=== PATIENT | male | born 1940 | race Caucasian/White ===

== ENCOUNTER 2016-05-30 23:40 | Emergency (ER) | payer MEDICARE, MEDICAID ==
[~2016-05-30 23:40] MED LIST: /ATOR40TA; /ATOR40TA PO; /ESOM40CA; /ESOM40CA PO; ACET-654 PO; ALBU17IN INH; ALBU83IN INH; ALBUTEROL SULFATE; ALBUTEROL/ATROVENT; ALPR0.25 PO; AMLO10TA; AMLO10TA2 PO; ASPI81TA4 PO; ASPI81TA83; ASPI81TA85 PO; ATOR40TA PO; AUGM875T27 PO; AZIT250T3 PO; BISO10TA6 PO; BUDE20IN; CIPR500T89 PO; CLOP75TA2 PO; CODE60TA2 PO; COLA100C PO; COLA100C2; COMBAER6 INH; DOCU100C PO; DOCU10CA PO; DOKTAB2 PO; DULC10SU2 PR; FERR140T PO; FERR325T PO; FERR325T3 PO; FLAG500T PO; FLON0.054; FLUTISP; FURO40TA2 PO; HYDR25TAB PO; IPRA2IN INH; IPRASOL4 INH; K-TA10TA2 PO; LASI40TA PO; LEVA500T PO; LEVA750T PO; LISI20TA3 PO; LORA10TA2 PO; LOVE1INJ2 SC; MAALSUS18 PO; MICR10CA PO; MILKSUS PO; MULTLIQ7 PO; MYLASUS2 PO; NEUR300C PO; NICO14DI20 TD; NICO14DI3; NICO21PAT TD; NICO7DIS23 TD; NITR4TASL SL; NORCOTAB PO; NORV5TAB; OCEA0.654; OMEP20CA3 PO; OMEP40CA2 PO; PANT40TA2 PO; PARO20TA2 PO; PERC5TAB8; PLAV75TA2; PRED10TA PO; PRED20TA PO; PRED20TAB PO; PRED50TA PO; PRIL40CA PO; PROA1AER IN; PROA1AER INH; PROAAER INH; PROTPAK PO; REGL10TA6 PO; SALI0.653; SUCR1TA PO; SYMB16INH INH; THEO1CAP2 PO; TIZA4CAP3 PO; TRAM50TA2 PO; TYLE167L PO; TYLE325T5 PO; ULTR50TA PO; VITA500C24 PO; VITMTA PO; XANA0.25 PO; ZANT1TAB PO; ZEBE5TAB; ZITHTAB PO; [UNRECOGNIZED DRUG - CODE] PO; [UNRECOGNIZED DRUG - CODE] PO; combivent INH; z-pack PO
[2016-05-31] MEDS ORDERED: ONDANSETRON 4MG/2ML VIAL (J2405) As Ordered ONE (00:42)
[2016-05-31] MEDS ORDERED: MORPHINE 2 MG/ML 1ML SYRINGE As Ordered ONE (00:42)
[2016-05-31 01:06] LABS: VENOUS BASE EXCESS 4.3 (-2.0-2.0); VENOUS O2 SATURATION 54.5 % (60.0-80.0); VENOUS PARTIAL PRESSURE CO2 60.5 mmHg (38.0-50.0); VENOUS PARTIAL PRESSURE O2 28.8 mmHg (30.0-50.0); VENOUS STANDARD HCO3 27.3 MEQ/L; VENOUS TOTAL CO2 33.6 MEQ/L (24.0-28.0)
[2016-05-31 01:15] LABS: BASO % 0.4 % (0.0-1.0); EOS # 0.2 K/mm3 (0.0-0.50); EOS % 1.8 % (0.0-3.0); LARGE UNSTAINED CELL # 0.1 K/mm3 (0.0-0.4); LARGE UNSTAINED CELL % 1.5 % (0.0-4.0); LYMPH # 0.9 K/mm3 (1.5-4.5); MEAN CORPUSCULAR HEMOGLOBIN 26.9 pg (27.0-33.0); MEAN CORPUSCULAR HGB CONC 32.1 g/dl (32.0-36.5); MEAN CORPUSCULAR VOLUME 83.8 fl (80.0-96.0); MONO # 0.5 K/mm3 (0.0-0.8); MONO % 5.2 % (0.0-5.0); NEUTROPHILS # 7.4 K/mm3 (1.8-7.7); PLATELET COUNT, AUTOMATED 382 k/mm3 (150-450); RED CELL DISTRIBUTION WIDTH 15.1 % (11.5-14.5); WHITE BLOOD COUNT 9.1 K/mm3 (4.0-10.0)
[2016-05-31 01:35] LABS: CALCIUM LEVEL 8.8 MG/DL (8.8-10.2); CREATININE FOR GFR 1.24 MG/DL (0.70-1.30); POTASSIUM SERUM 4.2 MEQ/L (3.5-5.1)
[2016-05-31] MEDS ORDERED: FUROSEMIDE 40 MG/4 ML VIAL (J1940) As Ordered ONE (01:55)
[2016-05-31] MEDS ORDERED: GASTROGRAFIN SOLUTION 30ML (Q9963) As Ordered ONE (01:59)
[2016-05-31] MEDS ORDERED: IPRATROPIUM 0.5MG/ALBUTEROL 2.5MG INH SOL UD 3ML (DUONEB)(J7620) As Ordered ONE (02:50)
[2016-05-31] MEDS ORDERED: ISOVUE-370 76% 100ML VIAL (Q9967) As Ordered ONE (03:29)
--- NOTE | 2016-05-31 04:50 | REPUSA ---
CLINICAL HISTORY: Abdominal pain. TECHNIQUE: Multiple axial, sagittal and coronal CT images were obtained through the abdomen and pelvi s after administration of oral and intravenous contrast material. COMMENTS: Comparison is made to the prior exam performed on 06/07/2015. The liver is of uniform attenuation without mass or defect. There is no intra or extrahepatic biliary ductal dilatation. The spleen is normal. The gallbladder contains layering sludge/stones. The pancre as is of normal contour and attenuation characteristics. There is no evidence of adrenal mass. Right nephrectomy. There is no evidence of renal or ureteral mass. No renal or ureteral calculi are i dentified. There is no hydroureter or hydronephrosis. No evidence for appendicitis. There is no bowel wall thickening. No evidence for small or large tito l obstruction. There is no evidence of abdominal ascites or lymphadenopathy. There is no evidence of intrinsic or extrinsic bladder mass. There is no pelvic ascites or lymphadeno jose eduardo. Right inguinal hernia containing nonincarcerated small bowel is. Moderate large bowel fecal st asis. Mild prostatomegaly. Prostatic calcifications. Images of the lung bases show no evidence of pleural or parenchymal mass. There are no pleural effusi ons. Bilateral basilar atelectatic pulmonary changes more prominent on the right side. The bony structures are free of lytic or blastic lesions. Multilevel degenerative changes are seen in volving the thoracolumbar spine. Scattered calcifications are seen involving the aorta and major bran ches compatible with atherosclerosis. IMPRESSION: Right nephrectomy. Constipation. Nonincarcerated right inguinal hernia. Clinical evaluation is suggested. Thank you for your kind referral of this patient.
--- NOTE | 2016-05-31 06:59 | EDDOCDS ---
Physician Documentation [facility] Name: Eliel Silvestre Age: 76 yrs Sex: Male : 1940 Arrival Date: 05/30/2016 Time: 23:40 Bed 5 Private MD: Unknown Pcp Disposition: 05/31 06:05 Critical Care: Critical care not applicable. pc Disposition: 05/31/16 06:07 Discharged to Home/Self Care. Impression: Constipation, Unspecified combined systolic (congestive) and diastolic (congestive) heart failure, Chronic obstructive pulmonary disease, unspecified, Unilateral inguinal hernia, without obstruction or gangrene, recurrent - right. - Condition is Stable. - Discharge Instructions: Constipation, Adult. - Prescriptions for Miralax 17 gram/dose - take 17 gram by ORAL route once daily As needed dilute in 8 ounces of water or juice; 1 bottle. - Medication Reconciliation, Local Pharmacy Hours form. - Follow up: Michael Chavarria MD; When: Call to arrange an appointment; Reason: Continuance of care. - Problem is new. - Symptoms have improved. HPI: 00:32 This 76 yrs old Male presents to ER via Ambulance with complaints of pc Constipation. 00:32 The history is obtained from the patient. He says he has not been able to have a bowel pc movement in 2 days, which is causing his right inguinal hernia to hurt more than usual. He denies any nausea or vomiting or appetite changes. He denies fevers or chills. He had a prior repair that failed and he is left with a large hernia. He has end stage COPD, and CHF and says his coughing and breathing status are unchanged. The patient has experienced similar episodes in the past, multiple times. The patient has been recently seen by their primary care provider, for a routine, regularly scheduled appointment. 00:32 At their worst, the symptoms were a 10 out of 10. In the emergency department, the pc symptoms are a 10 out of 10. Historical: - Allergies: GABAPENTIN; BENZODIAZEPINESreported reaction to unknown benzodiazepine; - Home Meds: 1. atorvastatin 40 mg oral tab once daily (Last dose: 05/30/2016) 2. Combivent Inhl Unknown every 6 hours (Last dose: 05/31/2016) 3. DOK 100 mg oral tab 1 tab 2 times per day (Last dose: 05/30/2016) 4. ferrous sulfate 325 mg (65 mg iron) Oral tab daily (Last dose: 05/30/2016) 5. omeprazole 20 mg Oral cpDR 2 caps 2 times per day (Last dose: 05/30/2016) 6. Oxygen 2.0-2.5 L continuous (Last dose: 05/31/2016) 7. Paxil 20 mg Oral tab 1 tab once daily (Last dose: 05/30/2016) 8. prednisone 10 mg Oral tab once daily (Last dose: 05/30/2016) 9. symbicort 160-4.5 twice a day (Last dose: 05/30/2016) 10. tramadol 50 mg Oral tab 1 tab every 6 hours (Last dose: Unknown) 11. Xanax 0.25 mg Oral tab 1 tab 3 times per day for Anxiety (Last dose: 05/30/2016) 12. multivitamin Oral tab 1 tab daily - PMHx: COPD; Cataracts; cancer, kidney; colon polyps; - PSHx: stent, vascular (BLE's); Hernia repair- Right inguinal; Nephrectomy- Right; - The history from nurses notes was reviewed: and I agree with what is documented. - Social history: Smoking status: Patient uses tobacco products, light tobacco smoker. Patient uses Patient is visually impaired. - Family history: Not pertinent. - : The pt / caregiver states he / she is not on anticoagulants. Home medication list is obtained from the patient, pill bottles. - Hospitalizations: : No recent hospitalization is reported. - Exposure Risk Screening:: None identified. - Immunization history:: All immunizations up-to-date. - Social history:: the patient smokes cigarettes 2ppd the patient drinks alcohol, socially. - Code Status:: Full code. ROS: 00:32 All systems are negative except as listed. pc Exam: 00:32 General Appearance: alert, the patient is in mild distress. pc 00:32 EENT: normal eye inspection, ears, nose and throat normal, pharynx normal, mucous membranes moist 00:32 Neck: The exam reveals no acute abnormalities. ROM is normal and painless. No nuchal rigidity is noted.. 00:32 Respiratory: no respiratory distress, Breath sounds: wheezing, scattered, Decreased breath sounds, in the left posterior lower lobe and right posterior lower lobe. 00:32 CVS: regular pulse rate, regular rhythm, normal S1 and S2, no murmurs, strong peripheral pulses, normal capillary refill. 00:32 Abdomen: non-tender, no organomegaly, distended, tympanic to percussion a hernia is noted in the right inguinal area, and is not incarcerated. 00:32 Back: normal inspection. 00:32 Skin: skin color is normal, warm, dry. 00:32 Extremities: The extremities have a grossly normal appearance. 00:32 Neuro: oriented x 3, cranial nerves normal as tested, no motor deficits, no sensory deficits. 00:32 Psych: normal mood. Vital Signs: 05/30 23:48 BP 149 / 72; Pulse 103; Resp 20; Temp 96.5(O); Pulse Ox 94% on 2 lpm NC; Weight 58.97 baljeet kg / 130.01 lbs (R); Height 5 ft. 5 in. (165.10 cm) (R); Pain 01/30; 05/31 00:54 BP 135 / 68 (auto/); mv5 00:55 Pulse 98 MON; Pulse Ox 96% ; mv5 01:24 BP 128 / 61 (auto/); mv5 01:25 Pulse 98 MON; Pulse Ox 94% ; mv5 01:54 BP 150 / 63 (auto/); mv5 01:55 Pulse 98 MON; Pulse Ox 100% ; mv5 02:24 BP 134 / 67 (auto/); mv5 02:25 Pulse 98 MON; Pulse Ox 88% ; mv5 02:45 Pulse 96 MON; Pulse Ox 97% ; mv5 03:24 BP 132 / 69 (auto/); mv5 03:24 Pulse 74 MON; Pulse Ox 82% ; mv5 03:54 BP 124 / 61 (auto/); mv5 03:55 Pulse 94 MON; Pulse Ox 89% ; mv5 04:04 BP 131 / 62 (auto/); mv5 04:05 Pulse 96 MON; Pulse Ox 86% ; mv5 04:24 BP 114 / 56 (auto/); mv5 04:27 Pulse 98 MON; Pulse Ox 83% ; mv5 04:54 BP 120 / 58 (auto/); mv5 04:55 Pulse 92 MON; Pulse Ox 97% ; mv5 05:54 BP 139 / 79 (auto/); mv5 05:55 Pulse 106 MON; Pulse Ox 86% 2 lpm ; mv5 06:17 BP 117 / 57; Pulse 91; Resp 18; Temp 99.1(TE); Pulse Ox 95% 2 lpm ; mv5 02 23:48 Body Mass Index 21.63 (58.97 kg, 165.10 cm) baljeet MDM: 00:19 Abdomen, Flat\E\Upright,PA Chest Ordered. EDMS 00:21 IV Saline Lock ordered. pc 00:22 CBC with Diff Ordered. EDMS 00:22 MED Profile Ordered. EDMS 00:22 Lactic Acid (Fields tube on ice) Ordered. EDMS 00:22 Venous Blood Gas (large pea green tube on ice) Ordered. EDMS 00:23 BNP Ordered. EDMS 00:32 Differential Diagnosis: constipation r/o SBO; right inguinal hernia unchanged; end pc stage COPD; CHF. Plan: labs, imaging, meds. 00:38 morphine 2 mg IVP once ordered. pc 00:38 Ondansetron 4 mg IVP once ordered. pc 00:56 Financial registration complete. hs2 01:34 CBC with Diff Reviewed. pc 01:34 Venous Blood Gas (large pea green tube on ice) Reviewed. pc 01:51 MED Profile Reviewed. pc 01:51 BNP Reviewed. pc 01:51 Lactic Acid (Fields tube on ice) Reviewed. pc 01:53 Furosemide 40 mg IVP once ordered. pc 01:53 CT ABD & PELVIS: IV and Oral Contrast Ordered. EDMS 02:05 Diatrizoate Meglumine & Sodium Liquid 10 ml PO once; mix in 290cc of water ordered. sls1 02:37 Diatrizoate Meglumine & Sodium Liquid 10 ml PO once; mix in 290cc of water ordered. mv5 02:44 Albuterol-Ipratropium 3 ml Inhalation once ordered. sls1 03:25 [facility] Payment Agreement was scanned into [employer] and attached to record. hs2 04:50 Enema - Oil Retention ordered. pc 04:50 Data reviewed: old medical records, vital signs, nurses notes, lab test results, all radiology studies and available results. Test interpretation: LAB - all labs as ordered have been reviewed, interpreted and considered in the overall management of the clinical presentation; X-RAY - interpreted by me, 3-view abdomen series; no acute disease, interpreted by Radiologist and personally reviewed, Abdomen/Pelvis CT; right inguinal hernia without incarceration; constipation; right nephrectomy else nad. 06:05 The patient has been re-examined and re-evaluated. The patient's symptoms have mildly pc improved after treatment. Disposition: The historical points, examination findings, and any diagnostic results supporting the provided diagnosis, were discussed with the patient or legal guardian. The need for outpatient follow up with the provider listed on their discharge instructions was discussed. They were encouraged to return to [facility], or the nearest ED, if symptoms worsen/persist, or for any other questions/concerns. Administered Medications: 00:58 Drug: morphine 2 mg [morphine 2 mg/mL intravenous cartridge (1 mL)] Route: IVP; Site: mv5 left forearm; 02:08 Follow up: Response: No Adverse Reaction; Pain is decreased mv5 00:58 Drug: Ondansetron 4 mg [ondansetron HCl 2 mg/mL intravenous solution (2 mL)] Route: mv5 IVP; Site: left forearm; 02:09 Follow up: Response: No Adverse Reaction mv5 01:58 Drug: Furosemide 40 mg [furosemide 10 mg/mL injection solution (4 mL)] Route: IVP; mv5 Site: left forearm; 02:37 Follow up: Response: No Adverse Reaction mv5 02:07 Drug: Diatrizoate Meglumine & Sodium 10 ml [diatrizoate meglumine and diat.sodium 66 mv5 %-10 % oral solution (10 mL)] Route: PO; 02:37 Follow up: Response: No Adverse Reaction mv5 02:37 Drug: Diatrizoate Meglumine & Sodium 10 ml [diatrizoate meglumine and diat.sodium 66 mv5 %-10 % oral solution (10 mL)] Route: PO; 03:27 Follow up: Response: No Adverse Reaction mv5 02:55 Drug: Albuterol-Ipratropium 3 ml [ipratropium-albuterol 0.5 mg-3 mg(2.5 mg base)/3 mL lf2 nebulization soln (3 mL)] Route: Inhalation; Signatures: Dispatcher [employer] EDMS Camron Flores MD MD pc Strong, Shannon, RN RN sls1 Clarita Monroe, Kimo Reg hs2 Ciarra Houston RN RN mv5 Katelin Yen RT lf2 The chart was reviewed and I authenticate all verbal orders and agree with the evaluation and treatment provided.Corrections: (The following items were deleted from the chart) 00:41 00:04 Allergies: BENZODIAZEPINES; mv5 mv5 Attachments: 03:25 [facility] [place] Agreement hs2 MTDD
--- NOTE | 2016-05-31 06:59 | EDDOCDS ---
Nurse's Notes [facility] Name: Eliel Silvestre Age: 76 yrs Sex: Male : 1940 Arrival Date: 05/30/2016 Time: 23:40 Bed 5 Private MD: Unknown Pcp Diagnosis: Constipation;Unspecified combined systolic (congestive) and diastolic (congestive) heart failure;Chronic obstructive pulmonary disease, unspecified;Unilateral inguinal hernia, without obstruction or gangrene, recurrent-right Presentation: 05/30 23:52 Presenting complaint: EMS states: EMS reports pt has been unable to have BM x 2 days, mv5 pt has inguinal pain. Hx right inguinal hernia repair several years ago. Adult Sepsis Screening: The patient does not have new or worsening altered mentation. Patient's respiratory rate is less than 22. Systolic blood pressure is greater than 100. Patient has a qSOFA score of 0- Negative Sepsis Screen. Suicide/Homicide risk assessment-. Status: Patient is not a field service representative or dependent. Transition of care: patient was not received from another setting of care. 23:52 Acuity: FLIP Level 3 mv5 23:52 Method Of Arrival: Ambulance mv5 Triage Assessment: 05/31 00:04 General: Appears in no apparent distress. Pain: Location: right femoral area Pain mv5 currently is 10 out of 10 on a pain scale. Pain does not radiate. Quality of pain is described as sharp. The patient is triaged at the bedside. See Assessment in Nurses Notes section of ED record. Neurological: Level of Consciousness is awake, alert, Oriented to person, place, time. Cardiovascular: Capillary refill < 3 seconds. Respiratory: Airway is patent Respiratory effort is even, unlabored, Respiratory pattern is regular, symmetrical, usine 02 per baseline \T\ 2lpm by nasal cannula. GI: Abdomen is flat, Bowel sounds diminished in right upper quadrant, left upper quadrant, right lower quadrant and left lower quadrant Abd is tender to palpation in right upper quadrant. : No deficits noted. Derm: Skin is pink, warm & dry. Historical: - Allergies: GABAPENTIN; BENZODIAZEPINESreported reaction to unknown benzodiazepine; - Home Meds: 1. atorvastatin 40 mg oral tab once daily (Last dose: 05/30/2016) 2. Combivent Inhl Unknown every 6 hours (Last dose: 05/31/2016) 3. DOK 100 mg oral tab 1 tab 2 times per day (Last dose: 05/30/2016) 4. ferrous sulfate 325 mg (65 mg iron) Oral tab daily (Last dose: 05/30/2016) 5. omeprazole 20 mg Oral cpDR 2 caps 2 times per day (Last dose: 05/30/2016) 6. Oxygen 2.0-2.5 L continuous (Last dose: 05/31/2016) 7. Paxil 20 mg Oral tab 1 tab once daily (Last dose: 05/30/2016) 8. prednisone 10 mg Oral tab once daily (Last dose: 05/30/2016) 9. symbicort 160-4.5 twice a day (Last dose: 05/30/2016) 10. tramadol 50 mg Oral tab 1 tab every 6 hours (Last dose: Unknown) 11. Xanax 0.25 mg Oral tab 1 tab 3 times per day for Anxiety (Last dose: 05/30/2016) 12. multivitamin Oral tab 1 tab daily - PMHx: COPD; Cataracts; cancer, kidney; colon polyps; - PSHx: stent, vascular (BLE's); Hernia repair- Right inguinal; Nephrectomy- Right; - The history from nurses notes was reviewed: and I agree with what is documented. - Social history: Smoking status: Patient uses tobacco products, light tobacco smoker. Patient uses Patient is visually impaired. - Family history: Not pertinent. - : The pt / caregiver states he / she is not on anticoagulants. Home medication list is obtained from the patient, pill bottles. - Hospitalizations: : No recent hospitalization is reported. - Exposure Risk Screening:: None identified. - Immunization history:: All immunizations up-to-date. - Social history:: the patient smokes cigarettes 2ppd the patient drinks alcohol, socially. - Code Status:: Full code. Screenin:10 Screening information is obtained from the patient. Fall risk: At risk due to prior mv5 history of falls, Pt reports he is frequently unsteady, uses walker and wheelchair at home.. Assistance ADL's: Requires assistance with housework, assistance is provided by medication administration, assistance is provided by. Abuse/DV Screen: The patient / caregiver reports he/she is: not in a situation that causes fear, pain or injury. Nutritional screening: No deficits noted. Advance Directives: There is no active DNR order. home support is adequate. Assessment: 00:10 General: See triage assessment. mv5 00:55 General: Appears uncomfortable, Behavior is cooperative. Neurological: Level of mv5 Consciousness is awake, alert, Oriented to person, place, time. Respiratory: Airway is patent Respiratory effort is even, unlabored, Respiratory pattern is regular, symmetrical. Derm: Skin is pink, warm & dry. 01:41 General: Appears comfortable, Behavior is cooperative. Neurological: Level of mv5 Consciousness is awake, alert. Respiratory: Airway is patent Respiratory effort is even, unlabored, Respiratory pattern is regular, symmetrical. Derm: Skin is pink, warm & dry. 02:00 Reassessment: Patient states symptoms have improved. mv5 02:09 General:. mv5 02:30 General: Appears in no apparent distress, Pt assisted to bedside commode.. mv5 Neurological: Level of Consciousness is awake, alert, Oriented to person, place, time. Respiratory: Airway is patent Respiratory effort is even, unlabored, Respiratory pattern is regular, symmetrical. Derm: Skin is pink, warm & dry. 02:46 General: Pt states he is due for routine nebulizer, RT aware, orders received.. mv5 03:07 General: Appears in no apparent distress, RT in to administer neb.. mv5 03:10 General: Appears in no apparent distress, Pt resting with eyes closed, wakes easily to mv5 voice. Pt denies respiratory symptoms following neb but reports increase in right groin pain. MD aware.. 03:40 General: Pt to CT via stretcher.. mv5 04:14 General: Pt awaiting CT report. Given blanket for comfort.. mv5 05:03 General: Appears in no apparent distress. Neurological: Level of Consciousness is mv5 awake, alert. Respiratory: Airway is patent Respiratory effort is even, unlabored, Respiratory pattern is regular, symmetrical. Derm: Skin is pink, warm & dry. 06:13 General: Appears in no apparent distress. General: pt given coffee as requested.. mv5 Neurological: Level of Consciousness is awake, alert, Oriented to person, place, time. Respiratory: Airway is patent Respiratory effort is even, unlabored, Respiratory pattern is regular, symmetrical. Derm: Skin is pink, warm & dry. Vital Signs: 05/30 23:48 BP 149 / 72; Pulse 103; Resp 20; Temp 96.5(O); Pulse Ox 94% on 2 lpm NC; Weight 58.97 baljeet kg (R); Height 5 ft. 5 in. (165.10 cm) (R); Pain 10/; 05/31 00:54 BP 135 / 68 (auto/); mv5 00:55 Pulse 98 MON; Pulse Ox 96% ; mv5 01:24 BP 128 / 61 (auto/); mv5 01:25 Pulse 98 MON; Pulse Ox 94% ; mv5 01:54 BP 150 / 63 (auto/); mv5 01:55 Pulse 98 MON; Pulse Ox 100% ; mv5 02:24 BP 134 / 67 (auto/); mv5 02:25 Pulse 98 MON; Pulse Ox 88% ; mv5 02:45 Pulse 96 MON; Pulse Ox 97% ; mv5 03:24 BP 132 / 69 (auto/); mv5 03:24 Pulse 74 MON; Pulse Ox 82% ; mv5 03:54 BP 124 / 61 (auto/); mv5 03:55 Pulse 94 MON; Pulse Ox 89% ; mv5 04:04 BP 131 / 62 (auto/); mv5 04:05 Pulse 96 MON; Pulse Ox 86% ; mv5 04:24 BP 114 / 56 (auto/); mv5 04:27 Pulse 98 MON; Pulse Ox 83% ; mv5 04:54 BP 120 / 58 (auto/); mv5 04:55 Pulse 92 MON; Pulse Ox 97% ; mv5 05:54 BP 139 / 79 (auto/); mv5 05:55 Pulse 106 MON; Pulse Ox 86% 2 lpm ; mv5 06:17 BP 117 / 57; Pulse 91; Resp 18; Temp 99.1(TE); Pulse Ox 95% 2 lpm ; mv5 05/30 23:48 Body Mass Index 21.63 (58.97 kg, 165.10 cm) baljeet Vitals: 00:04 Log In Time N/A - ambulance arrival. 5 ED Course: 05/30 23:42 Patient visited by Khanh Villalobos PCA. mdr 23:42 Unknown Pcp is Private Physician. mdr 23:42 Ciarra Houston,RN is Primary Nurse. mdr 23:42 Patient moved to Waiting mdr 23:42 Patient moved to 5 mdr 23:48 Patient visited by Melia Patel PCA. baljeet 23:55 Triage Initiated mv5 05/31 00:09 Camron Flores MD is Attending Physician. pc 00:10 The patient / caregiver is instructed regarding the plan of care and ED course. mv5 00:18 Patient visited by Camron Flores MD. pc 00:20 Patient moved to Radiology ardiel 00:35 Patient moved to 5 adriel 00:58 BNP Sent. mv5 00:58 Venous Blood Gas (large pea green tube on ice) Sent. mv5 00:58 Lactic Acid (Fields tube on ice) Sent. mv5 00:58 MED Profile Sent. mv5 00:58 CBC with Diff Sent. mv5 00:59 Inserted saline lock: 18 gauge in left forearm and blood collected. The patient mv5 tolerated the procedure well. 01:22 Patient visited by Ciarra Houston RN. mv5 01:54 Patient visited by Ciarra Houston RN. mv5 02:31 Patient visited by Ciarra Houston RN. mv5 03:07 Patient visited by Ciarra Houston RN. mv5 03:25 [facility] Payment Agreement was scanned into [employer] and attached to record. hs2 03:40 Patient visited by Ciarra Houston RN. mv5 04:15 Patient visited by Ciarra Houston RN. mv5 05:18 Patient visited by Ciarra Houston RN. mv5 05:27 CT ABD & PELVIS: IV and Oral Contrast Returned. EDMS 06:07 Michael Chavarria MD is Referral Physician. pc Administered Medications: 00:58 Drug: morphine 2 mg [morphine 2 mg/mL intravenous cartridge (1 mL)] Route: IVP; Site: mv5 left forearm; 02:08 Follow up: Response: No Adverse Reaction; Pain is decreased mv5 00:58 Drug: Ondansetron 4 mg [ondansetron HCl 2 mg/mL intravenous solution (2 mL)] Route: mv5 IVP; Site: left forearm; 02:09 Follow up: Response: No Adverse Reaction mv5 01:58 Drug: Furosemide 40 mg [furosemide 10 mg/mL injection solution (4 mL)] Route: IVP; mv5 Site: left forearm; 02:37 Follow up: Response: No Adverse Reaction mv5 02:07 Drug: Diatrizoate Meglumine & Sodium 10 ml [diatrizoate meglumine and diat.sodium 66 mv5 %-10 % oral solution (10 mL)] Route: PO; 02:37 Follow up: Response: No Adverse Reaction mv5 02:37 Drug: Diatrizoate Meglumine & Sodium 10 ml [diatrizoate meglumine and diat.sodium 66 mv5 %-10 % oral solution (10 mL)] Route: PO; 03:27 Follow up: Response: No Adverse Reaction mv5 02:55 Drug: Albuterol-Ipratropium 3 ml [ipratropium-albuterol 0.5 mg-3 mg(2.5 mg base)/3 mL lf2 nebulization soln (3 mL)] Route: Inhalation; RT: 02:55 Initial Med Neb Given as ordered Patient was instructed and evaluated on procedure lf2 Patient tolerated procedure well without adverse effect. O2 via nasal cannula \T\ 2L/min. Respiratory: Airway is patent Respiratory effort is even, unlabored, Respiratory pattern is regular symmetrical, Breath sounds are diminished bilaterally. Reports shortness of breath on exertion cough that is productive Denies pain with respiration. Order Results: Lab Order: CBC with Diff; SPEC'M 05/31/16 00:39 Test: WHITE BLOOD COUNT; Value: 9.1; Range: 4.0-10.0; Units: K/mm3; Status: F Test: RED BLOOD COUNT; Value: 4.64; Range: 4.30-6.10; Units: M/mm3; Status: F Test: HEMOGLOBIN; Value: 12.5; Range: 14.0-18.0; Abnormal: Below low normal; Units: g/dl; Status: F Test: HEMATOCRIT; Value: 38.9; Range: 42.0-52.0; Abnormal: Below low normal; Units: %; Status: F Test: MEAN CORPUSCULAR VOLUME; Value: 83.8; Range: 80.0-96.0; Units: fl; Status: F Test: MEAN CORPUSCULAR HEMOGLOBIN; Value: 26.9; Range: 27.0-33.0; Abnormal: Below low normal; Units: pg; Status: F Test: MEAN CORPUSCULAR HGB CONC; Value: 32.1; Range: 32.0-36.5; Units: g/dl; Status: F Test: RED CELL DISTRIBUTION WIDTH; Value: 15.1; Range: 11.5-14.5; Abnormal: Above high normal; Units: %; Status: F Test: PLATELET COUNT, AUTOMATED; Value: 382; Range: 150-450; Units: k/mm3; Status: F Test: NEUTROPHILS %; Value: 81.0; Range: 36.0-66.0; Abnormal: Above high normal; Units: %; Status: F Test: LYMPH %; Value: 10.0; Range: 24.0-44.0; Abnormal: Below low normal; Units: %; Status: F Test: MONO %; Value: 5.2; Range: 0.0-5.0; Abnormal: Above high normal; Units: %; Status: F Test: EOS %; Value: 1.8; Range: 0.0-3.0; Units: %; Status: F Test: BASO %; Value: 0.4; Range: 0.0-1.0; Units: %; Status: F Test: LARGE UNSTAINED CELL %; Value: 1.5; Range: 0.0-4.0; Units: %; Status: F Test: NEUTROPHILS #; Value: 7.4; Range: 1.8-7.7; Units: K/mm3; Status: F Test: LYMPH #; Value: 0.9; Range: 1.5-4.5; Abnormal: Below low normal; Units: K/mm3; Status: F Test: MONO #; Value: 0.5; Range: 0.0-0.8; Units: K/mm3; Status: F Test: EOS #; Value: 0.2; Range: 0.0-0.50; Units: K/mm3; Status: F Test: BASO #; Value: 0.0; Range: 0.0-0.2; Units: K/mm3; Status: F Test: LARGE UNSTAINED CELL #; Value: 0.1; Range: 0.0-0.4; Units: K/mm3; Status: F Lab Order: MED Profile; SPEC'05/31/16 00:39 Test: GLUCOSE, FASTING; Value: 74; Range: 83-110; Abnormal: Below low normal; Units: MG/DL; Status: F Test: BLOOD UREA NITROGEN; Value: 17; Range: 7-18; Units: MG/DL; Status: F Test: CREATININE FOR GFR; Value: 1.24; Range: 0.70-1.30; Units: MG/DL; Status: F Test: GLOMERULAR FILTRATION RATE; Value: 60.0; Range: >42; Status: F Test: SODIUM LEVEL; Value: 138; Range: 136-145; Units: MEQ/L; Status: F Test: POTASSIUM SERUM; Value: 4.2; Range: 3.5-5.1; Units: MEQ/L; Status: F Test: CHLORIDE LEVEL; Value: 99; Range: 98-107; Units: MEQ/L; Status: F Test: CARBON DIOXIDE LEVEL; Value: 32; Range: 21-32; Units: MEQ/L; Status: F Test: ANION GAP; Value: 7; Range: 8-16; Abnormal: Below low normal; Units: MEQ/L; Status: F Test: CALCIUM LEVEL; Value: 8.8; Range: 8.8-10.2; Units: MG/DL; Status: F Test Note: ; Units are mL/min/1.73 m2 Chronic Kidney Disease Staging per NKF: Stage I & II GFR >=60 Normal to Mildly Decreased Stage III GFR 30-59 Moderately Decreased Stage IV GFR 15-29 Severely Decreased Stage V GFR <15 Very Little GFR Left ESRD GFR <15 on RELIGIOUS EDUCATOR Lab Order: Lactic Acid (Fields tube on ice); SPEC05/31/16 00:39 Test: LACTIC ACID SEPSIS PROTOCOL; Value: 1.6; Range: 0.4-2.0; Units: MMOL/L; Status: F Lab Order: Venous Blood Gas (large pea green tube on ice); SPEC05/31/16 00:39 Test: VENOUS PH; Value: 7.338; Range: 7.330-7.430; Units: UNITS; Status: F Test: VENOUS PARTIAL PRESSURE CO2; Value: 60.5; Range: 38.0-50.0; Abnormal: Above high normal; Units: mmHg; Status: F Test: VENOUS PARTIAL PRESSURE O2; Value: 28.8; Range: 30.0-50.0; Abnormal: Below low normal; Units: mmHg; Status: F Test: VENOUS TOTAL CO2; Value: 33.6; Range: 24.0-28.0; Abnormal: Above high normal; Units: MEQ/L; Status: F Test: VENOUS HCO3; Value: 31.8; Range: 23.0-27.0; Abnormal: Above high normal; Units: MEQ/L; Status: F Test: VENOUS BASE EXCESS; Value: 4.3; Range: -2.0-2.0; Abnormal: Above high normal; Status: F Test: VENOUS STANDARD HCO3; Value: 27.3; Units: MEQ/L; Status: F Test: VENOUS O2 SATURATION; Value: 54.5; Range: 60.0-80.0; Abnormal: Below low normal; Units: %; Status: F Lab Order: BNP; SPEC'M 05/31/16 00:39 Test: BRAIN NATRIURETIC PEPTIDE; Value: 1250; Range: <100; Abnormal: Above high normal; Units: PG/ML; Status: F Radiology Order: CT ABD & PELVIS: IV and Oral Contrast Test: CT ABD & PELVIS: IV and Oral Contrast REASON FOR EXAMINATION: right inguional hernia r/o strangulation; ; CLINICAL HISTORY: Abdominal pain.; TECHNIQUE: Multiple axial, sagittal and coronal CT images were obtained through the abdomen and pelvi; s after administration of oral and intravenous contrast material.; COMMENTS:; Comparison is made to the prior exam performed on 06/07/2015.; The liver is of uniform attenuation without mass or defect. There is no intra or extrahepatic biliary; ductal dilatation. The spleen is normal. The gallbladder contains layering sludge/stones. The pancre; as is of normal contour and attenuation characteristics. There is no evidence of adrenal mass.; Right nephrectomy. There is no evidence of renal or ureteral mass. No renal or ureteral calculi are i; dentified. There is no hydroureter or hydronephrosis.; No evidence for appendicitis. There is no bowel wall thickening. No evidence for small or large tito; l obstruction. There is no evidence of abdominal ascites or lymphadenopathy.; There is no evidence of intrinsic or extrinsic bladder mass. There is no pelvic ascites or lymphadeno; jose eduardo. Right inguinal hernia containing nonincarcerated small bowel is. Moderate large bowel fecal st; asis. Mild prostatomegaly. Prostatic calcifications.; Images of the lung bases show no evidence of pleural or parenchymal mass. There are no pleural effusi; ons. Bilateral basilar atelectatic pulmonary changes more prominent on the right side.; The bony structures are free of lytic or blastic lesions. Multilevel degenerative changes are seen in; volving the thoracolumbar spine. Scattered calcifications are seen involving the aorta and major bran; ches compatible with atherosclerosis.; IMPRESSION:; Right nephrectomy.; Constipation.; Nonincarcerated right inguinal hernia. Clinical evaluation is suggested.; Thank you for your kind referral of this patient.; ; Outcome: 06:07 Discharge ordered by Provider. 06:58 Patient left the ED. sls1 Signatures: Dispatcher [employer] EDMS Camron Flores MD MD pc Isaías Mcghee Destiny, FLEXO PRESS OPERATOR FLEXO PRESS OPERATOR Matilde Black RN RN sls1 Khanh Villalobos, FLEXO PRESS OPERATOR FLEXO PRESS OPERATOR mdr Katelin Yen,RT RT lf2 Clarita Monroe, Reg Reg hs2 Ciarra Houston,RN RN mv5 Corrections: (The following items were deleted from the chart) 00:41 00:04 Allergies: BENZODIAZEPINES; mv5 mv5 MTDD
--- NOTE | 2016-05-31 08:41 | REP ---
Abdomen series: Three views. History: Question small bowel obstruction. Abdomen pain. Findings: Supine chest radiograph shows clear well inflated lungs and sharp pleural angles. Heart is mildly enlarged unchanged from a comparison study March 03, 2016. There is no evidence of pleural effusion, pulmonary edema or free air on the supine radiograph. Supine and cross-table lateral supine views of the abdomen are presented. There is no evidence of free intraperitoneal air. There is air and stool in a nondistended colon. There are clips in right upper quadrant and central pelvis. Vascular calcification is noted. There is an arterial stent in place in the distribution of the left iliac artery. Another arterial stent is seen at the bottom edge of the field of view in the right superficial femoral artery. Moderate stool in the right colon. Impression: No evidence of free air or obstruction. Postoperative changes in the abdomen. Cardiomegaly. Arterial stent left iliac and right superficial femoral arteries. Signed by Jose Lozoya MD 05/31/2016 02:59 P
--- NOTE | 2016-06-02 07:59 | EDDOCDS ---
Physician Documentation [facility] Name: Eliel Silvestre Age: 76 yrs Sex: Male : 1940 Arrival Date: 05/30/2016 Time: 23:40 Bed 5 Private MD: Unknown Pcp Disposition: 05/31 06:05 Critical Care: Critical care not applicable. pc Disposition: 05/31/16 06:07 Discharged to Home/Self Care. Impression: Constipation, Unspecified combined systolic (congestive) and diastolic (congestive) heart failure, Chronic obstructive pulmonary disease, unspecified, Unilateral inguinal hernia, without obstruction or gangrene, recurrent - right. - Condition is Stable. - Discharge Instructions: Constipation, Adult. - Prescriptions for Miralax 17 gram/dose - take 17 gram by ORAL route once daily As needed dilute in 8 ounces of water or juice; 1 bottle. - Medication Reconciliation, Local Pharmacy Hours form. - Follow up: Michael Chavarria MD; When: Call to arrange an appointment; Reason: Continuance of care. - Problem is new. - Symptoms have improved. HPI: 00:32 This 76 yrs old Male presents to ER via Ambulance with complaints of pc Constipation. 00:32 The history is obtained from the patient. He says he has not been able to have a bowel pc movement in 2 days, which is causing his right inguinal hernia to hurt more than usual. He denies any nausea or vomiting or appetite changes. He denies fevers or chills. He had a prior repair that failed and he is left with a large hernia. He has end stage COPD, and CHF and says his coughing and breathing status are unchanged. The patient has experienced similar episodes in the past, multiple times. The patient has been recently seen by their primary care provider, for a routine, regularly scheduled appointment. 00:32 At their worst, the symptoms were a 10 out of 10. In the emergency department, the pc symptoms are a 10 out of 10. Historical: - Allergies: GABAPENTIN; BENZODIAZEPINESreported reaction to unknown benzodiazepine; - Home Meds: 1. atorvastatin 40 mg oral tab once daily (Last dose: 05/30/2016) 2. Combivent Inhl Unknown every 6 hours (Last dose: 05/31/2016) 3. DOK 100 mg oral tab 1 tab 2 times per day (Last dose: 05/30/2016) 4. ferrous sulfate 325 mg (65 mg iron) Oral tab daily (Last dose: 05/30/2016) 5. omeprazole 20 mg Oral cpDR 2 caps 2 times per day (Last dose: 05/30/2016) 6. Oxygen 2.0-2.5 L continuous (Last dose: 05/31/2016) 7. Paxil 20 mg Oral tab 1 tab once daily (Last dose: 05/30/2016) 8. prednisone 10 mg Oral tab once daily (Last dose: 05/30/2016) 9. symbicort 160-4.5 twice a day (Last dose: 05/30/2016) 10. tramadol 50 mg Oral tab 1 tab every 6 hours (Last dose: Unknown) 11. Xanax 0.25 mg Oral tab 1 tab 3 times per day for Anxiety (Last dose: 05/30/2016) 12. multivitamin Oral tab 1 tab daily - PMHx: COPD; Cataracts; cancer, kidney; colon polyps; - PSHx: stent, vascular (BLE's); Hernia repair- Right inguinal; Nephrectomy- Right; - The history from nurses notes was reviewed: and I agree with what is documented. - Social history: Smoking status: Patient uses tobacco products, light tobacco smoker. Patient uses Patient is visually impaired. - Family history: Not pertinent. - : The pt / caregiver states he / she is not on anticoagulants. Home medication list is obtained from the patient, pill bottles. - Hospitalizations: : No recent hospitalization is reported. - Exposure Risk Screening:: None identified. - Immunization history:: All immunizations up-to-date. - Social history:: the patient smokes cigarettes 2ppd the patient drinks alcohol, socially. - Code Status:: Full code. ROS: 00:32 All systems are negative except as listed. pc Exam: 00:32 General Appearance: alert, the patient is in mild distress. pc 00:32 EENT: normal eye inspection, ears, nose and throat normal, pharynx normal, mucous membranes moist 00:32 Neck: The exam reveals no acute abnormalities. ROM is normal and painless. No nuchal rigidity is noted.. 00:32 Respiratory: no respiratory distress, Breath sounds: wheezing, scattered, Decreased breath sounds, in the left posterior lower lobe and right posterior lower lobe. 00:32 CVS: regular pulse rate, regular rhythm, normal S1 and S2, no murmurs, strong peripheral pulses, normal capillary refill. 00:32 Abdomen: non-tender, no organomegaly, distended, tympanic to percussion a hernia is noted in the right inguinal area, and is not incarcerated. 00:32 Back: normal inspection. 00:32 Skin: skin color is normal, warm, dry. 00:32 Extremities: The extremities have a grossly normal appearance. 00:32 Neuro: oriented x 3, cranial nerves normal as tested, no motor deficits, no sensory deficits. 00:32 Psych: normal mood. Vital Signs: 05/30 23:48 BP 149 / 72; Pulse 103; Resp 20; Temp 96.5(O); Pulse Ox 94% on 2 lpm NC; Weight 58.97 baljeet kg / 130.01 lbs (R); Height 5 ft. 5 in. (165.10 cm) (R); Pain 01/30; 05/31 00:54 BP 135 / 68 (auto/); mv5 00:55 Pulse 98 MON; Pulse Ox 96% ; mv5 01:24 BP 128 / 61 (auto/); mv5 01:25 Pulse 98 MON; Pulse Ox 94% ; mv5 01:54 BP 150 / 63 (auto/); mv5 01:55 Pulse 98 MON; Pulse Ox 100% ; mv5 02:24 BP 134 / 67 (auto/); mv5 02:25 Pulse 98 MON; Pulse Ox 88% ; mv5 02:45 Pulse 96 MON; Pulse Ox 97% ; mv5 03:24 BP 132 / 69 (auto/); mv5 03:24 Pulse 74 MON; Pulse Ox 82% ; mv5 03:54 BP 124 / 61 (auto/); mv5 03:55 Pulse 94 MON; Pulse Ox 89% ; mv5 04:04 BP 131 / 62 (auto/); mv5 04:05 Pulse 96 MON; Pulse Ox 86% ; mv5 04:24 BP 114 / 56 (auto/); mv5 04:27 Pulse 98 MON; Pulse Ox 83% ; mv5 04:54 BP 120 / 58 (auto/); mv5 04:55 Pulse 92 MON; Pulse Ox 97% ; mv5 05:54 BP 139 / 79 (auto/); mv5 05:55 Pulse 106 MON; Pulse Ox 86% 2 lpm ; mv5 06:17 BP 117 / 57; Pulse 91; Resp 18; Temp 99.1(TE); Pulse Ox 95% 2 lpm ; mv5 02 23:48 Body Mass Index 21.63 (58.97 kg, 165.10 cm) baljeet MDM: 00:19 Abdomen, Flat\E\Upright,PA Chest Ordered. EDMS 00:21 IV Saline Lock ordered. pc 00:22 CBC with Diff Ordered. EDMS 00:22 MED Profile Ordered. EDMS 00:22 Lactic Acid (Fields tube on ice) Ordered. EDMS 00:22 Venous Blood Gas (large pea green tube on ice) Ordered. EDMS 00:23 BNP Ordered. EDMS 00:32 Differential Diagnosis: constipation r/o SBO; right inguinal hernia unchanged; end pc stage COPD; CHF. Plan: labs, imaging, meds. 00:38 morphine 2 mg IVP once ordered. pc 00:38 Ondansetron 4 mg IVP once ordered. pc 00:56 Financial registration complete. hs2 01:34 CBC with Diff Reviewed. pc 01:34 Venous Blood Gas (large pea green tube on ice) Reviewed. pc 01:51 MED Profile Reviewed. pc 01:51 BNP Reviewed. pc 01:51 Lactic Acid (Fields tube on ice) Reviewed. pc 01:53 Furosemide 40 mg IVP once ordered. pc 01:53 CT ABD & PELVIS: IV and Oral Contrast Ordered. EDMS 02:05 Diatrizoate Meglumine & Sodium Liquid 10 ml PO once; mix in 290cc of water ordered. sls1 02:37 Diatrizoate Meglumine & Sodium Liquid 10 ml PO once; mix in 290cc of water ordered. mv5 02:44 Albuterol-Ipratropium 3 ml Inhalation once ordered. sls1 03:25 [facility] Payment Agreement was scanned into [employer] and attached to record. hs2 04:50 Enema - Oil Retention ordered. pc 04:50 Data reviewed: old medical records, vital signs, nurses notes, lab test results, all radiology studies and available results. Test interpretation: LAB - all labs as ordered have been reviewed, interpreted and considered in the overall management of the clinical presentation; X-RAY - interpreted by me, 3-view abdomen series; no acute disease, interpreted by Radiologist and personally reviewed, Abdomen/Pelvis CT; right inguinal hernia without incarceration; constipation; right nephrectomy else nad. 06:05 The patient has been re-examined and re-evaluated. The patient's symptoms have mildly pc improved after treatment. Disposition: The historical points, examination findings, and any diagnostic results supporting the provided diagnosis, were discussed with the patient or legal guardian. The need for outpatient follow up with the provider listed on their discharge instructions was discussed. They were encouraged to return to [facility], or the nearest ED, if symptoms worsen/persist, or for any other questions/concerns. 13:42 Radiology Report was scanned into [employer] and attached to record. gb Administered Medications: 00:58 Drug: morphine 2 mg [morphine 2 mg/mL intravenous cartridge (1 mL)] Route: IVP; Site: mv5 left forearm; 02:08 Follow up: Response: No Adverse Reaction; Pain is decreased mv5 00:58 Drug: Ondansetron 4 mg [ondansetron HCl 2 mg/mL intravenous solution (2 mL)] Route: mv5 IVP; Site: left forearm; 02:09 Follow up: Response: No Adverse Reaction mv5 01:58 Drug: Furosemide 40 mg [furosemide 10 mg/mL injection solution (4 mL)] Route: IVP; mv5 Site: left forearm; 02:37 Follow up: Response: No Adverse Reaction mv5 02:07 Drug: Diatrizoate Meglumine & Sodium 10 ml [diatrizoate meglumine and diat.sodium 66 mv5 %-10 % oral solution (10 mL)] Route: PO; 02:37 Follow up: Response: No Adverse Reaction mv5 02:37 Drug: Diatrizoate Meglumine & Sodium 10 ml [diatrizoate meglumine and diat.sodium 66 mv5 %-10 % oral solution (10 mL)] Route: PO; 03:27 Follow up: Response: No Adverse Reaction mv5 02:55 Drug: Albuterol-Ipratropium 3 ml [ipratropium-albuterol 0.5 mg-3 mg(2.5 mg base)/3 mL lf2 nebulization soln (3 mL)] Route: Inhalation; Signatures: [facility] Camron Flores MD MD pc Milagro Baird, Reg Reg gb Matilde Hair RN RN sls1 Clarita [facility], Reg Reg hs2 Ciarra Houston RN RN mv5 Katelin Yen RT lf2 The chart was reviewed and I authenticate all verbal orders and agree with the evaluation and treatment provided.Corrections: (The following items were deleted from the chart) 00:41 00:04 Allergies: BENZODIAZEPINES; carrington [email or web address] Attachments: 03:25 [facility] Payment Agreement hs2 Chart Complete MTDD
--- NOTE | 2016-06-02 08:00 | EDDOCDS ---
Nurse's Notes [facility] Name: Eliel Silvestre Age: 76 yrs Sex: Male : 1940 Arrival Date: 05/30/2016 Time: 23:40 Bed 5 Private MD: Unknown Pcp Diagnosis: Constipation;Unspecified combined systolic (congestive) and diastolic (congestive) heart failure;Chronic obstructive pulmonary disease, unspecified;Unilateral inguinal hernia, without obstruction or gangrene, recurrent-right Presentation: 05/30 23:52 Presenting complaint: EMS states: EMS reports pt has been unable to have BM x 2 days, mv5 pt has inguinal pain. Hx right inguinal hernia repair several years ago. Adult Sepsis Screening: The patient does not have new or worsening altered mentation. Patient's respiratory rate is less than 22. Systolic blood pressure is greater than 100. Patient has a qSOFA score of 0- Negative Sepsis Screen. Suicide/Homicide risk assessment-. Status: Patient is not a teleservices representative or dependent. Transition of care: patient was not received from another setting of care. 23:52 Acuity: FLIP Level 3 mv5 23:52 Method Of Arrival: Ambulance mv5 Triage Assessment: 05/31 00:04 General: Appears in no apparent distress. Pain: Location: right femoral area Pain mv5 currently is 10 out of 10 on a pain scale. Pain does not radiate. Quality of pain is described as sharp. The patient is triaged at the bedside. See Assessment in Nurses Notes section of ED record. Neurological: Level of Consciousness is awake, alert, Oriented to person, place, time. Cardiovascular: Capillary refill < 3 seconds. Respiratory: Airway is patent Respiratory effort is even, unlabored, Respiratory pattern is regular, symmetrical, usine 02 per baseline \T\ 2lpm by nasal cannula. GI: Abdomen is flat, Bowel sounds diminished in right upper quadrant, left upper quadrant, right lower quadrant and left lower quadrant Abd is tender to palpation in right upper quadrant. : No deficits noted. Derm: Skin is pink, warm & dry. Historical: - Allergies: GABAPENTIN; BENZODIAZEPINESreported reaction to unknown benzodiazepine; - Home Meds: 1. atorvastatin 40 mg oral tab once daily (Last dose: 05/30/2016) 2. Combivent Inhl Unknown every 6 hours (Last dose: 05/31/2016) 3. DOK 100 mg oral tab 1 tab 2 times per day (Last dose: 05/30/2016) 4. ferrous sulfate 325 mg (65 mg iron) Oral tab daily (Last dose: 05/30/2016) 5. omeprazole 20 mg Oral cpDR 2 caps 2 times per day (Last dose: 05/30/2016) 6. Oxygen 2.0-2.5 L continuous (Last dose: 05/31/2016) 7. Paxil 20 mg Oral tab 1 tab once daily (Last dose: 05/30/2016) 8. prednisone 10 mg Oral tab once daily (Last dose: 05/30/2016) 9. symbicort 160-4.5 twice a day (Last dose: 05/30/2016) 10. tramadol 50 mg Oral tab 1 tab every 6 hours (Last dose: Unknown) 11. Xanax 0.25 mg Oral tab 1 tab 3 times per day for Anxiety (Last dose: 05/30/2016) 12. multivitamin Oral tab 1 tab daily - PMHx: COPD; Cataracts; cancer, kidney; colon polyps; - PSHx: stent, vascular (BLE's); Hernia repair- Right inguinal; Nephrectomy- Right; - The history from nurses notes was reviewed: and I agree with what is documented. - Social history: Smoking status: Patient uses tobacco products, light tobacco smoker. Patient uses Patient is visually impaired. - Family history: Not pertinent. - : The pt / caregiver states he / she is not on anticoagulants. Home medication list is obtained from the patient, pill bottles. - Hospitalizations: : No recent hospitalization is reported. - Exposure Risk Screening:: None identified. - Immunization history:: All immunizations up-to-date. - Social history:: the patient smokes cigarettes 2ppd the patient drinks alcohol, socially. - Code Status:: Full code. Screenin:10 Screening information is obtained from the patient. Fall risk: At risk due to prior mv5 history of falls, Pt reports he is frequently unsteady, uses walker and wheelchair at home.. Assistance ADL's: Requires assistance with housework, assistance is provided by medication administration, assistance is provided by. Abuse/DV Screen: The patient / caregiver reports he/she is: not in a situation that causes fear, pain or injury. Nutritional screening: No deficits noted. Advance Directives: There is no active DNR order. home support is adequate. Assessment: 00:10 General: See triage assessment. mv5 00:55 General: Appears uncomfortable, Behavior is cooperative. Neurological: Level of mv5 Consciousness is awake, alert, Oriented to person, place, time. Respiratory: Airway is patent Respiratory effort is even, unlabored, Respiratory pattern is regular, symmetrical. Derm: Skin is pink, warm & dry. 01:41 General: Appears comfortable, Behavior is cooperative. Neurological: Level of mv5 Consciousness is awake, alert. Respiratory: Airway is patent Respiratory effort is even, unlabored, Respiratory pattern is regular, symmetrical. Derm: Skin is pink, warm & dry. 02:00 Reassessment: Patient states symptoms have improved. mv5 02:09 General:. mv5 02:30 General: Appears in no apparent distress, Pt assisted to bedside commode.. mv5 Neurological: Level of Consciousness is awake, alert, Oriented to person, place, time. Respiratory: Airway is patent Respiratory effort is even, unlabored, Respiratory pattern is regular, symmetrical. Derm: Skin is pink, warm & dry. 02:46 General: Pt states he is due for routine nebulizer, RT aware, orders received.. mv5 03:07 General: Appears in no apparent distress, RT in to administer neb.. mv5 03:10 General: Appears in no apparent distress, Pt resting with eyes closed, wakes easily to mv5 voice. Pt denies respiratory symptoms following neb but reports increase in right groin pain. MD aware.. 03:40 General: Pt to CT via stretcher.. mv5 04:14 General: Pt awaiting CT report. Given blanket for comfort.. mv5 05:03 General: Appears in no apparent distress. Neurological: Level of Consciousness is mv5 awake, alert. Respiratory: Airway is patent Respiratory effort is even, unlabored, Respiratory pattern is regular, symmetrical. Derm: Skin is pink, warm & dry. 06:13 General: Appears in no apparent distress. General: pt given coffee as requested.. mv5 Neurological: Level of Consciousness is awake, alert, Oriented to person, place, time. Respiratory: Airway is patent Respiratory effort is even, unlabored, Respiratory pattern is regular, symmetrical. Derm: Skin is pink, warm & dry. Vital Signs: 05/30 23:48 BP 149 / 72; Pulse 103; Resp 20; Temp 96.5(O); Pulse Ox 94% on 2 lpm NC; Weight 58.97 baljeet kg (R); Height 5 ft. 5 in. (165.10 cm) (R); Pain 10/; 05/31 00:54 BP 135 / 68 (auto/); mv5 00:55 Pulse 98 MON; Pulse Ox 96% ; mv5 01:24 BP 128 / 61 (auto/); mv5 01:25 Pulse 98 MON; Pulse Ox 94% ; mv5 01:54 BP 150 / 63 (auto/); mv5 01:55 Pulse 98 MON; Pulse Ox 100% ; mv5 02:24 BP 134 / 67 (auto/); mv5 02:25 Pulse 98 MON; Pulse Ox 88% ; mv5 02:45 Pulse 96 MON; Pulse Ox 97% ; mv5 03:24 BP 132 / 69 (auto/); mv5 03:24 Pulse 74 MON; Pulse Ox 82% ; mv5 03:54 BP 124 / 61 (auto/); mv5 03:55 Pulse 94 MON; Pulse Ox 89% ; mv5 04:04 BP 131 / 62 (auto/); mv5 04:05 Pulse 96 MON; Pulse Ox 86% ; mv5 04:24 BP 114 / 56 (auto/); mv5 04:27 Pulse 98 MON; Pulse Ox 83% ; mv5 04:54 BP 120 / 58 (auto/); mv5 04:55 Pulse 92 MON; Pulse Ox 97% ; mv5 05:54 BP 139 / 79 (auto/); mv5 05:55 Pulse 106 MON; Pulse Ox 86% 2 lpm ; mv5 06:17 BP 117 / 57; Pulse 91; Resp 18; Temp 99.1(TE); Pulse Ox 95% 2 lpm ; mv5 05/30 23:48 Body Mass Index 21.63 (58.97 kg, 165.10 cm) baljeet Vitals: 00:04 Log In Time N/A - ambulance arrival. 5 ED Course: 05/30 23:42 Patient visited by Khanh Villalobos PCA. mdr 23:42 Unknown Pcp is Private Physician. mdr 23:42 Ciarra Houston,RN is Primary Nurse. mdr 23:42 Patient moved to Waiting mdr 23:42 Patient moved to 5 mdr 23:48 Patient visited by Melia Patel PCA. baljeet 23:55 Triage Initiated mv5 02/08 00:09 Camron Flores MD is Attending Physician. pc 00:10 The patient / caregiver is instructed regarding the plan of care and ED course. mv5 00:18 Patient visited by Camron Flores MD. pc 00:20 Patient moved to Radiology adriel 00:35 Patient moved to 5 adriel 00:58 BNP Sent. mv5 00:58 Venous Blood Gas (large pea green tube on ice) Sent. mv5 00:58 Lactic Acid (Fields tube on ice) Sent. mv5 00:58 MED Profile Sent. mv5 00:58 CBC with Diff Sent. mv5 00:59 Inserted saline lock: 18 gauge in left forearm and blood collected. The patient mv5 tolerated the procedure well. 01:22 Patient visited by Ciarra Houston RN. mv5 01:54 Patient visited by Ciarra Houston RN. mv5 02:31 Patient visited by Ciarra Houston RN. mv5 03:07 Patient visited by Ciarra Houston RN. mv5 03:25 [facility] Payment Agreement was scanned into [email or web address] and attached to record. hs2 03:40 Patient visited by Ciarra Houston RN. mv5 04:15 Patient visited by Ciarra Houston RN. mv5 05:18 Patient visited by Ciarra Houston RN. mv5 05:27 CT ABD & PELVIS: IV and Oral Contrast Returned. EDMS 06:07 Michael Chavarria MD is Referral Physician. pc 07:00 Discontinued intact, bleeding controlled, pressure dressing applied, No mv5 redness/swelling at site. No procedures done that require assistance. 09:03 Abdomen, Flat\E\Upright,PA Chest Returned. EDMS 13:42 Radiology Report was scanned into [email or web address] and attached to record. gb Administered Medications: 00:58 Drug: morphine 2 mg [morphine 2 mg/mL intravenous cartridge (1 mL)] Route: IVP; Site: mv5 left forearm; 02:08 Follow up: Response: No Adverse Reaction; Pain is decreased mv5 00:58 Drug: Ondansetron 4 mg [ondansetron HCl 2 mg/mL intravenous solution (2 mL)] Route: mv5 IVP; Site: left forearm; 02:09 Follow up: Response: No Adverse Reaction mv5 01:58 Drug: Furosemide 40 mg [furosemide 10 mg/mL injection solution (4 mL)] Route: IVP; mv5 Site: left forearm; 02:37 Follow up: Response: No Adverse Reaction mv5 02:07 Drug: Diatrizoate Meglumine & Sodium 10 ml [diatrizoate meglumine and diat.sodium 66 mv5 %-10 % oral solution (10 mL)] Route: PO; 02:37 Follow up: Response: No Adverse Reaction mv5 02:37 Drug: Diatrizoate Meglumine & Sodium 10 ml [diatrizoate meglumine and diat.sodium 66 mv5 %-10 % oral solution (10 mL)] Route: PO; 03:27 Follow up: Response: No Adverse Reaction mv5 02:55 Drug: Albuterol-Ipratropium 3 ml [ipratropium-albuterol 0.5 mg-3 mg(2.5 mg base)/3 mL lf2 nebulization soln (3 mL)] Route: Inhalation; RT: 02:55 Initial Med Neb Given as ordered Patient was instructed and evaluated on procedure lf2 Patient tolerated procedure well without adverse effect. O2 via nasal cannula \T\ 2L/min. Respiratory: Airway is patent Respiratory effort is even, unlabored, Respiratory pattern is regular symmetrical, Breath sounds are diminished bilaterally. Reports shortness of breath on exertion cough that is productive Denies pain with respiration. Order Results: Lab Order: CBC with Diff; SPEC'M 05/31/16 00:39 Test: WHITE BLOOD COUNT; Value: 9.1; Range: 4.0-10.0; Units: K/mm3; Status: F Test: RED BLOOD COUNT; Value: 4.64; Range: 4.30-6.10; Units: M/mm3; Status: F Test: HEMOGLOBIN; Value: 12.5; Range: 14.0-18.0; Abnormal: Below low normal; Units: g/dl; Status: F Test: HEMATOCRIT; Value: 38.9; Range: 42.0-52.0; Abnormal: Below low normal; Units: %; Status: F Test: MEAN CORPUSCULAR VOLUME; Value: 83.8; Range: 80.0-96.0; Units: fl; Status: F Test: MEAN CORPUSCULAR HEMOGLOBIN; Value: 26.9; Range: 27.0-33.0; Abnormal: Below low normal; Units: pg; Status: F Test: MEAN CORPUSCULAR HGB CONC; Value: 32.1; Range: 32.0-36.5; Units: g/dl; Status: F Test: RED CELL DISTRIBUTION WIDTH; Value: 15.1; Range: 11.5-14.5; Abnormal: Above high normal; Units: %; Status: F Test: PLATELET COUNT, AUTOMATED; Value: 382; Range: 150-450; Units: k/mm3; Status: F Test: NEUTROPHILS %; Value: 81.0; Range: 36.0-66.0; Abnormal: Above high normal; Units: %; Status: F Test: LYMPH %; Value: 10.0; Range: 24.0-44.0; Abnormal: Below low normal; Units: %; Status: F Test: MONO %; Value: 5.2; Range: 0.0-5.0; Abnormal: Above high normal; Units: %; Status: F Test: EOS %; Value: 1.8; Range: 0.0-3.0; Units: %; Status: F Test: BASO %; Value: 0.4; Range: 0.0-1.0; Units: %; Status: F Test: LARGE UNSTAINED CELL %; Value: 1.5; Range: 0.0-4.0; Units: %; Status: F Test: NEUTROPHILS #; Value: 7.4; Range: 1.8-7.7; Units: K/mm3; Status: F Test: LYMPH #; Value: 0.9; Range: 1.5-4.5; Abnormal: Below low normal; Units: K/mm3; Status: F Test: MONO #; Value: 0.5; Range: 0.0-0.8; Units: K/mm3; Status: F Test: EOS #; Value: 0.2; Range: 0.0-0.50; Units: K/mm3; Status: F Test: BASO #; Value: 0.0; Range: 0.0-0.2; Units: K/mm3; Status: F Test: LARGE UNSTAINED CELL #; Value: 0.1; Range: 0.0-0.4; Units: K/mm3; Status: F Lab Order: MED Profile; SPEC'M 02/08/17 00:39 Test: GLUCOSE, FASTING; Value: 74; Range: 83-110; Abnormal: Below low normal; Units: MG/DL; Status: F Test: BLOOD UREA NITROGEN; Value: 17; Range: 7-18; Units: MG/DL; Status: F Test: CREATININE FOR GFR; Value: 1.24; Range: 0.70-1.30; Units: MG/DL; Status: F Test: GLOMERULAR FILTRATION RATE; Value: 60.0; Range: >42; Status: F Test: SODIUM LEVEL; Value: 138; Range: 136-145; Units: MEQ/L; Status: F Test: POTASSIUM SERUM; Value: 4.2; Range: 3.5-5.1; Units: MEQ/L; Status: F Test: CHLORIDE LEVEL; Value: 99; Range: 98-107; Units: MEQ/L; Status: F Test: CARBON DIOXIDE LEVEL; Value: 32; Range: 21-32; Units: MEQ/L; Status: F Test: ANION GAP; Value: 7; Range: 8-16; Abnormal: Below low normal; Units: MEQ/L; Status: F Test: CALCIUM LEVEL; Value: 8.8; Range: 8.8-10.2; Units: MG/DL; Status: F Test Note: ; Units are mL/min/1.73 m2 Chronic Kidney Disease Staging per NKF: Stage I & II GFR >=60 Normal to Mildly Decreased Stage III GFR 30-59 Moderately Decreased Stage IV GFR 15-29 Severely Decreased Stage V GFR <15 Very Little GFR Left ESRD GFR <15 on CUSTOMER ACCOUNT MANAGER Lab Order: Lactic Acid (Fields tube on ice); SPEC05/31/16 00:39 Test: LACTIC ACID SEPSIS PROTOCOL; Value: 1.6; Range: 0.4-2.0; Units: MMOL/L; Status: F Lab Order: Venous Blood Gas (large pea green tube on ice); SPEC05/31/16 00:39 Test: VENOUS PH; Value: 7.338; Range: 7.330-7.430; Units: UNITS; Status: F Test: VENOUS PARTIAL PRESSURE CO2; Value: 60.5; Range: 38.0-50.0; Abnormal: Above high normal; Units: mmHg; Status: F Test: VENOUS PARTIAL PRESSURE O2; Value: 28.8; Range: 30.0-50.0; Abnormal: Below low normal; Units: mmHg; Status: F Test: VENOUS TOTAL CO2; Value: 33.6; Range: 24.0-28.0; Abnormal: Above high normal; Units: MEQ/L; Status: F Test: VENOUS HCO3; Value: 31.8; Range: 23.0-27.0; Abnormal: Above high normal; Units: MEQ/L; Status: F Test: VENOUS BASE EXCESS; Value: 4.3; Range: -2.0-2.0; Abnormal: Above high normal; Status: F Test: VENOUS STANDARD HCO3; Value: 27.3; Units: MEQ/L; Status: F Test: VENOUS O2 SATURATION; Value: 54.5; Range: 60.0-80.0; Abnormal: Below low normal; Units: %; Status: F Lab Order: BNP; SPEC'M 05/31/16 00:39 Test: BRAIN NATRIURETIC PEPTIDE; Value: 1250; Range: <100; Abnormal: Above high normal; Units: PG/ML; Status: F Radiology Order: Abdomen, Flat\E\Upright,PA Chest Test: Abdomen, Flat\E\Upright,PA Chest REASON FOR EXAMINATION: r/o SBO; Abdomen series: Three views.; ; History: Question small bowel obstruction. Abdomen pain.; ; Findings: Supine chest radiograph shows clear well inflated lungs and sharp; pleural angles. Heart is mildly enlarged unchanged from a comparison study; March 03, 2016. There is no evidence of pleural effusion, pulmonary edema or; free air on the supine radiograph. Supine and cross-table lateral supine views; of the abdomen are presented. There is no evidence of free intraperitoneal air.; There is air and stool in a nondistended colon. There are clips in right upper; quadrant and central pelvis. Vascular calcification is noted. There is an; arterial stent in place in the distribution of the left iliac artery. Another; arterial stent is seen at the bottom edge of the field of view in the right; superficial femoral artery. Moderate stool in the right colon.; ; Impression:; ; No evidence of free air or obstruction. Postoperative changes in the abdomen.; Cardiomegaly. Arterial stent left iliac and right superficial femoral arteries.; ; ; Signed by; Jose Lozoya MD 05/31/2016 02:59 P; Radiology Order: CT ABD & PELVIS: IV and Oral Contrast Test: CT ABD & PELVIS: IV and Oral Contrast REASON FOR EXAMINATION: right inguional hernia r/o strangulation; ; CLINICAL HISTORY: Abdominal pain.; TECHNIQUE: Multiple axial, sagittal and coronal CT images were obtained through the abdomen and pelvi; s after administration of oral and intravenous contrast material.; COMMENTS:; Comparison is made to the prior exam performed on 06/07/2015.; The liver is of uniform attenuation without mass or defect. There is no intra or extrahepatic biliary; ductal dilatation. The spleen is normal. The gallbladder contains layering sludge/stones. The pancre; as is of normal contour and attenuation characteristics. There is no evidence of adrenal mass.; Right nephrectomy. There is no evidence of renal or ureteral mass. No renal or ureteral calculi are i; dentified. There is no hydroureter or hydronephrosis.; No evidence for appendicitis. There is no bowel wall thickening. No evidence for small or large tito; l obstruction. There is no evidence of abdominal ascites or lymphadenopathy.; There is no evidence of intrinsic or extrinsic bladder mass. There is no pelvic ascites or lymphadeno; jose eduardo. Right inguinal hernia containing nonincarcerated small bowel is. Moderate large bowel fecal st; asis. Mild prostatomegaly. Prostatic calcifications.; Images of the lung bases show no evidence of pleural or parenchymal mass. There are no pleural effusi; ons. Bilateral basilar atelectatic pulmonary changes more prominent on the right side.; The bony structures are free of lytic or blastic lesions. Multilevel degenerative changes are seen in; volving the thoracolumbar spine. Scattered calcifications are seen involving the aorta and major bran; ches compatible with atherosclerosis.; IMPRESSION:; Right nephrectomy.; Constipation.; Nonincarcerated right inguinal hernia. Clinical evaluation is suggested.; Thank you for your kind referral of this patient.; ; Outcome: 06:07 Discharge ordered by Provider. pc 06:58 Patient left the ED. sls1 07:00 Discharge Assessment: Patient awake, alert and oriented x 3. No cognitive and/or mv5 functional deficits noted. Patient verbalized understanding of disposition instructions. patient administered narcotics - yes. Pt provided with safe discharge. The following High Risk Discharge criteria are identified: None. Discharged to home via ambulance. Condition: stable. Discharge instructions given to patient, Demonstrated understanding of Pt was receptive of discharge instructions/ teaching. CT Study completed. Property sent home with patient. Signatures: Dispatcher [employer] Camron Bailey MD MD pc Bartlett, Floyd fab Barnhardt, Gloria, Reg Reg gb Melia Patel, MORTGAGE LOAN PROCESSING CLERK MORTGAGE LOAN PROCESSING CLERK Matilde Black, RN RN sls1 Khanh Villalobos, MORTGAGE LOAN PROCESSING CLERK MORTGAGE LOAN PROCESSING CLERK Katelin España,RT RT lf2 Clarita Monroe, Reg Reg hs2 Ciarra Houston,RN RN mv5 Corrections: (The following items were deleted from the chart) 00:41 00:04 Allergies: BENZODIAZEPINES; mv5 mv5 Chart Complete MTDD
== END 2016-05-31 06:58 | disposition home or self-care (01) ==
LOC: M ED 23:40
DX: K59.00 Constipation, unspecified (principal); K40.91 Unilateral inguinal hernia, without obstruction or gangrene, recurrent; I50.40 Unspecified combined systolic (congestive) and diastolic (congestive) heart failure; J44.9 Chronic obstructive pulmonary disease, unspecified; H26.9 Unspecified cataract; Z85.528 Personal history of other malignant neoplasm of kidney; Z86.010 Personal history of colon polyps; Z99.81 Dependence on supplemental oxygen; Z79.899 Other long term (current) drug therapy; Z79.52 Long term (current) use of systemic steroids; Z88.8 Allergy status to other drugs, medicaments and biological substances; F17.210 Nicotine dependence, cigarettes, uncomplicated
CPT/HCPCS: 36415; 74022; 74177; 80048; 82803; 83605; 83880; 85025; 94640; 96374; 96375; 99285; J1940; J2405; Q9963; Q9967

== ENCOUNTER 2016-06-06 04:58 | Inpatient (IN) | payer MEDICARE, MEDICAID ==
[2016-06-06] VITALS (9 sets, daily range): BP systolic 113–131; BP diastolic 59–84; O2SAT 93–98
[~2016-06-06] VITALS: Ht 165.1 cm; Wt 45.0 kg
[2016-06-06 05:14] LABS: ABG BASE EXCESS -3.7 (-2.0-2.0); ABG DEVICE NASAL CANN; ABG HCO3 28.3 MEQ/L (22.0-26.0); ABG PARTIAL PRESSURE O2 173.7 mmHg (75.0-100.0); ABG STANDARD HCO3 21.4 MEQ/L (22.0-26.0); ABG TOTAL CO2 31.3 MEQ/L (23.0-31.0)
[2016-06-06 05:17] LABS: ABG PARTIAL PRESSURE CO2 94.9 mmHg (35.0-45.0); ABG pH (ARTERIAL) 7.093 UNITS (7.350-7.450)
[2016-06-06] MEDS ORDERED: dexameTHASONE 20 MG/5 ML VIAL (J1100) As Ordered ONE (05:22)
[2016-06-06 05:27] LABS: BASO # 0.1 K/mm3 (0.0-0.2); BASO % 0.8 % (0.0-1.0); EOS # 0.4 K/mm3 (0.0-0.50); EOS % 2.4 % (0.0-3.0); LARGE UNSTAINED CELL # 0.2 K/mm3 (0.0-0.4); LARGE UNSTAINED CELL % 1.3 % (0.0-4.0); LYMPH # 4.3 K/mm3 (1.5-4.5); LYMPH % 22.5 % (24.0-44.0); MEAN CORPUSCULAR HEMOGLOBIN 26.3 pg (27.0-33.0); MEAN CORPUSCULAR HGB CONC 29.7 g/dl (32.0-36.5); MEAN CORPUSCULAR VOLUME 88.4 fl (80.0-96.0); MONO % 5.6 % (0.0-5.0); NEUTROPHILS # 12.1 K/mm3 (1.8-7.7); NEUTROPHILS % 67.4 % (36.0-66.0); PLATELET COUNT, AUTOMATED 560 k/mm3 (150-450); RED CELL DISTRIBUTION WIDTH 15.2 % (11.5-14.5); WHITE BLOOD COUNT 17.9 K/mm3 (4.0-10.0)
[2016-06-06] MEDS ORDERED: IPRATROPIUM 0.5MG/ALBUTEROL 2.5MG INH SOL UD 3ML (DUONEB)(J7620) As Ordered ONE ×2 (05:37→15:54)
[2016-06-06 05:49] LABS: CALCIUM LEVEL 8.7 MG/DL (8.8-10.2); CREATININE FOR GFR 1.42 MG/DL (0.70-1.30); GLOMERULAR FILTRATION RATE 51.3 (>42); POTASSIUM SERUM 4.9 MEQ/L (3.5-5.1)
[2016-06-06 06:14] LABS: ABG BASE EXCESS 0.2 (-2.0-2.0); ABG DEVICE NASAL CANN; ABG HCO3 28.3 MEQ/L (22.0-26.0); ABG PARTIAL PRESSURE O2 206.5 mmHg (75.0-100.0); ABG STANDARD HCO3 24.7 MEQ/L (22.0-26.0); ABG TOTAL CO2 30.3 MEQ/L (23.0-31.0)
[2016-06-06 06:15] LABS: ABG PARTIAL PRESSURE CO2 63.1 mmHg (35.0-45.0)
[2016-06-06] MEDS: TIOTROPIUM INHALER/CAPSULE (SPIRIVA) INH SCH (08:00)
--- NOTE | 2016-06-06 08:06 | REP ---
Clinical: Shortness of breath. Comparison: 05/31/2016. Findings: Mediastinum and cardiac silhouette are stable and within normal limits for portable technique. Lung mederos demonstrate diffuse chronic interstitial changes and blunting to the diaphragmatic surfaces. Trace right basilar atelectasis cannot be excluded. No definite effusion. No pneumothorax. Skeletal structures intact. Impression: Chronic stable changes. Cannot exclude superimposed basilar atelectasis. Signed by Garret Lynn MD 06/06/2016 07:56 A
[2016-06-06 08:12] LABS: ABG BASE EXCESS 1.3 (-2.0-2.0); ABG DEVICE BIPAP; ABG HCO3 28.4 MEQ/L (22.0-26.0); ABG PARTIAL PRESSURE CO2 56.6 mmHg (35.0-45.0); ABG PARTIAL PRESSURE O2 78.1 mmHg (75.0-100.0); ABG STANDARD HCO3 25.6 MEQ/L (22.0-26.0); ABG TOTAL CO2 30.1 MEQ/L (23.0-31.0); ABG pH (ARTERIAL) 7.318 UNITS (7.350-7.450)
--- NOTE | 2016-06-06 08:18 | ECGEPIP ---
Stationary ECG Study [facility] - ED Test Date: 2016-06-06 Pat Name: JOSEPHINE MEZA Department: Room: - Gender: M School Services Officer: lizbeth : 1940 Requested By: EVANS LUEVANO Order Number: [id number] Reading MD: Jessica Lemon Measurements Intervals [place] Rate: 121 P: 75 NV: 154 QRS: 18 QRSD: 130 T: 105 QT: 321 QTc: 456 Interpretive Statements SINUS TACHYCARDIA MODERATE INTRAVENTRICULAR CONDUCTION DELAY ST DEVIATION AND MODERATE T-WAVE ABNORMALITY, CONSIDER ISCHEMIA CLINICAL CORRELATION Electronically Signed On 06-06-2016 8:17:28 EST by Jessica Lemon
[2016-06-06] MEDS ORDERED: ISOVUE-370 76% 100ML VIAL (Q9967) As Ordered ONE (08:57)
[2016-06-06] MEDS: FERROUS SULFATE 325MG TAB PO SCH (09:00)
[2016-06-06] MEDS: guaiFENesin ER 600 MG TAB PO SCH ×2 (09:00→21:25)
[2016-06-06] MEDS: ASPIRIN 81 MG ENTERIC TAB PO SCH (09:00)
[2016-06-06] MEDS: SENOKOT S TAB PO SCH ×2 (09:00→21:25)
[2016-06-06] MEDS: SYMBICORT 160/4.5MCG INHALER 6GM INH SCH ×2 (09:00→21:08)
[2016-06-06] MEDS: MULTIVITAMINS/MINERALS THERAP 1 TAB PO SCH (09:00)
[2016-06-06] MEDS ORDERED: ONDANSETRON 4MG/2ML VIAL (J2405) IV PRN (09:00)
[2016-06-06] MEDS: OMEPRAZOLE 20 MG CAP PO SCH ×2 (09:00→21:00)
[2016-06-06] MEDS ORDERED: ACETAMINOPHEN TAB 650MG DOSE (2X325MG) PO PRN (09:00)
[2016-06-06] MEDS: PARoxetine 20 MG TAB PO SCH (09:00)
--- NOTE | 2016-06-06 09:42 | REP ---
Clinical: Acute chest pain. Technique: Axial contrast enhanced images from the thoracic inlet to the upper abdomen using 100 ml Isovue 370 intravenous contrast material with coronal and sagittal re-formations. Findings: Satisfactory enhancement of the pulmonary vasculature is achieved and no filling defects are identified to suggest pulmonary embolus. Opacification and mucous plugging to the right lower lobe bronchi is appreciated with trace atelectasis. Diffuse chronic COPD and emphysematous changes are appreciated. No further consolidation, nodule or mass lesion. No pleural effusion/reaction or pneumothorax. Mediastinum demonstrates atherosclerotic changes to the thoracic aorta and coronary arteries without pericardial effusion. Mild cardiomegaly suggested. No obvious adenopathy. Surrounding musculoskeletal structures demonstrate age-related changes without focal osseous abnormality. Impression: 1. No evidence for pulmonary embolus. 2. Mucous plugging to the right lower lobe bronchi with associated mild atelectasis. Signed by Garret Lynn MD 06/06/2016 09:32 A
[2016-06-06] MEDS: AZITHROMYCIN INJ 500 MG, VIAL MATE ADAPTER 1 EACH in D5W 250 ML IV SCH (12:00)
[2016-06-06] MEDS ORDERED: HumaLOG INSULIN (NovoLOG) PER UNIT SC SCH (12:00)
[2016-06-06] MEDS: methylPREDNISolone INJ 125 MG/2 ML VIAL (J2930) IV SCH ×3 (12:00→23:12)
[2016-06-06] MEDS ORDERED: methylPREDNISolone INJ 40 MG/1 ML VIAL (J2920) As Ordered ONE (12:17)
[2016-06-06] MEDS: cefTRIAXone SOD 2 GM in D5W MINI-BAG PLUS 50 ML IV SCH (13:00)
[2016-06-06] MEDS ORDERED: DEXTROSE 50% 50 ML SYRINGE IV PRN (13:30)
[2016-06-06] MEDS ORDERED: GLUCOSE 4 GM CHEW TABLET PO PRN (13:30)
[2016-06-06] MEDS ORDERED: GLUCAGON FOR INJ 1 MG VIAL (J1610) SC PRN (13:30)
[2016-06-06] MEDS: HEPARIN SOD (PORCINE) 5000 UNITS/ML VIAL SC SCH ×2 (14:00→21:24)
[2016-06-06 14:09] LABS: ABG BASE EXCESS 4.5 (-2.0-2.0); ABG HCO3 29.9 MEQ/L (22.0-26.0); ABG PARTIAL PRESSURE CO2 48.4 mmHg (35.0-45.0); ABG STANDARD HCO3 28.5 MEQ/L (22.0-26.0); ABG TOTAL CO2 31.4 MEQ/L (23.0-31.0); ABG pH (ARTERIAL) 7.409 UNITS (7.350-7.450)
--- NOTE | 2016-06-06 15:41 | HPE ---
DATE OF ADMISSION: 06/06/2016 PRIMARY CARE PROVIDER: Dr. Michael Chavarria CHIEF COMPLAINT: Shortness of breath. HISTORY OF PRESENT ILLNESS: This is a 76-year-old male patient with underlying medical history of renal cancer, chronic obstructive pulmonary disease (COPD), chronic smoker, villous adenoma with polyp removal, chronic anxiety, chronic kidney disease (CKD), history of cerebrovascular accident (CVA), history of right renal cell carcinoma with right nephrectomy, poor compliance, dyslipidemia, coronary artery disease with coronary artery bypass graft (CABG). Patient presented with acute worsening shortness of breath over the past 1-2 days. Patient is a very poor historian and lives at home alone. Previously admitted in February 2016. Patient left against medical advice. Patient also reported significant cough recently, productive of white sputum, on oxygen at home, 2 liters. Denies any chest pain, pressure, or discomfort. Reported chills but no fevers. Patient denies any sick contacts, recent travel. Reported shortness of breath and wheezing. Denies any change in urination. Denies nasal congestion. In the emergency room, patient was found to have hypercarbic with respiratory acidosis. Subsequently placed on bilevel positive airway pressure (BiPAP) with improvement of arterial blood gas (ABG) but remained relatively lethargic. Very poor historian and also poor insight. ALLERGIES: BENZODIAZEPINE, GABAPENTIN. PAST MEDICAL HISTORY: 1. Coronary artery disease with history of CABG. 2. COPD. 3. Chronic anxiety. 4. Villous adenoma with polyp resection. 5. CKD. 6. CVA. 7. Renal cell carcinoma with right nephrectomy. 8. Nicotine abuse. 9. Noncompliance. 10. Dyslipidemia. 11. Gastroesophageal reflux disease (GERD). PAST SURGICAL HISTORY: 1. CABG and also stents. 2. Right nephrectomy due to renal cell carcinoma. 3. Polyp resection due to villous carcinoma. 4. Hernia repair. SOCIAL HISTORY: Smokes half a pack per day to one pack per day for 60+ years. Denies alcohol drinking. REVIEW OF SYSTEMS: Limited secondary to the patient's mental status but negative except for those mentioned in the history of present illness (HPI). FAMILY HISTORY: Noncontributory. HOME MEDICATIONS: - acetaminophen 650 mg by mouth every 4 hours as needed - Ventolin inhalers every 4 hours as needed - DuoNeb inhalation every 4 hours as needed - Xanax 0.25 mg by mouth three times a day as needed - Lipitor 40 mg by mouth nightly - Symbicort 160/4.5 mcg inhalation twice a day - senna- S 50/8.6 tablet one tablet by mouth twice a day - ferrous sulfate 325 mg by mouth daily - multivitamin one tablet by mouth daily - omeprazole 40 mg by mouth twice a day - Paxil 20 mg by mouth daily - prednisone 10 mg by mouth daily - theophylline 400 mg by mouth twice a day - tramadol 50 mg one tablet by mouth every 6 hours as needed PHYSICAL EXAMINATION: VITAL SIGNS: Blood pressure 117/58, pulse 93, respirations 22, temperature 98.6. Pulse oximetry 99% on 30% FiO2 with BiPAP 16/6, backup rate of 10. GENERAL: Patient alert and oriented times three with mild dyspnea and lethargy. Arousable to verbal stimuli. HEENT: Normocephalic, atraumatic. PULMONARY: Bilateral wheeze. Poor air flow. Distant respiratory sounds. CARDIAC: Regular, S1, S2. ABDOMEN: Soft. Hypoactive bowel sounds. Nontender. EXTREMITIES: No edema bilateral lower extremities. EKG: Sinus tachycardia at 121. ST segment elevation, V1 through V4, which was also present on previous EKGs. ABG initially 7.09, 94.9, 173.7, 28.3. Currently, 7.32, 56.6, 78.1, 28.4. WBC 17.9, hemoglobin and hematocrit 12/40.3, platelets 560. Chemistry: Sodium 140, potassium 4.9, chloride 104, bicarbonate 32, BUN 20, creatinine 1.4. Troponin 0.15, repeat 0.67. C-reactive protein 1.24. CT angiogram negative for pulmonary embolism (PE). ASSESSMENT AND PLAN: This is a 76-year-old male patient with underlying medical history of chronic obstructive pulmonary disease, poor compliance, villous adenoma of the colon, coronary artery disease with coronary artery bypass graft, chronic anxiety, chronic kidney disease, cerebrovascular accident, renal cell carcinoma with right nephrectomy, smoking, dyslipidemia, gastroesophageal reflux disease, admitted for hypercarbic respiratory failure secondary to acute COPD exacerbation. 1. Hypercarbic respiratory failure secondary to COPD exacerbation. Possibly due to mucus plugging versus community acquired bacterial pneumonia. Followup respiratory panel, sputum culture, blood culture. Followup C-reactive protein. Rocephin and Zithromax. Pulmonary consulted. Currently, patient on BiPAP. Repeat arterial blood gas (ABG). Nothing by mouth for now. Will place the patient on diet once patient is off BiPAP. Continue Solu-Medrol, DuoNeb, Symbicort, Spiriva. Pulmonary consultation. CT angiogram negative for pulmonary embolism (PE). 2. Coronary artery disease with elevated cardiac enzymes. Cardiology, Dr. Pak, consulted. Patient sees Dr. Zhong as outpatient. Repeat cardiac enzymes. Aspirin added. Continue statin. Telemetry monitoring. Repeat EKGs. Patient does not have any chest pain. Possibly demand ischemia due to tachycardia and respiratory distress. 3. Hyperglycemia. Insulin as per protocol. Followup A1c. 4. Smoking counseling provided. 5. CKD. Followup BUN and creatinine. Continue to monitor. 6. Anxiety. Continue home medication. 7. Depression. Continue home medication. 8. GERD. Continue proton pump inhibitor (PPI). 9. History of CVA. Continue aspirin and statin. 10. Poor compliance. 11. Dyslipidemia. Continue statin. 12. Deep venous thrombosis (DVT) prophylaxis. Heparin subcutaneous. 13. Hyperglycemia, possibly secondary to steroids. We will followup A1c. Fingersticks every 6 hours with insulin as per protocol. 14. Chronic kidney disease. Monitor BUN and creatinine. We will hold off intravenous (IV) fluids for now. DISPOSITION PLANNING: Pending clinical improvement. Poor compliance. Edited: capo 06/06/2016 [id number]
[2016-06-06] MEDS: IPRATROPIUM 0.5MG/ALBUTEROL 2.5MG INH SOL UD 3ML (DUONEB)(J7620) NEB SCH ×2 (15:57→20:00)
[2016-06-06] MEDS: HumaLOG INSULIN (NovoLOG) PER UNIT SC SCH ×2 (17:30→21:00)
[2016-06-06] MEDS ORDERED: HumaLOG INSULIN (NovoLOG) PER UNIT As Ordered ONE (17:41)
[2016-06-06 18:25] LABS: ABG BASE EXCESS 0.5 (-2.0-2.0); ABG HCO3 25.3 MEQ/L (22.0-26.0); ABG PARTIAL PRESSURE CO2 41.3 mmHg (35.0-45.0); ABG PARTIAL PRESSURE O2 57.8 mmHg (75.0-100.0); ABG STANDARD HCO3 24.8 MEQ/L (22.0-26.0); ABG TOTAL CO2 26.6 MEQ/L (23.0-31.0); ABG pH (ARTERIAL) 7.405 UNITS (7.350-7.450)
--- NOTE | 2016-06-06 20:20 | EDDOCDS ---
Nurse's Notes [facility] Name: Josephine Silvestre Age: 76 yrs Sex: Male : 1940 Arrival Date: 06/06/2016 Time: 04:58 Bed 2 Private MD: Diagnosis: Acute and chronic respiratory failure;Chronic obstructive pulmonary disease with acute lower respiratory infection Presentation: 06/06 05:01 Presenting complaint: EMS states: Patient called EMS for increased SOB, upon EMS mgs arrival patient was in tripod position in his wheelchair. Patient received albuterol Atrovent and regular albuterol nebulizer treatment en route as well as 125 mg Solu-Medrol. Patients SP 02 was 72% upon EMS arrival, currently in 90's. FSBS 226 mg/dl. Adult Sepsis Screening: The patient does not have new or worsening altered mentation. Patient has a respiratory rate of greater than or equal to 22 (1 point). Systolic blood pressure is greater than 100. Patient has a qSOFA score of 1- Negative Sepsis Screen. Suicide/Homicide risk assessment- the patient denies having any suicidal and/or homicidal ideations and does not present with any other emotional, behavioral or mental health complaints. Status: Patient is not a tax services specialist or dependent. Transition of care: patient was not received from another setting of care. 05:01 Acuity: FLIP Level 2 mgs 05:01 Method Of Arrival: Ambulance mgs Triage Assessment: 05:01 General: Appears uncomfortable, Behavior is cooperative. Pain: Denies pain. The patient mgs is triaged at the bedside. See Assessment in Nurses Notes section of ED record. Neurological: Level of Consciousness is awake, alert. Cardiovascular: Capillary refill < 3 seconds Heart tones S1 S2 present Rhythm is sinus tachycardia No ectopy. Respiratory: Onset: The symptoms/episode began/occurred this morning, Airway is patent Respiratory effort is labored, accessory muscle use Respiratory pattern is tachypnea Breath sounds with rhonchi bilaterally. Breath sounds are diminished bilaterally. Breath sounds with wheezes expiratory bilaterally. 05:08 Derm: Skin is pale. mgs Historical: - Allergies: BENZODIAZEPINESreported reaction to unknown benzodiazepine; GABAPENTIN; - Home Meds: 1. DOK 100 mg oral tab 1 tab 2 times per day 2. atorvastatin 40 mg oral tab once daily 3. prednisone 10 mg Oral tab once daily 4. Paxil 20 mg Oral tab 1 tab once daily 5. Xanax 0.25 mg Oral tab 1 tab 3 times per day for Anxiety 6. omeprazole 20 mg Oral cpDR 2 caps 2 times per day 7. theophylline 400 mg Oral TbER 1 tab once daily 8. Combivent Inhl Unknown every 6 hours 9. symbicort 160-4.5 twice a day 10. Oxygen 2.0-2.5 L continuous - PMHx: cancer, kidney; Cataracts; colon polyps; COPD; - Social history: Smoking status: Patient uses tobacco products, heavy tobacco smoker. No barriers to communication noted, The patient speaks fluent Italian. - Family history: Not pertinent. - : The pt / caregiver states he / she is not on anticoagulants. Home medication list is obtained from [employer] import data, pill bottles. - Exposure Risk Screening:: None identified. Screenin:11 Screening information is obtained from the patient. Fall risk: At risk due to age. mgs Assistance ADL's: requires no assistance with activities of daily living. Abuse/DV Screen: The patient / caregiver reports he/she is: not in a situation that causes fear, pain or injury. Nutritional screening: No deficits noted. home support is adequate. 15:17 Advance Directives: There is. dsf Assessment: 05:12 General: Please see triage assessment. mgs 05:42 General: Appears uncomfortable. Neurological: Level of Consciousness is awake. mgs Cardiovascular: Capillary refill < 3 seconds Rhythm is sinus tachycardia No ectopy. Respiratory: Airway is patent Respiratory effort is labored, Respiratory pattern is tachypnea. Derm: Skin is pale. 05:57 General: After speaking with Dr Luevano the patient stated that while he would want to mgs have CPR performed if it were needed he would not want to be intubated, Dr Luevano aware. 06:00 General: Appears uncomfortable, Behavior is. Neurological: Level of Consciousness is mgs awake, alert, Oriented to person, place, time. Cardiovascular: Capillary refill < 3 seconds. Respiratory: Airway is patent Respiratory effort is even, labored, Respiratory pattern is tachypnea. 06:42 General: Appears uncomfortable, Behavior is. General: Appears to be sleeping. Behavior mgs is. Cardiovascular: Capillary refill < 3 seconds. Respiratory: Airway is patent Respiratory effort is even, labored, Respiratory pattern is tachypnea. 07:09 General: Appears in no apparent distress, comfortable, Behavior is drowsy. Pain: Denies bcj pain. Cardiovascular: Rhythm is sinus rhythm. Respiratory: Airway is patent Respiratory effort is even, labored, Respiratory pattern is tachypnea. Derm: Skin is dusky, pink. 07:09 Respiratory: Breath sounds are diminished bilaterally. bcj 08:51 General: Appears in no apparent distress, comfortable, Behavior is cooperative. Pain: bcj Denies pain. Cardiovascular: Rhythm is sinus rhythm. Derm: Skin is dusky, pink. 09:34 General: Appears in no apparent distress, comfortable, Behavior is cooperative. Pain: bcj Denies pain. Neurological: Level of Consciousness is awake, alert, Oriented to person, place, Speech is normal. Respiratory: Airway is patent Respiratory effort is even, labored, Respiratory pattern is regular. Derm: Skin is dusky, pink. 12:43 General: Appears in no apparent distress, comfortable, Behavior is cooperative. Pain: bcj Denies pain. Cardiovascular: Rhythm is sinus rhythm. Respiratory: Airway is patent Respiratory effort is even, labored, Respiratory pattern is regular. Derm: Skin is dusky, pink. 14:02 General: Appears in no apparent distress, comfortable, Behavior is cooperative. bcj Cardiovascular: Rhythm is sinus rhythm. 18:12 General: Appears in no apparent distress, comfortable, Behavior is cooperative. Pain: dsf Denies pain. Cardiovascular: Rhythm is sinus rhythm. Respiratory: Airway is patent. Derm: Skin is dusky, pink. 19:30 General: Pt sitting on side of bed. No apparent distress. Aware of plan for ICU ld5 admission. Denies any needs at this time. Will continue to monitor. Pain: Denies pain. Neurological: Level of Consciousness is awake, alert. Respiratory: Airway is patent Respiratory effort is even. GI: Abdomen is non- distended Bowel sounds present X 4 quads. Denies nausea. 19:58 General: Appears in no apparent distress, Behavior is cooperative. Pain: Denies pain. ld5 Neurological: Level of Consciousness is awake, alert. Respiratory: Airway is patent. Vital Signs: 05:04 BP 183 / 92 LA Sitting (auto/reg); Pulse 120; Resp 28 S; Temp 97.0(TE); Pulse Ox 97% ; cln 05:04 BP 183 / 92 (auto/); mgs 05:05 Pulse Ox 97% ; mgs 05:15 BP 186 / 116 (auto/); mgs 05:15 Pulse Ox 96% ; mgs 05:16 Pulse 125 MON; Pulse Ox 95% ; mgs 05:17 BP 177 / 86 (auto/); mgs 05:30 Pulse Ox 96% on 40% BiPAP; mgs 05:33 BP 93 / 65 (auto/); mgs 05:33 Pulse 126 MON; Resp 33; Pulse Ox 98% on 40% BiPAP; mgs 05:39 BP 131 / 93 (auto/); mgs 05:39 Pulse 122 MON; Resp 32; Pulse Ox 98% on 40% BiPAP; mgs 05:47 BP 135 / 72 (auto/); mgs 05:47 Pulse 113 MON; Pulse Ox 99% on 40% BiPAP; mgs 06:02 BP 106 / 58 (auto/); mgs 06:02 Pulse 106 MON; Pulse Ox 99% on 40% BiPAP; mgs 06:30 Temp 98.6(TE); cln 06:32 BP 117 / 58 (auto/); mgs 06:32 Pulse 93 MON; Resp 22; Pulse Ox 99% on 30% BiPAP; mgs 07:17 BP 115 / 59 (auto/); bcj 07:17 Pulse 91 MON; Pulse Ox 93% ; bcj 07:32 BP 111 / 57 (auto/); bcj 07:32 Pulse 90 MON; Pulse Ox 93% ; bcj 07:37 Weight 48.5 kg (M); bcj 08:02 BP 117 / 59 (auto/); bcj 08:02 Pulse 87 MON; bcj 08:17 BP 136 / 68 (auto/); bcj 08:17 Pulse 94 MON; bcj 08:32 BP 123 / 61 (auto/); bcj 08:32 Pulse 92 MON; Pulse Ox 93% ; bcj 08:47 BP 122 / 66 (auto/); bcj 08:47 Pulse 88 MON; Pulse Ox 99% ; bcj 09:02 BP 110 / 55 (auto/); bcj 09:02 Pulse 83 MON; Pulse Ox 97% ; bcj 09:17 BP 112 / 60 (auto/); bcj 09:17 Pulse 89 MON; Pulse Ox 95% ; bcj 09:32 BP 116 / 66 (auto/); bcj 09:32 Pulse 88 MON; bcj 09:47 BP 119 / 57 (auto/); bcj 09:47 Pulse 88 MON; bcj 10:02 BP 129 / 62 (auto/); bcj 10:02 Pulse 91 MON; Pulse Ox 92% ; bcj 10:17 BP 112 / 59 (auto/); bcj 10:17 Pulse 84 MON; Pulse Ox 97% ; bcj 10:32 BP 118 / 62 (auto/); bcj 10:32 Pulse 82 MON; Pulse Ox 95% ; bcj 10:47 BP 120 / 84 (auto/); bcj 10:47 Pulse 83 MON; bcj 11:02 BP 140 / 68 (auto/); bcj 11:02 Pulse 84 MON; bcj 11:17 BP 127 / 62 (auto/); bcj 11:17 Pulse 83 MON; bcj 11:32 BP 115 / 60 (auto/); bcj 11:32 Pulse 81 MON; bcj 11:47 BP 110 / 56 (auto/); bcj 11:47 Pulse 79 MON; bcj 12:02 BP 115 / 55 (auto/); bcj 12:02 Pulse 79 MON; bcj 12:17 BP 136 / 84 (auto/); bcj 12:17 Pulse 86 MON; bcj 12:32 BP 131 / 76 (auto/); bcj 12:32 Pulse 95 MON; bcj 12:47 BP 133 / 68 (auto/); bcj 12:47 Pulse 83 MON; bcj 13:02 BP 131 / 70 (auto/); bcj 13:02 Pulse 84 MON; bcj 13:17 BP 118 / 76 (auto/); bcj 13:17 Pulse 83 MON; Pulse Ox 99% ; bcj 13:32 BP 119 / 67 (auto/); bcj 13:32 Pulse 80 MON; Pulse Ox 98% ; bcj 13:47 BP 108 / 63 (auto/); bcj 13:47 Pulse 77 MON; Pulse Ox 99% ; bcj 15:17 BP 155 / 74 (auto/); dsf 15:17 Pulse 76 MON; dsf 15:32 BP 157 / 75 (auto/); dsf 15:32 Pulse 78 MON; dsf 15:47 BP 129 / 67 (auto/); dsf 15:47 Pulse 81 MON; dsf 16:02 BP 121 / 66 (auto/); dsf 16:02 Pulse 78 MON; dsf 16:17 BP 140 / 72 (auto/); dsf 16:17 Pulse 82 MON; dsf 16:32 BP 129 / 70 (auto/); dsf 16:32 Pulse 85 MON; dsf 16:47 BP 128 / 74 (auto/); dsf 16:47 Pulse 84 MON; dsf 17:02 BP 139 / 81 (auto/); dsf 17:02 Pulse 96 MON; Pulse Ox 75% ; dsf 17:17 BP 136 / 74 (auto/); dsf 17:17 Pulse Ox 99% ; dsf 17:47 BP 121 / 62 (auto/); dsf 17:47 Pulse 87 MON; dsf 18:02 BP 106 / 56 (auto/); dsf 18:02 Pulse 85 MON; Pulse Ox 96% ; dsf 19:58 BP 109 / 57; Pulse 95; Resp 22; Temp 98.1; Pulse Ox 96% ; ld5 Vitals: 07:09 Refer to monitor trend for complete vital signs trends. [facility] 07:37 Log In Time N/A - ambulance arrival. [facility] ED Course: 05:00 Patient visited by Sabrina Rose, Light Bulb Tester. ml3 05:00 Patient moved to Waiting ml3 05:00 Patient moved to 2 ml3 05:01 Florentin Yang RN is Primary Nurse. mgs 05:06 Patient visited by Elly Colmenares PCA. cln 05:06 Patient visited by Elly Colmenares PCA. cln 05:06 Triage Initiated mgs 05:06 Pt greeted and oriented to ED. Patient advised of names of staff involved in care, cln location of call jasmine, wait times and NPO status. Patient has correct armband on for positive identification. Placed in gown. Bed in low position. Call light in reach. Side rails up X 1. 05:12 Maintain field IV. Dressing intact. Good blood return noted. Site clean & dry. Gauge & mgs site: 20 gauge in left AC. 05:13 Patient visited by Florentin Yang RN. mgs 05:13 Evans Luevano DO is Attending Physician. cs11 05:13 Patient visited by Evans Luevano DO. cs11 05:15 -Arterial Blood Gas Sent. jh6 05:18 -Blood Culture Sent. mgs 05:18 Basic Metabolic Profile Sent. mgs 05:18 CBC with Diff Sent. mgs 05:18 Cardiac Injury Profile Sent. mgs 05:18 Troponin Sent. mgs 05:24 Notified attending ED physician of Critical lab value. ph= 7.093 and PC02 94.[address] Luevano. 05:29 Theophylline Level Sent. mgs 05:30 BIPAP: Inspiratory Pressure: 60, Expiratory Pressure: 6, Backup Rate: 10, FiO2: 40%, mgs Full face fask. 05:44 Patient visited by Florentin Yang,SUPRIYA. mgs 06:01 Patient visited by Florentin Yang RN. mgs 06:05 -Arterial Blood Gas Sent. jh6 06:24 [facility], [facility] Payment Agreement was scanned into [employer] and attached to record. hs2 06:30 Patient visited by Elly Colmenares PCA. cln 06:43 Patient visited by Florentin Yang,SUPRIYA. mgs 07:09 No apparent distress. Resting quietly. Awaiting bed assignment. bcj 07:09 The patient / caregiver is instructed regarding the plan of care and ED course. Cardiac bcj monitor on. Pulse ox on. NIBP on. 07:09 IV is intact. Labs drawn. (by ED staff). Sent per order to lab. BIPAP: Inspiratory bcj Pressure: 16, Expiratory Pressure: 6, Backup Rate: 10, FiO2: 30%, Full face fask. 07:12 Patient visited by Sarabjit Heard RN. bcj 07:27 Attending Physician role handed off by Evans Luevano DO pc 07:27 Camron Flores MD is Attending Physician. pc 07:27 Rosy Garcia is Hospitalizing Provider. pc 07:38 Patient visited by Sarabjit Heard RN. bcj 08:07 Chest, 1 View Returned. EDMS 08:08 ARTERIAL BLOOD GAS Sent. pc 08:40 EKG-ADULT Returned. EDMS 08:51 Appears to be sleeping. Awaiting bed assignment. bcj 08:51 IV is intact. bcj 08:53 Patient visited by Sarabjit Heard RN. bcj 09:34 No apparent distress. Resting quietly. Awaiting bed assignment. bcj 09:38 Patient visited by Sarabjit Heard, RN. bcj 09:56 CT ANGIO CHEST Returned. EDMS 12:43 No apparent distress. Resting quietly. Awaiting bed assignment. bcj 12:43 IV is intact. O2 via nasal cannula \T\ 4L/min. bcj 12:45 Patient visited by Sarabjit Heard, RN. bcj 14:05 Patient visited by Sarabjit Heard, RN. bcj 15:03 Patient moved to Admit Hold pc 15:17 IV. dsf 18:05 RESPIRATORY PANEL Sent. bcj 18:47 Patient visited by Sammi Wallace,SUPRIYA. dsf 19:22 Patient moved to 2 apr 19:59 Patient visited by Gianna Moyer,SUPRIYA. ld5 19:59 No procedures done that require assistance. ld5 Administered Medications: 05:28 Drug: Dexamethasone 12 mg [dexamethasone 4 mg/mL injection solution] Route: IV; Rate: mgs bolus; Site: left forearm; 05:37 Drug: Albuterol-Ipratropium 1 neb [ipratropium-albuterol 0.5 mg-3 mg(2.5 mg base)/3 mL jh6 nebulization soln (1 neb)] Route: Nebulizer; 05:57 Drug: Albuterol-Ipratropium 1 neb [ipratropium-albuterol 0.5 mg-3 mg(2.5 mg base)/3 mL jh6 nebulization soln (1 neb)] Route: Nebulizer; 06:18 Drug: Albuterol-Ipratropium 1 neb [ipratropium-albuterol 0.5 mg-3 mg(2.5 mg base)/3 mL jh6 nebulization soln (1 neb)] Route: Nebulizer; RT: 05:15 ABG's drawn from right radial artery pressure held for 5 minutes no bleeding noted jh6 pressure bandage applied specimen sent pt. tolerated well. 05:15 O2 via nasal cannula \T\ 4L/min. jh6 05:15 Respiratory: Airway is patent Respiratory effort is labored, Use of accessory muscles jh6 noted. Respiratory pattern is tachypnea Breath sounds are diminished in right upper lobe, left upper lobe, right middle lobe, left lower lobe, right lower lobe, left posterior upper lobe, right posterior upper lobe, left posterior lower lobe, right posterior middle lobe and right posterior lower lobe Breath sounds with wheezes in right upper lobe, left upper lobe, right middle lobe, left posterior upper lobe, right posterior upper lobe and right posterior middle lobe. 05:31 BIPAP: Inspiratory Pressure: 16, Expiratory Pressure: 6, Backup Rate: 10, FiO2: 40%, jh6 Full face fask. 05:38 Initial Med Neb Given as ordered Patient was instructed and evaluated on procedure jh6 Patient tolerated procedure well without adverse effect. Respiratory: Airway is patent Respiratory effort is labored, Use of accessory muscles noted. w/ retractions, Respiratory pattern is tachypnea Breath sounds are diminished in right upper lobe, left upper lobe, right middle lobe, left lower lobe and right lower lobe Breath sounds with wheezes in right upper lobe, left upper lobe, right middle lobe, left lower lobe and right lower lobe at expiration. 05:45 Respiratory: Breath sounds are coarse in right upper lobe, left upper lobe, right jh6 middle lobe, left lower lobe and right lower lobe Breath sounds are diminished in right upper lobe, left upper lobe, right middle lobe, left lower lobe and right lower lobe. 05:57 Subsequent Med Neb Given as ordered Patient was reinforced on procedure Patient jh6 tolerated procedure well without adverse effect. Respiratory: Airway is patent Respiratory effort is even, labored, Respiratory pattern is regular Breath sounds are coarse in right upper lobe, right middle lobe and right lower lobe Breath sounds are diminished in right upper lobe, left upper lobe, right middle lobe, left lower lobe and right lower lobe. 06:05 ABG's drawn from left radial artery pressure held for 5 minutes no bleeding noted jh6 pressure bandage applied specimen sent pt. tolerated well. 06:18 Subsequent Med Neb Given as ordered Patient was reinforced on procedure Patient jh6 tolerated procedure well without adverse effect. Respiratory: Airway is patent Respiratory effort is even, labored, Respiratory pattern is regular Breath sounds are coarse in right upper lobe, left upper lobe, right middle lobe, left lower lobe and right lower lobe Breath sounds are diminished in right upper lobe, left upper lobe, right middle lobe, left lower lobe and right lower lobe. 06:30 Respiratory: Airway is patent Respiratory effort is even, labored, Respiratory pattern jh6 is regular Breath sounds are coarse in right upper lobe, left upper lobe, right middle lobe, left lower lobe and right lower lobe Breath sounds are diminished in right upper lobe, left upper lobe, right middle lobe, left lower lobe and right lower lobe. 07:44 ABG's drawn from right radial artery pressure held for 5 minutes no bleeding noted kt1 pressure bandage applied specimen sent pt. tolerated well. 14:00 ABG's drawn from left radial artery allens test done and positive pressure held for 5 ac1 minutes no bleeding noted pressure bandage applied specimen sent pt. tolerated well. 18:13 ABG's drawn from right brachial artery pressure held for 5 minutes no bleeding noted ac1 pressure bandage applied specimen sent pt. tolerated well. Order Results: Lab Order: -Arterial Blood Gas; SPEC'M 06/06/16 05:10 Test: ABG pH (ARTERIAL); Value: 7.093; Range: 7.350-7.450; Abnormal: Critical Low; Units: UNITS; Status: F Test: ABG PARTIAL PRESSURE CO2; Value: 94.9; Range: 35.0-45.0; Abnormal: Above upper panic limits; Units: mmHg; Status: F Test: ABG PARTIAL PRESSURE O2; Value: 173.7; Range: 75.0-100.0; Abnormal: Above high normal; Units: mmHg; Status: F Test: ABG TOTAL CO2; Value: 31.3; Range: 23.0-31.0; Abnormal: Above high normal; Units: MEQ/L; Status: F Test: ABG HCO3; Value: 28.3; Range: 22.0-26.0; Abnormal: Above high normal; Units: MEQ/L; Status: F Test: ABG BASE EXCESS; Value: -3.7; Range: -2.0-2.0; Abnormal: Below low normal; Status: F Test: ABG STANDARD HCO3; Value: 21.4; Range: 22.0-26.0; Abnormal: Below low normal; Units: MEQ/L; Status: F Test: ABG O2 SATURATION; Value: 98.7; Range: 95.0-99.0; Units: %; Status: F Test: ABG DEVICE; Value: NASAL DREW; Status: F Lab Order: Basic Metabolic Profile; SPEC'M 06/06/16 05:17 Test: GLUCOSE, FASTING; Value: 239; Range: 83-110; Abnormal: Above high normal; Units: MG/DL; Status: F Test: BLOOD UREA NITROGEN; Value: 20; Range: 7-18; Abnormal: Above high normal; Units: MG/DL; Status: F Test: CREATININE FOR GFR; Value: 1.42; Range: 0.70-1.30; Abnormal: Above high normal; Units: MG/DL; Status: F Test: GLOMERULAR FILTRATION RATE; Value: 51.3; Range: >42; Status: F Test: SODIUM LEVEL; Value: 140; Range: 136-145; Units: MEQ/L; Status: F Test: POTASSIUM SERUM; Value: 4.9; Range: 3.5-5.1; Units: MEQ/L; Status: F Test: CHLORIDE LEVEL; Value: 104; Range: 98-107; Units: MEQ/L; Status: F Test: CARBON DIOXIDE LEVEL; Value: 32; Range: 21-32; Units: MEQ/L; Status: F Test: ANION GAP; Value: 4; Range: 8-16; Abnormal: Below low normal; Units: MEQ/L; Status: F Test: CALCIUM LEVEL; Value: 8.7; Range: 8.8-10.2; Abnormal: Below low normal; Units: MG/DL; Status: F Test Note: ; Units are mL/min/1.73 m2 Chronic Kidney Disease Staging per NKF: Stage I & II GFR >=60 Normal to Mildly Decreased Stage III GFR 30-59 Moderately Decreased Stage IV GFR 15-29 Severely Decreased Stage V GFR <15 Very Little GFR Left ESRD GFR <15 on OIL [employer] Lab Order: CBC with Diff; SPEC'M 06/06/16 05:17 Test: WHITE BLOOD COUNT; Value: 17.9; Range: 4.0-10.0; Abnormal: Above high normal; Units: K/mm3; Status: F Test: RED BLOOD COUNT; Value: 4.56; Range: 4.30-6.10; Units: M/mm3; Status: F Test: HEMOGLOBIN; Value: 12.0; Range: 14.0-18.0; Abnormal: Below low normal; Units: g/dl; Status: F Test: HEMATOCRIT; Value: 40.3; Range: 42.0-52.0; Abnormal: Below low normal; Units: %; Status: F Test: MEAN CORPUSCULAR VOLUME; Value: 88.4; Range: 80.0-96.0; Units: fl; Status: F Test: MEAN CORPUSCULAR HEMOGLOBIN; Value: 26.3; Range: 27.0-33.0; Abnormal: Below low normal; Units: pg; Status: F Test: MEAN CORPUSCULAR HGB CONC; Value: 29.7; Range: 32.0-36.5; Abnormal: Below low normal; Units: g/dl; Status: F Test: RED CELL DISTRIBUTION WIDTH; Value: 15.2; Range: 11.5-14.5; Abnormal: Above high normal; Units: %; Status: F Test: PLATELET COUNT, AUTOMATED; Value: 560; Range: 150-450; Abnormal: Above high normal; Units: k/mm3; Status: F Test: NEUTROPHILS %; Value: 67.4; Range: 36.0-66.0; Abnormal: Above high normal; Units: %; Status: F Test: LYMPH %; Value: 22.5; Range: 24.0-44.0; Abnormal: Below low normal; Units: %; Status: F Test: MONO %; Value: 5.6; Range: 0.0-5.0; Abnormal: Above high normal; Units: %; Status: F Test: EOS %; Value: 2.4; Range: 0.0-3.0; Units: %; Status: F Test: BASO %; Value: 0.8; Range: 0.0-1.0; Units: %; Status: F Test: LARGE UNSTAINED CELL %; Value: 1.3; Range: 0.0-4.0; Units: %; Status: F Test: NEUTROPHILS #; Value: 12.1; Range: 1.8-7.7; Abnormal: Above high normal; Units: K/mm3; Status: F Test: LYMPH #; Value: 4.3; Range: 1.5-4.5; Units: K/mm3; Status: F Test: MONO #; Value: 1.0; Range: 0.0-0.8; Abnormal: Above high normal; Units: K/mm3; Status: F Test: EOS #; Value: 0.4; Range: 0.0-0.50; Units: K/mm3; Status: F Test: BASO #; Value: 0.1; Range: 0.0-0.2; Units: K/mm3; Status: F Test: LARGE UNSTAINED CELL #; Value: 0.2; Range: 0.0-0.4; Units: K/mm3; Status: F Lab Order: Cardiac Injury Profile; 06/06/16 05:17 Test: CPK CREATINE PHOSPHOKINASE; Value: 76; Range: 39-308; Units: U/L; Status: F Test: CK-MB VALUE MASS; Value: 5.0; Range: 0.0-3.6; Abnormal: Above high normal; Units: NG/ML; Status: F Test: MB/CK RELATIVE INDEX; Value: 6.57; Range: < OR =4; Abnormal: Above high normal; Status: F Test Note: ; DIAGNOSIS CRITERIA MMB ng/ml Relative Index (RI) NON-AMI < or = 5 N/A GALVEZ ZONE > 5 < or = 4 AMI > 5 > 4 Lab Order: Troponin; 06/06/16 05:17 Test: TROPONIN I; Value: 0.15; Range: < 0.10; Abnormal: Above high normal; Units: NG/ML; Status: F Test Note: ; Troponin I Reference Interval for [employer] LOCI: 99th Percentile= 0.00-0.045 ng/ml Risk Stratification: <= 0.10 ng/ml Decreased Risk for Adverse Clinical Events. 0.10-1.50 ng/ml Increased Risk for Adverse Clinical Events. Evaluation of additional criterion and/or repeat testing in 2-6 hours is suggested to rule out myocardial damage. >= 1.50 ng/ml Indicative of Myocardial Injury. Lab Order: Theophylline Level; 06/06/16 05:17 Test: THEOPHYLLINE LEVEL; Value: 3.2; Range: 10.0-20.0; Abnormal: Below low normal; Units: UG/ML; Status: F Lab Order: -Arterial Blood Gas; 06/06/16 06:04 Test: ABG pH (ARTERIAL); Value: 7.270; Range: 7.350-7.450; Abnormal: Below low normal; Units: UNITS; Status: F Test: ABG PARTIAL PRESSURE CO2; Value: 63.1; Range: 35.0-45.0; Abnormal: Above upper panic limits; Units: mmHg; Status: F Test: ABG PARTIAL PRESSURE O2; Value: 206.5; Range: 75.0-100.0; Abnormal: Above high normal; Units: mmHg; Status: F Test: ABG TOTAL CO2; Value: 30.3; Range: 23.0-31.0; Units: MEQ/L; Status: F Test: ABG HCO3; Value: 28.3; Range: 22.0-26.0; Abnormal: Above high normal; Units: MEQ/L; Status: F Test: ABG BASE EXCESS; Value: 0.2; Range: -2.0-2.0; Status: F Test: ABG STANDARD HCO3; Value: 24.7; Range: 22.0-26.0; Units: MEQ/L; Status: F Test: ABG O2 SATURATION; Value: 99.5; Range: 95.0-99.0; Abnormal: Above high normal; Units: %; Status: F Test: ABG DEVICE; Value: NASAL DREW; Status: F Lab Order: ARTERIAL BLOOD GAS; [facility] 06/06/16 07:44 Test: ABG pH (ARTERIAL); Value: 7.318; Range: 7.350-7.450; Abnormal: Below low normal; Units: UNITS; Status: F Test: ABG PARTIAL PRESSURE CO2; Value: 56.6; Range: 35.0-45.0; Abnormal: Above high normal; Units: mmHg; Status: F Test: ABG PARTIAL PRESSURE O2; Value: 78.1; Range: 75.0-100.0; Units: mmHg; Status: F Test: ABG TOTAL CO2; Value: 30.1; Range: 23.0-31.0; Units: MEQ/L; Status: F Test: ABG HCO3; Value: 28.4; Range: 22.0-26.0; Abnormal: Above high normal; Units: MEQ/L; Status: F Test: ABG BASE EXCESS; Value: 1.3; Range: -2.0-2.0; Status: F Test: ABG STANDARD HCO3; Value: 25.6; Range: 22.0-26.0; Units: MEQ/L; Status: F Test: ABG O2 SATURATION; Value: 95.1; Range: 95.0-99.0; Units: %; Status: F Test: ABG DEVICE; Value: BIPAP; Status: F Lab Order: CARDIAC MARKER PANEL; [facility] 06/06/16 11:08 Test: CPK CREATINE PHOSPHOKINASE; Value: 81; Range: 39-308; Units: U/L; Status: F Test: CK-MB VALUE MASS; Value: 7.3; Range: 0.0-3.6; Abnormal: Above high normal; Units: NG/ML; Status: F Test: MB/CK RELATIVE INDEX; Value: 9.01; Range: < OR =4; Abnormal: Above high normal; Status: F Test: TROPONIN I; Value: 0.67; Range: < 0.10; Abnormal: High; Units: NG/ML; Status: F Test Note: ; DIAGNOSIS CRITERIA MMB ng/ml Relative Index (RI) NON-AMI < or = 5 N/A GALVEZ ZONE > 5 < or = 4 AMI > 5 > 4 Lab Order: CARDIAC MARKER PANEL; [facility] 06/06/16 17:29 Test: CPK CREATINE PHOSPHOKINASE; Value: 96; Range: 39-308; Units: U/L; Status: F Test: CK-MB VALUE MASS; Value: 8.6; Range: 0.0-3.6; Abnormal: Above high normal; Units: NG/ML; Status: F Test: MB/CK RELATIVE INDEX; Value: 8.95; Range: < OR =4; Abnormal: Above high normal; Status: F Test: TROPONIN I; Value: 1.06; Range: < 0.10; Abnormal: High; Units: NG/ML; Status: F Test Note: ; DIAGNOSIS CRITERIA MMB ng/ml Relative Index (RI) NON-AMI < or = 5 N/A GALVEZ ZONE > 5 < or = 4 AMI > 5 > 4 Lab Order: ARTERIAL BLOOD GAS; [facility] 06/06/16 13:56 Test: ABG pH (ARTERIAL); Value: 7.409; Range: 7.350-7.450; Units: UNITS; Status: F Test: ABG PARTIAL PRESSURE CO2; Value: 48.4; Range: 35.0-45.0; Abnormal: Above high normal; Units: mmHg; Status: F Test: ABG PARTIAL PRESSURE O2; Value: 83.0; Range: 75.0-100.0; Units: mmHg; Status: F Test: ABG TOTAL CO2; Value: 31.4; Range: 23.0-31.0; Abnormal: Above high normal; Units: MEQ/L; Status: F Test: ABG HCO3; Value: 29.9; Range: 22.0-26.0; Abnormal: Above high normal; Units: MEQ/L; Status: F Test: ABG BASE EXCESS; Value: 4.5; Range: -2.0-2.0; Abnormal: Above high normal; Status: F Test: ABG STANDARD HCO3; Value: 28.5; Range: 22.0-26.0; Abnormal: Above high normal; Units: MEQ/L; Status: F Test: ABG O2 SATURATION; Value: 96.6; Range: 95.0-99.0; Units: %; Status: F Lab Order: RESPIRATORY PANEL; [facility] 06/06/16 18:04 Test: RESPIRATORY PANEL; Value: RP PANEL RESULT NEGATIVE by PCR; Status: F Test: RESPIRATORY PANEL; Value: Comments:; Status: F Test Note: ; This respiratory PCR panel detects Influenza A H1, H3 and 2009 H1 viruses, Influenza B virus, Respiratory syncytial virus, Human metapneumovirus, Parainfluenza virus 1, 2, 3 and 4, Adenovirus, Rhinovirus/Enterovirus, Coronavirus HKU1, NL63, OC43 and 229E, Bordetella pertussis, Mycoplasma pneumoniae and Chlamydia pneumoniae. Lab Order: C REACTIVE PROTEIN QUANTITATIV; [facility] 06/06/16 11:08 Test: C REACTIVE PROTEIN QUANTITATIV; Value: 1.24; Range: 0.00-0.30; Abnormal: Above high normal; Units: MG/DL; Status: F Lab Order: HEMOGLOBIN A1C; [facility] 06/06/16 17:29 Test: HEMOGLOBIN A1c; Value: 6.2; Range: 4.5-6.2; Units: %; Status: F Test: ESTIMATED AVERAGE GLUCOSE; Value: 131; Range: 60-110; Abnormal: Above high normal; Units: MG/DL; Status: F Lab Order: ARTERIAL BLOOD GAS; [facility] 06/06/16 18:07 Test: ABG pH (ARTERIAL); Value: 7.405; Range: 7.350-7.450; Units: UNITS; Status: F Test: ABG PARTIAL PRESSURE CO2; Value: 41.3; Range: 35.0-45.0; Units: mmHg; Status: F Test: ABG PARTIAL PRESSURE O2; Value: 57.8; Range: 75.0-100.0; Abnormal: Below low normal; Units: mmHg; Status: F Test: ABG TOTAL CO2; Value: 26.6; Range: 23.0-31.0; Units: MEQ/L; Status: F Test: ABG HCO3; Value: 25.3; Range: 22.0-26.0; Units: MEQ/L; Status: F Test: ABG BASE EXCESS; Value: 0.5; Range: -2.0-2.0; Status: F Test: ABG STANDARD HCO3; Value: 24.8; Range: 22.0-26.0; Units: MEQ/L; Status: F Test: ABG O2 SATURATION; Value: 91.5; Range: 95.0-99.0; Abnormal: Below low normal; Units: %; Status: F Lab Order: Fingerstick Blood Sugar; [facility] 06/06/16 17:39 Test: BEDSIDE GLUCOSE; Value: 145; Range: 83-110; Abnormal: Above high normal; Units: MG/DL; Status: F Radiology Order: Chest, 1 View Test: Chest, 1 View REASON FOR EXAMINATION: Shortness of Breath; Clinical: Shortness of breath.; ; Comparison: 05/31/2016.; ; Findings:; Mediastinum and cardiac silhouette are stable and within normal limits for; portable technique. Lung mederos demonstrate diffuse chronic interstitial changes; and blunting to the diaphragmatic surfaces. Trace right basilar atelectasis; cannot be excluded. No definite effusion. No pneumothorax. Skeletal structures; intact.; ; Impression:; Chronic stable changes. 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; : 1940 Requested By: EVANS LUEVANO; Order Number: [id number] Reading MD: Jessica Lemon; Measurements; Intervals Elkin; Rate: 121 P: 75; KS: 154 QRS: 18; QRSD: 130 T: 105; QT: 321; QTc: 456; Interpretive Statements; SINUS TACHYCARDIA; MODERATE INTRAVENTRICULAR CONDUCTION DELAY; ST DEVIATION AND MODERATE T-WAVE ABNORMALITY, CONSIDER ISCHEMIA; CLINICAL CORRELATION; Electronically Signed On 06-06-2016 8:17:28 EST by Jessica Lemon; Radiology Order: CT ANGIO CHEST Test: CT ANGIO CHEST REASON FOR EXAMINATION: r/o pe; Clinical: Acute chest pain.; ; Technique: Axial contrast enhanced images from the thoracic inlet to the upper; abdomen using 100 ml Isovue 370 intravenous contrast material with coronal and; sagittal re-formations.; ; Findings: Satisfactory enhancement of the pulmonary vasculature is achieved and; no filling defects are identified to suggest pulmonary embolus. Opacification; and mucous plugging to the right lower lobe bronchi is appreciated with trace; atelectasis. Diffuse chronic COPD and emphysematous changes are appreciated. No; further consolidation, nodule or mass lesion. No pleural effusion/reaction or; pneumothorax. Mediastinum demonstrates atherosclerotic changes to the thoracic; aorta and coronary arteries without pericardial effusion. Mild cardiomegaly; suggested. No obvious adenopathy. Surrounding musculoskeletal structures; demonstrate age-related changes without focal osseous abnormality.; ; ; ; Impression:; 1. No evidence for pulmonary embolus.; 2. Mucous plugging to the right lower lobe bronchi with associated mild; atelectasis.; ; ; Signed by; Garret Lynn MD 06/06/2016 09:32 A; Outcome: 07:28 Decision to Hospitalize by Provider. pc 19:59 Discharge Assessment: Patient awake, alert and oriented x 3. No cognitive and/or ld5 functional deficits noted. Patient verbalized understanding of disposition instructions. patient administered narcotics - no. The following High Risk Discharge criteria are identified: Yes, ICu admit. Admitted to ICU accompanied by nurse, accompanied by tech, family with patient, via stretcher, with oxygen, on monitor, with chart. Condition: stable. CT Study completed. Property :Personal belongings accompany Pt. 20:18 Patient left the ED. ld5 Signatures: Dispatcher [employer] EDCamron Santamaria MD MD pc Johnson, Bruce, RN RN jose Valentine, Darling Weller, RN RN keith Kincaid,Linh,RT RT ac1 Arlette Lopez kt1 Rose, Sabrina, Light Bulb Tester Unit ml3 Gianna MoyerRN RN ld5 Sammi Wallace,SUPRIYA RN dsf Adams Zafar jh6 Evans Luevano, DO cs11 Florentin Yang RN RN mgs Clarita Monroe, Reg Reg hs2 Elly Colmenares, ASTRONOMY INSTRUCTOR ASTRONOMY INSTRUCTOR cln Corrections: (The following items were deleted from the chart) 05:11 05:11 Home medication list is obtained from pill bottles, mgs mgs 05:38 05:33 Pulse 126bpm; Monitor; Pulse Ox 98%; mgs mgs 06:07 06:05 Respiratory: 6 6 06:43 06:32 Pulse 93bpm; Monitor; Pulse Ox 99% 02 30% BiPAP; mgs mgs MTDD
--- NOTE | 2016-06-06 20:20 | EDDOCDS ---
Physician Documentation [facility] Name: Eliel Silvestre Age: 76 yrs Sex: Male : 1940 Arrival Date: 06/06/2016 Time: 04:58 Bed 2 Private MD: Disposition: 06/06/16 07:28 Hospitalization ordered by Rosy Garcia for Inpatient Admission. Preliminary diagnosis are Acute and chronic respiratory failure, Chronic obstructive pulmonary disease with acute lower respiratory infection. - Bed requested for M ICU. - Status is Inpatient Admission. ld5 - Condition is Stable. - Problem is new. - Symptoms have improved. Historical: - Allergies: BENZODIAZEPINESreported reaction to unknown benzodiazepine; GABAPENTIN; - Home Meds: 1. DOK 100 mg oral tab 1 tab 2 times per day 2. atorvastatin 40 mg oral tab once daily 3. prednisone 10 mg Oral tab once daily 4. Paxil 20 mg Oral tab 1 tab once daily 5. Xanax 0.25 mg Oral tab 1 tab 3 times per day for Anxiety 6. omeprazole 20 mg Oral cpDR 2 caps 2 times per day 7. theophylline 400 mg Oral TbER 1 tab once daily 8. Combivent Inhl Unknown every 6 hours 9. symbicort 160-4.5 twice a day 10. Oxygen 2.0-2.5 L continuous - PMHx: cancer, kidney; Cataracts; colon polyps; COPD; - Social history: Smoking status: Patient uses tobacco products, heavy tobacco smoker. No barriers to communication noted, The patient speaks fluent Maori. - Family history: Not pertinent. - : The pt / caregiver states he / she is not on anticoagulants. Home medication list is obtained from Hang w/ import data, pill bottles. - Exposure Risk Screening:: None identified. Vital Signs: 06/06 05:04 BP 183 / 92 LA Sitting (auto/reg); Pulse 120; Resp 28 S; Temp 97.0(TE); Pulse Ox 97% ; cln 05:04 BP 183 / 92 (auto/); mgs 05:05 Pulse Ox 97% ; mgs 05:15 BP 186 / 116 (auto/); mgs 05:15 Pulse Ox 96% ; mgs 05:16 Pulse 125 MON; Pulse Ox 95% ; mgs 05:17 BP 177 / 86 (auto/); mgs 05:30 Pulse Ox 96% on 40% BiPAP; mgs 05:33 BP 93 / 65 (auto/); mgs 05:33 Pulse 126 MON; Resp 33; Pulse Ox 98% on 40% BiPAP; mgs 05:39 BP 131 / 93 (auto/); mgs 05:39 Pulse 122 MON; Resp 32; Pulse Ox 98% on 40% BiPAP; mgs 05:47 BP 135 / 72 (auto/); mgs 05:47 Pulse 113 MON; Pulse Ox 99% on 40% BiPAP; mgs 06:02 BP 106 / 58 (auto/); mgs 06:02 Pulse 106 MON; Pulse Ox 99% on 40% BiPAP; mgs 06:30 Temp 98.6(TE); cln 06:32 BP 117 / 58 (auto/); mgs 06:32 Pulse 93 MON; Resp 22; Pulse Ox 99% on 30% BiPAP; mgs 07:17 BP 115 / 59 (auto/); bcj 07:17 Pulse 91 MON; Pulse Ox 93% ; bcj 07:32 BP 111 / 57 (auto/); bcj 07:32 Pulse 90 MON; Pulse Ox 93% ; bcj 07:37 Weight 48.5 kg / 106.92 lbs (M); bcj 08:02 BP 117 / 59 (auto/); bcj 08:02 Pulse 87 MON; bcj 08:17 BP 136 / 68 (auto/); bcj 08:17 Pulse 94 MON; bcj 08:32 BP 123 / 61 (auto/); bcj 08:32 Pulse 92 MON; Pulse Ox 93% ; bcj 08:47 BP 122 / 66 (auto/); bcj 08:47 Pulse 88 MON; Pulse Ox 99% ; bcj 09:02 BP 110 / 55 (auto/); bcj 09:02 Pulse 83 MON; Pulse Ox 97% ; bcj 09:17 BP 112 / 60 (auto/); bcj 09:17 Pulse 89 MON; Pulse Ox 95% ; bcj 09:32 BP 116 / 66 (auto/); bcj 09:32 Pulse 88 MON; bcj 09:47 BP 119 / 57 (auto/); bcj 09:47 Pulse 88 MON; bcj 10:02 BP 129 / 62 (auto/); bcj 10:02 Pulse 91 MON; Pulse Ox 92% ; bcj 10:17 BP 112 / 59 (auto/); bcj 10:17 Pulse 84 MON; Pulse Ox 97% ; bcj 10:32 BP 118 / 62 (auto/); bcj 10:32 Pulse 82 MON; Pulse Ox 95% ; bcj 10:47 BP 120 / 84 (auto/); bcj 10:47 Pulse 83 MON; bcj 11:02 BP 140 / 68 (auto/); bcj 11:02 Pulse 84 MON; bcj 11:17 BP 127 / 62 (auto/); bcj 11:17 Pulse 83 MON; bcj 11:32 BP 115 / 60 (auto/); bcj 11:32 Pulse 81 MON; bcj 11:47 BP 110 / 56 (auto/); bcj 11:47 Pulse 79 MON; bcj 12:02 BP 115 / 55 (auto/); bcj 12:02 Pulse 79 MON; bcj 12:17 BP 136 / 84 (auto/); bcj 12:17 Pulse 86 MON; bcj 12:32 BP 131 / 76 (auto/); bcj 12:32 Pulse 95 MON; bcj 12:47 BP 133 / 68 (auto/); bcj 12:47 Pulse 83 MON; bcj 13:02 BP 131 / 70 (auto/); bcj 13:02 Pulse 84 MON; bcj 13:17 BP 118 / 76 (auto/); bcj 13:17 Pulse 83 MON; Pulse Ox 99% ; bcj 13:32 BP 119 / 67 (auto/); bcj 13:32 Pulse 80 MON; Pulse Ox 98% ; bcj 13:47 BP 108 / 63 (auto/); bcj 13:47 Pulse 77 MON; Pulse Ox 99% ; bcj 15:17 BP 155 / 74 (auto/); dsf 15:17 Pulse 76 MON; dsf 15:32 BP 157 / 75 (auto/); dsf 15:32 Pulse 78 MON; dsf 15:47 BP 129 / 67 (auto/); dsf 15:47 Pulse 81 MON; dsf 16:02 BP 121 / 66 (auto/); dsf 16:02 Pulse 78 MON; dsf 16:17 BP 140 / 72 (auto/); dsf 16:17 Pulse 82 MON; dsf 16:32 BP 129 / 70 (auto/); dsf 16:32 Pulse 85 MON; dsf 16:47 BP 128 / 74 (auto/); dsf 16:47 Pulse 84 MON; dsf 17:02 BP 139 / 81 (auto/); dsf 17:02 Pulse 96 MON; Pulse Ox 75% ; dsf 17:17 BP 136 / 74 (auto/); dsf 17:17 Pulse Ox 99% ; dsf 17:47 BP 121 / 62 (auto/); dsf 17:47 Pulse 87 MON; dsf 18:02 BP 106 / 56 (auto/); dsf 18:02 Pulse 85 MON; Pulse Ox 96% ; dsf 19:58 BP 109 / 57; Pulse 95; Resp 22; Temp 98.1; Pulse Ox 96% ; ld5 MDM: 05:06 -Arterial Blood Gas Ordered. EDMS 05:07 -Blood Culture (Adults Only), peripheral from different site, or from device/port/PICC keith etc. if present ordered. 05:07 Casino Worker/Pulse Ox/q 15 min VS ordered. apr 05:07 IV Saline Lock ordered. apr 05:07 Oxygen at 4L/Min NC or Home dosage ordered. apr 05:07 Rhythm Strip to chart ordered. apr 05:08 Chest, 1 View Ordered. EDMS 05:08 -Blood Culture Ordered. EDMS 05:08 Basic Metabolic Profile Ordered. EDMS 05:08 CBC with Diff Ordered. EDMS 05:08 Cardiac Injury Profile Ordered. EDMS 05:08 Troponin Ordered. EDMS 05:08 ECG WITH READING ER PHYS+CARDIAG ordered. EDMS 05:20 Dexamethasone 12 mg IV at bolus once ordered. cs11 05:21 -Blood Culture (Adults Only), peripheral from different site, or from device/port/PICC ml3 etc. if present complete. 05:21 Call Respiratory ordered. cs11 05:21 BIPAP INPATIENT+RESP-VENT ordered. EDMS 05:22 Albuterol-Ipratropium 1 neb Nebulizer every 20 minutes x3 ordered. cs11 05:22 BLOOD CULTURES Ordered. EDMS 05:26 Theophylline Level Ordered. EDMS 05:37 Call Respiratory complete. ml3 05:52 -Arterial Blood Gas Reviewed. cs11 05:52 Basic Metabolic Profile Reviewed. cs11 05:52 CBC with Diff Reviewed. cs11 05:52 Cardiac Injury Profile Reviewed. cs11 05:52 Troponin Reviewed. cs11 05:58 Call Respiratory ordered. jh6 05:58 Call Respiratory complete. jh6 05:59 -Arterial Blood Gas Ordered. EDMS 06:14 Financial registration complete. hs2 06:24 [facility] Payment Agreement was scanned into [employer] and attached to record. hs2 06:57 -Arterial Blood Gas Reviewed. cs11 07:31 Redraw ABG (put time in details section) ordered. pc 07:31 BED REQUEST+ADM ordered. EDMS 07:32 Redraw ABG (put time in details section) complete. lbd 07:36 ARTERIAL BLOOD GAS Ordered. EDMS 08:18 ARTERIAL BLOOD GAS Reviewed. pc 08:18 Chest, 1 View Reviewed. pc 08:49 CARDIAC MARKER PANEL Ordered. EDMS 08:49 CARDIAC MARKER PANEL Ordered. EDMS 08:50 ARTERIAL BLOOD GAS Ordered. EDMS 08:50 RESPIRATORY PANEL Ordered. EDMS 08:50 SPUTUM CULTURE AND GRAM STAIN Ordered. EDMS 08:52 BIPAP INPATIENT ordered. EDMS 08:53 Admission / Observation Status ordered. EDMS 08:53 ECHOCARD,DOPPLER/COLOR FLOW ordered. EDMS 08:53 ELECTROCARDIOGRAM ADULT ordered. EDMS 08:53 CT ANGIO CHEST Ordered. EDMS 11:17 C REACTIVE PROTEIN QUANTITATIV Ordered. EDMS 13:29 HEMOGLOBIN A1C Ordered. EDMS 15:04 ARTERIAL BLOOD GAS Ordered. EDMS 15:17 COPD DIET ordered. EDMS 18:06 Fingerstick Blood Sugar Ordered. EDMS 19:32 C REACTIVE PROTEIN QUANTITATIV Ordered. EDMS 19:32 COMPLETE BLOOD COUNT Ordered. EDMS 19:32 BASIC METABOLIC PROFILE Ordered. EDMS 19:32 MAGNESIUM LEVEL Ordered. EDMS Administered Medications: 05:28 Drug: Dexamethasone 12 mg [dexamethasone 4 mg/mL injection solution] Route: IV; Rate: mgs bolus; Site: left forearm; 05:37 Drug: Albuterol-Ipratropium 1 neb [ipratropium-albuterol 0.5 mg-3 mg(2.5 mg base)/3 mL 6 nebulization soln (1 neb)] Route: Nebulizer; 05:57 Drug: Albuterol-Ipratropium 1 neb [ipratropium-albuterol 0.5 mg-3 mg(2.5 mg base)/3 mL jh6 nebulization soln (1 neb)] Route: Nebulizer; 06:18 Drug: Albuterol-Ipratropium 1 neb [ipratropium-albuterol 0.5 mg-3 mg(2.5 mg base)/3 mL jh6 nebulization soln (1 neb)] Route: Nebulizer; Signatures: Dispatcher [employer] EDMS Camron Flores MD MD pc Daly, Linda, Health Sciences Department Chair Unit lbd Sarabjit Heard, RN RN Darling Vieyra RN SUPRIYA Rose BayleeButchMarce, Health Sciences Department Chair Unit ml3 Gianna Moyer RN RN ld5 Hollis, Jacob jh6 Checo Merritt DO DO cs11 Florentin Yang RN RN mgDima Henry RN RN [facility] Clarita Monroe, Reg Reg hs2 The chart was reviewed and I authenticate all verbal orders and agree with the evaluation and treatment provided.Corrections: (The following items were deleted from the chart) 05:11 05:11 Home medication list is obtained from pill bottles, mgs mgs 11:16 08:50 C REACTIVE PROTEIN QUANTITATIV ordered. EDMS EDMS 15:04 08:53 NPO DIET ordered. EDMS EDMS Attachments: 06:24 [facility] Payment Agreement hs2 MTDD
[2016-06-06] MEDS ORDERED: CLOPIDOGREL 75 MG TAB PO STA (21:02)
[2016-06-06] MEDS: ATORVASTATIN 20 MG TAB PO SCH (21:25)
[2016-06-06] MEDS: ALPRAZolam 0.25 MG TAB PO PRN (23:10)
[2016-06-06] MEDS: IPRATROPIUM 0.5MG/ALBUTEROL 2.5MG INH SOL UD 3ML (DUONEB)(J7620) NEB PRN (23:21)
[2016-06-07] VITALS (14 sets, daily range): BP systolic 114–133; BP diastolic 65–88; O2SAT 94–97
[2016-06-07] MEDS: IPRATROPIUM 0.5MG/ALBUTEROL 2.5MG INH SOL UD 3ML (DUONEB)(J7620) NEB SCH ×4 (01:50→19:24)
--- NOTE | 2016-06-07 02:38 | CR ---
DATE OF CONSULTATION: 06/06/2016 REFERRING PROVIDER: Dr. Rosy Garcia PRIMARY CARE PROVIDER: Dr. Michael Chavarria PRIMARY HOOP DRIVING MACHINE OPERATOR HELPER: Dr. Gunner Zhong REASON FOR CONSULTATION: Abnormal serum troponin. HISTORY OF PRESENT ILLNESS: 76-year-old male well-known by the office and with multiple risk factors for coronary artery disease (CAD), as well as severe chronic obstructive pulmonary disease (COPD), chronic smoker/tobacco addiction, has been sick on-and-off, but in the last couple of days he developed increasing shortness of breath and this morning he called emergency medical services (EMS) and he was brought to the emergency room for further evaluation. He stated that he thought he was going to pass out and this morning. Upon arrival at the emergency room (ER), his vital signs revealed a blood pressure of 183/92 with a pulse of 120, respirations 28, and his temperature was 97 degrees Fahrenheit, with an oxygen saturation of about 90%. Upon arrival of the EMS team, his oxygen saturation was reported to be 72%. He was found to be hypercapnic and was started on BiPAP and then his oxygen saturation increased to more than 90%. He was admitted to the intensive care unit (ICU) for further management and monitoring. When I saw Mr. Eliel Silvestre in the evening in ICU, he was having moderate shortness of breath at rest, but no orthopnea. He denies any fever at home, but he thinks he was having chills at times. He denies any nausea, vomiting, diarrhea, melena, or hematemesis. He does complain of constipation. He denies any chest pain, but shortness of breath. There is no syncope or near syncope. There is no focal manifestation. He stated that a couple months ago, he thinks he had the flu and after that, he had a stomach bug and has been sick on-and-off, but has managed to stay home. He has a past medical history positive for coronary artery disease, nonrestrictive by last cardiac catheterization, peripheral arterial disease with an occluded right internal carotid artery and moderate disease in the left internal carotid artery, COPD, severe for which he has been on oxygen at 2-3 liters per minute continuously, tobacco addiction, mild bilateral pedal edema, hyperlipidemia, anxiety/depression, gastroesophageal reflux disease (GERD). He does have a history of myocardial infarction, arthritis, migraine headaches, and he is blind in the left eye. There is a questionable history of stroke. He does have a history of hiatal hernia. In 2008, he was diagnosed with renal cell carcinoma involving the right kidney and had a right nephrectomy. There is known history of cardiomyopathy, sudden cardiac , diabetes mellitus, thyroid disorders, or hypertension. He does also have peripheral arterial disease involving the right superficial femoral artery (SFA) for which he had received percutaneous transluminal angioplasty ([employer] SLABS) in the past. Past surgical history is positive for right nephrectomy, polypectomy, and hernia repair. FAMILY HISTORY: Noncontributory. SOCIAL HISTORY: Patient lives alone at home and he does smoke about a half pack a day of cigarettes, but he used to smoke heavily. He denies any ETOH abuse or illicit drugs. ALLERGIES: There is allergies to BENZODIAZEPINES and GABAPENTIN. PHYSICAL EXAMINATION: VITAL SIGNS: His last vital signs revealed a blood pressure of 120/84 with a pulse of 82, respirations 20, and his maximum temperature was 97.3 degrees Fahrenheit, with an oxygen saturation of 99% on BiPAP with an FiO2 of 0.3. HEENT: Atraumatic. NECK: Supple with extended jugular. LUNGS: Revealed minimal crackles at the bases and bilateral end expiratory wheezing, particularly involving the middle and lower portion of the lungs when auscultated posteriorly. HEART: The heart examination revealed normal S1 and S2, mildly tachycardic. The point of maximum impulse (PMI) is displaced inferiorly and laterally. There is no rub. I could not appreciate any murmurs. ABDOMEN: Soft and nontender. No bruits. EXTREMITIES: Revealed just mild bilateral pedal edema. No cyanosis. Peripheral pulses: Dorsalis pedis were palpated. NEUROLOGICAL: Grossly is negative for focal deficit. LABORATORY DATA: CBC done today revealed a WBC of 17.9, hemoglobin 12.0, hematocrit 40.3, and platelet count 460,000. BMP revealed a sodium of 140, potassium 4.9, chloride 104, CO2 32, BUN 20, creatinine 1.4, GFR 51.3, and fasting glucose 239. Serum hemoglobin A1c is 6.2. Calcium is 8.7. Serum troponin is 0.15, 0.67, and 1.06. C-reactive protein is 1.24. Serum theophylline level is 3.2. ABG done on admission revealed a pH of 7.0, pCO2 94.9, pO2 173, and oxygen saturation was 98% with a bicarbonate of 21.4. Last ABG done at 6 p.m. revealed a pH of 7.40, pCO2 41.3, pO2 57.8, and oxygen saturation of 91.5%. Chest x-ray revealed chronic stable changes and mild increased vascular markings, tortuous aorta. No cardiomegaly. There is blunting of the costophrenic angles. CT angiogram looking for pulmonary embolism was negative. Mucus plug was noted in the right lower lobe bronchi associated with mild atelectasis. Electrocardiogram in the ER revealed sinus tachycardia at 221 beats per minute, IVCD, and nonspecific ST-T abnormalities noted in the inferolateral leads. IMPRESSION: 76-year-old male with strong history of coronary artery disease developed increased shortness of breath in the last couple days and was found to be in respiratory failure and his labs revealed minimal troponin leak. This seems to be related to demand ischemia secondary to his respiratory failure and exacerbation of chronic obstructive pulmonary disease (COPD). He denied any chest pain. His medications were reviewed and I will continue the same for now. He does have risk factors for coronary artery disease (CAD) and he will be started on Plavix. He will continue with the aspirin, and the statin. We will also stay away from beta roe at this present time in view of his exacerbation of COPD. We will also stay from any ROSARIO inhibitor or angiotensin receptor roe (ARB). He had an echocardiogram done earlier today, it will be reviewed and further recommendation will be given. While in the hospital, he will need and benefit from nicotine patch. It was a pleasure to participate in the care of Mr. Eliel Silvestre for his underlying cardiac condition. I will continue to monitor him along with you while in the hospital. Please do not hesitate to call if any questions.
[2016-06-07 05:11] LABS: MEAN CORPUSCULAR HEMOGLOBIN 26.9 pg (27.0-33.0); MEAN CORPUSCULAR VOLUME 84.2 fl (80.0-96.0); RED CELL DISTRIBUTION WIDTH 15.4 % (11.5-14.5)
[2016-06-07 05:18] LABS: CALCIUM LEVEL 8.5 MG/DL (8.8-10.2); CREATININE FOR GFR 1.56 MG/DL (0.70-1.30); GLOMERULAR FILTRATION RATE 46.1 (>42); MAGNESIUM LEVEL 2.8 MG/DL (1.8-2.4)
--- NOTE | 2016-06-07 05:40 | ECHO ---
DATE OF PROCEDURE: 06/06/2016 DATE OF : 1940 AGE: 76 REFERRING PROVIDER: Dr. Garcia. PATIENT LOCATION: [place] [address]. REASON FOR ECHOCARDIOGRAM: Shortness of breath. 2D MEASUREMENTS: IVS: 0.9 cm LV: 4.8 cm LVPW: 0.9 cm LA: 3.6 cm Aorta: 3.0 cm IVC: 1.8 cm DOPPLER MEASUREMENTS: Peak velocity across the aortic valve: 0.86 m/s Peak velocity across the LVOT: 0.47 m/s Mitral E: 0.57 Mitral A: 1.1 Ratio 0.5 2D COMMENTS: 1. Normal left ventricular size and wall thickness but with a severely depressed global left ventricular systolic function. There is moderate to severe global hypokinesis but the apex seems to be akinetic. The estimated global left ventricular systolic ejection fraction is 20%. 2. Normal left atrium. Normal right atrium and right ventricle. 3. The atrial septum appeared to be normal without evidence of defect or shunt. 4. Normal aortic root. 5. Trace pericardial effusion noted, no evidence of cardiac tamponade. 6. Mildly calcified aortic valve with normal leaflet excursion. Mildly calcified mitral annulus with normal anterior mitral valve leaflet motion. Normal tricuspid valve. 7. The inferior vena cava was normal in size, central venous pressure is probably normal. DOPPLER: It detects moderate mitral regurgitation. Abnormal relaxation pattern was noted across the mitral valve leaflets as well as the mitral valve annulus consistent with delayed relaxation. IMPRESSION: 1. Severe global left ventricular systolic dysfunction with global hypokinesis. There are features of left ventricular diastolic dysfunction manifested by abnormal relaxation. 2. Mitral annulus calcification with probably moderate mitral regurgitation. 3. Trace pericardial effusion. MTDD
[2016-06-07] MEDS: HEPARIN SOD (PORCINE) 5000 UNITS/ML VIAL SC SCH ×3 (06:35→22:02)
[2016-06-07] MEDS: methylPREDNISolone INJ 125 MG/2 ML VIAL (J2930) IV SCH ×3 (06:35→20:27)
[2016-06-07] MEDS: SENOKOT S TAB PO SCH ×2 (07:54→20:28)
[2016-06-07] MEDS: HumaLOG INSULIN (NovoLOG) PER UNIT SC SCH ×4 (07:54→20:28)
[2016-06-07] MEDS: SYMBICORT 160/4.5MCG INHALER 6GM INH SCH ×2 (07:58→19:24)
[2016-06-07] MEDS: TIOTROPIUM INHALER/CAPSULE (SPIRIVA) INH SCH (07:58)
[2016-06-07] MEDS: OMEPRAZOLE 20 MG CAP PO SCH ×2 (08:00→20:27)
[2016-06-07] MEDS: PARoxetine 20 MG TAB PO SCH (08:00)
[2016-06-07] MEDS: guaiFENesin ER 600 MG TAB PO SCH ×2 (08:01→20:28)
[2016-06-07] MEDS: FERROUS SULFATE 325MG TAB PO SCH (08:01)
[2016-06-07] MEDS: CLOPIDOGREL 75 MG TAB PO SCH (08:01)
[2016-06-07] MEDS: ASPIRIN 81 MG ENTERIC TAB PO SCH (08:01)
[2016-06-07] MEDS: MULTIVITAMINS/MINERALS THERAP 1 TAB PO SCH (08:01)
[2016-06-07] MEDS: MIRALAX *UNIT DOSE* 17GM PACKET PO SCH (09:24)
--- NOTE | 2016-06-07 10:13 | REP ---
Clinical: Abdominal pain. Rule out obstruction. Technique: Upright view of the chest with supine and upright views of the abdomen and pelvis. Findings: Frontal upright view of the chest demonstrates diffuse chronic interstitial changes and fibrosis with superimposed right lower lobe atelectasis and small pleural effusion. Opacity to the right mid lung zone cannot be excluded although this may represent opacity secondary to overlying pectoralis musculature. Supine and upright views of the abdomen and pelvis demonstrate relatively nonspecific bowel gas pattern. Fecal stasis and/or ileus cannot be excluded. Right inguinal hernia suggested. Contrast material from recent CT is suggested throughout the enteric system and within the bladder. Skeletal structures demonstrate degenerative changes. Left iliac stent noted. Impression: Chest suggests right basilar atelectasis and small pleural effusion. Suboptimal evaluation of the abdomen and pelvis without definite evidence for obstruction. Fecal stasis and ileus cannot be excluded. Contrast material within the enteric system and bladder from recent CT noted. Signed by Garret Lynn MD 06/07/2016 10:05 A
[2016-06-07] MEDS: IPRATROPIUM 0.5MG/ALBUTEROL 2.5MG INH SOL UD 3ML (DUONEB)(J7620) NEB PRN ×2 (11:53→23:20)
[2016-06-07] MEDS: NICOTINE 14 MG/24 HR TRANSDERMAL TD SCH (11:58)
[2016-06-07] MEDS: AZITHROMYCIN INJ 500 MG, VIAL MATE ADAPTER 1 EACH in D5W 250 ML IV SCH (11:58)
--- NOTE | 2016-06-07 12:12 | REP ---
RENAL ULTRASOUND: Patient is status post right nephrectomy. Real-time sonographic evaluation of the left kidney is performed and demonstrates the left kidney to be normal in size and echotexture, measuring 12.4 x 4.9 x 5.6 cm. There is no hydronephrosis. Simple cyst in the mid left kidney measures 3.4 x 2.9 x 3.1 cm. Two smaller simple cysts are seen in the lower pole of the left kidney. No renal stones are seen. A left ureteral jet is seen in the urinary bladder with Doppler color evaluation. Bladder measures 9.6 x 6.2 x 2.5 cm with no gross mass or calculus. IMPRESSION: Status post right nephrectomy. No left hydronephrosis. Left renal cysts. Signed by Cheko Fields MD 06/07/2016 12:17 P
[2016-06-07] MEDS: cefTRIAXone SOD 2 GM in D5W MINI-BAG PLUS 50 ML IV SCH (13:27)
[2016-06-07 14:28] LABS: OSMOLALITY URINE 718 MOSM/KG (500-800)
[2016-06-07] MEDS: ATORVASTATIN 20 MG TAB PO SCH (20:28)
--- NOTE | 2016-06-07 20:37 | IPN ---
DATE: 06/07/2016 SUBJECTIVE: Patient is seen and examined. No acute events overnight. The patient is a very poor historian. Denies any chest pain, pressure or discomfort. Currently breathing a bit more comfortably, but still with mild dyspnea. Denies any fevers or chills. VITAL SIGNS: Temperature 97.3, pulse 102, respirations 22, blood pressure 133/65, pulse oximetry 96% on two liters nasal cannula. LABORATORY DATA: WBC 9, hemoglobin and hematocrit 10.3 over 32.4, platelets 415. Chemistry: Sodium 138, potassium 5, chloride 101, bicarbonate 30, BUN 33, creatinine 1.56. PHYSICAL EXAMINATION: GENERAL: Patient alert and oriented times three, mild dyspnea, conversational. HEENT: Normocephalic, atraumatic. PULMONARY: Bilateral wheeze. Poor air movement. Distant respirator sounds. CARDIAC: Regular, S1, S2. ABDOMEN: Soft. Hypoactive bowel sounds. Nontender. Inguinal hernia, nontender, large right inguinal hernia, reducible, soft, nontender. EXTREMITIES: No edema bilateral lower extremities. ASSESSMENT AND PLAN: This is a 76-year-old male patient with underlying medical history of chronic obstructive pulmonary disease (COPD), poor compliance, villous adenoma of the colon, coronary arterial disease with coronary artery bypass graft (CABG), chronic anxiety, chronic kidney disease (CKD), cerebrovascular accident (CVA), renal cell carcinoma with right nephrectomy, smoking, dyslipidemia, gastroesophageal reflux disease (GERD), admitted for hypercarbic respiratory failure with acute COPD exacerbation. 1. Hypercarbic respiratory failure secondary to acute COPD exacerbation, possibly also due to mucus plugging versus community-acquired bacterial pneumonia. Followup respiratory panel, sputum cultures, blood cultures, C-reactive protein. We will start him on Zithromax. Patient weaned off bilevel positive airway pressure (BiPAP). Arterial blood gas (ABG) appreciated. Diet has been advanced. CT angiogram negative for pulmonary embolism (PE). Continue Solu-Medrol, Symbicort, Spiriva, and DuoNeb. Case discussed with Dr. Vivas. 2. Coronary artery disease with elevation of cardiac enzymes. Cardiology Dr. Pak consulted. The patient sees Dr. Zhong. Cardiac enzymes trended to peak. Aspirin has been added. Continue statin. Plavix has also been added. Telemetry monitoring. Repeat electrocardiogram (EKG). The patient does not have any chest pain. Possibly demand ischemia due to respiratory distress. Echocardiogram is appreciated with ejection fraction (EF) of 20% and global hypokinesis. 3. Congestive heart failure (CHF). Strict intake and output. Will monitor urine status. Ejection fraction of 20% with diastolic and systolic dysfunction. Followup with cardiology for further recommendation. Avoid angiotension-converting enzyme (ROSARIO) and angiotensin II receptor blockers (ARB) given the patient's kidney function and respiratory status at this time. The patient currently on aspirin, Plavix and statin. Monitor blood pressure. 4. Acute on chronic renal insufficiency. The patient with right nephrectomy secondary to renal cell carcinoma. Followup blood urea nitrogen (BUN) and creatinine. Possible etiology includes contrast nephropathy versus cardiorenal. Followup BUN and creatinine. Followup urine output. Urine studies sent. Ultrasound renal appreciated. Will continue to monitor. Strict intake and output. 5. Hyperglycemia. A1c appreciated. Patient pre-diabetic. Followup fingerstick, insulin as needed. 6. Smoking. Counseling provided. Nicotine patch. 7. Anxiety. Continue home medication. 8. Depression. Continue home medication. 9. Gastroesophageal reflux disease (GERD). Continue proton pump inhibitor (PPI). 10. History of cerebrovascular accident (CVA). Continue aspirin, Plavix, statin. 11. Poor compliance complicating care. 12. Dyslipidemia. Continue statin. 13. Deep venous thrombosis (DVT) prophylaxis. Heparin subcutaneous. DISPOSITION PLANNING: Pending clinical improvement. Poor prognosis. Code status and goals of care discussed with patient and family. Family is aware that the patient has multiple comorbidities, poor long-term prognosis, but patient still wants to be full code at this point. We will repeat ABG tonight, off BiPAP. Physical therapy (PT) has been ordered. Continue to follow.
[2016-06-07] MEDS: ALPRAZolam 0.25 MG TAB PO PRN (22:02)
[2016-06-07 23:15] LABS: ABG BASE EXCESS 1.6 (-2.0-2.0); ABG HCO3 26.8 MEQ/L (22.0-26.0); ABG PARTIAL PRESSURE CO2 44.3 mmHg (35.0-45.0); ABG PARTIAL PRESSURE O2 75.6 mmHg (75.0-100.0); ABG STANDARD HCO3 25.9 MEQ/L (22.0-26.0); ABG TOTAL CO2 28.1 MEQ/L (23.0-31.0); ABG pH (ARTERIAL) 7.399 UNITS (7.350-7.450)
[2016-06-07] MEDS: VALSARTAN 40MG TABLET (DIOVAN) PO SCH (23:58)
[2016-06-08] VITALS (12 sets, daily range): BP systolic 106–136; BP diastolic 51–77; O2SAT 93–96
[2016-06-08] MEDS: IPRATROPIUM 0.5MG/ALBUTEROL 2.5MG INH SOL UD 3ML (DUONEB)(J7620) NEB SCH ×5 (02:26→19:56)
--- NOTE | 2016-06-08 03:50 | IPN ---
DATE: 06/07/2016 Mr. Eliel Silvestre was seen this evening. He was lying supine in bed in no acute distress at rest and he stated that he feels better. He denies any chest pain. He came yesterday because of worsening shortness of breath and he was found to be in respiratory failure. He underwent an echocardiogram done also yesterday that revealed severely depressed global left ventricular systolic function with diffuse hypokinesis that seemed to be new when compared with a prior study done in the office. He denies any bleeding. He has no focal manifestation. He is tolerating the nicotine patch. PHYSICAL EXAMINATION: Patient is alert and oriented with mild to moderate shortness of breath at rest. His last vital signs today revealed a blood pressure of 130/74 with a pulse of 105, respirations 24, and his temperature is 97.2 degrees Fahrenheit with an oxygen saturation of 97% on 2 liters nasal cannula. Examination of the head, ears, eyes, nose and throat: Atraumatic. Neck is supple without extended jugular. The lungs revealed minimal crackles at the base, but no wheezing noted today. The heart examination revealed normal S1 and S2 without gallops. The point of maximal impulse (PMI) is slightly displaced inferiorly and laterally. There is no rub. Abdomen is soft and nontender. Extremities reveal no pedal edema. Neurological examination grossly revealed no focal deficit. LABORATORIES: BMP done today revealed a sodium of 138, potassium 5.0, chloride 101, CO2 30, BUN 33, creatinine 1.56, GFR 46, fasting glucose 117, and calcium 8.5. Serum magnesium is 2.8. CRP today is 1.83. Serum troponin peaked up to 1.06, then decreased to 0.70. CBC revealed a WBC of 9.0, hemoglobin 10.3, hematocrit 32.4, and platelets 416,000. Serum theophylline today is 3.2. IMPRESSION: Shortness of breath, probably related to a combination of factors such as exacerbation of chronic obstructive pulmonary disease (COPD) and decompensated congestive heart failure secondary to left ventricular systolic dysfunction, acute on chronic. As mentioned above, left ventricular ejection fraction (LVEF) by echocardiogram is reported to be about 20%. It seemed that his symptoms and condition has improved since admission and he will continue current medications and I will initiate a small dose of an ARB with valsartan at 40 mg by mouth twice a day while that has indication for cardiomyopathy. His case will be discussed with black top paver operator if possible, it does not have to be in this hospitalization, we will start him on short-acting beta roe with carvedilol. He also will be started in the meantime, I will add long-acting nitrate and if his blood pressure remains stable, he will be started later on on hydralazine. Intravenous (IV) Lasix can be given as needed if he is retaining fluids. In the meantime, he will continue with the Plavix and the aspirin, as well as statin.
[2016-06-08] MEDS: IPRATROPIUM 0.5MG/ALBUTEROL 2.5MG INH SOL UD 3ML (DUONEB)(J7620) NEB PRN (04:46)
[2016-06-08] MEDS: HEPARIN SOD (PORCINE) 5000 UNITS/ML VIAL SC SCH ×3 (05:01→20:58)
[2016-06-08] MEDS: methylPREDNISolone INJ 125 MG/2 ML VIAL (J2930) IV SCH ×2 (05:01→11:53)
[2016-06-08 05:14] LABS: MEAN CORPUSCULAR HEMOGLOBIN 27.3 pg (27.0-33.0); MEAN CORPUSCULAR HGB CONC 31.9 g/dl (32.0-36.5); MEAN CORPUSCULAR VOLUME 85.7 fl (80.0-96.0); RED CELL DISTRIBUTION WIDTH 15.3 % (11.5-14.5); WHITE BLOOD COUNT 12.1 K/mm3 (4.0-10.0)
[2016-06-08 05:31] LABS: CALCIUM LEVEL 8.5 MG/DL (8.8-10.2); CREATININE FOR GFR 1.54 MG/DL (0.70-1.30); GLOMERULAR FILTRATION RATE 46.7 (>42); MAGNESIUM LEVEL 2.7 MG/DL (1.8-2.4); POTASSIUM SERUM 5.1 MEQ/L (3.5-5.1)
[2016-06-08] MEDS: HumaLOG INSULIN (NovoLOG) PER UNIT SC SCH ×4 (07:39→20:57)
[2016-06-08] MEDS: TIOTROPIUM INHALER/CAPSULE (SPIRIVA) INH SCH (08:30)
[2016-06-08] MEDS: SYMBICORT 160/4.5MCG INHALER 6GM INH SCH ×2 (08:30→20:06)
[2016-06-08] MEDS: OMEPRAZOLE 20 MG CAP PO SCH (08:42)
[2016-06-08] MEDS: MULTIVITAMINS/MINERALS THERAP 1 TAB PO SCH (08:43)
[2016-06-08] MEDS: VALSARTAN 40MG TABLET (DIOVAN) PO SCH ×2 (08:43→20:43)
[2016-06-08] MEDS: ISOSORBIDE MON. (IMDUR) 30 MG XR TAB PO SCH (08:44)
[2016-06-08] MEDS: guaiFENesin ER 600 MG TAB PO SCH ×2 (08:44→20:43)
[2016-06-08] MEDS: MIRALAX *UNIT DOSE* 17GM PACKET PO SCH (08:45)
[2016-06-08] MEDS: ASPIRIN 81 MG ENTERIC TAB PO SCH (08:45)
[2016-06-08] MEDS: SENOKOT S TAB PO SCH ×2 (08:45→20:43)
[2016-06-08] MEDS: FERROUS SULFATE 325MG TAB PO SCH (08:45)
[2016-06-08] MEDS: PARoxetine 20 MG TAB PO SCH (08:45)
[2016-06-08] MEDS: CLOPIDOGREL 75 MG TAB PO SCH (08:45)
[2016-06-08] MEDS: NICOTINE 14 MG/24 HR TRANSDERMAL TD SCH (08:46)
[2016-06-08] MEDS: CARVedilol 3.125 MG TAB PO SCH ×2 (10:36→20:44)
[2016-06-08] MEDS: AZITHROMYCIN INJ 500 MG, VIAL MATE ADAPTER 1 EACH in D5W 250 ML IV SCH (11:52)
[2016-06-08] MEDS: cefTRIAXone SOD 2 GM in D5W MINI-BAG PLUS 50 ML IV SCH (13:26)
[2016-06-08] MEDS ORDERED: FUROSEMIDE 20 MG/2 ML VIAL (J1940) IV ONE (19:15)
--- NOTE | 2016-06-08 20:02 | IPN ---
DATE: 06/08/2016 The patient seen and examined. No acute events overnight. Denies any fevers or chills, chest pain, pressure or discomfort. Continued to have mild dyspnea. VITAL SIGNS: Temperature 98.4, pulse 79, respirations 24, blood pressure 119/56, pulse oximetry 100% on 2 liters nasal cannula. LABORATORY: WBC 12.1, hemoglobin and hematocrit 11.1 over 34.9. Platelet 459. Chemistry: Sodium 138, potassium 5.1, chloride 100. Bicarbonate 33, BUN 37, creatinine 1.54. Magnesium 2.7. PHYSICAL EXAMINATION: General: The patient alert and oriented times three. Mild dyspnea. Conversational. HEENT: Normocephalic, atraumatic. PULMONARY: Bilateral wheeze. Poor air movement. Distant respiratory sound. CARDIAC: Regular, S1, S2. ABDOMEN: Soft, hypoactive. Nontender. Inguinal hernia, large right sided, reducible. Nontender. EXTREMITIES: No edema bilateral lower extremities. ASSESSMENT AND PLAN: This is a 76-year-old male patient with underlying medical history of chronic obstructive pulmonary disease (COPD), poor compliance with villous adenoma of the colon, coronary arterial disease with coronary artery bypass graft (CABG), chronic anxiety, chronic kidney disease (CKD), cerebrovascular accident (CVA), renal cell carcinoma with right nephrectomy, smoking, dyslipidemia, gastroesophageal reflux disease (GERD), admitted for hypercarbic respiratory failure secondary to acute COPD exacerbation. 1. Acute hypercarbic respiratory failure secondary to acute COPD exacerbation, possibly also due to mucus plugging versus community acquired bacterial pneumonia. Respiratory panel appreciated. Sputum culture, blood culture, C-reactive protein, azithromycin, Rocephin. Patient weaned off BiPAP. ABG appreciated. Diet has been advanced. CT angio negative for pulmonary embolism (PE). Continue Solu-Medrol. Taper as tolerated. Symbicort, Spiriva, DuoNebs. Case discussed with Dr. Vivas. 2. Coronary arterial disease with elevation of cardiac enzymes. Cardiology, Dr. Pak consulted. The patient used to see Dr. Zhong. Cardiac enzymes trend to peak. Aspirin and Plavix added to the regimen. Continue statin. Angiotensin II receptor blockers (ARB) and beta roe, nitrates also has been added by Dr. Pak. EKGs appreciated. The patient denies any chest pain. Echocardiogram is appreciated. Ejection fraction 20% with global hypokinesis. 3. Congestive heart failure with systolic and diastolic heart failure. Systolic and diastolic dysfunction. Ejection fraction of 20%. ARBs have been added as well as Imdur, beta blockers. Strict Intake and output (I and O), daily weight. Will start the patient on Lasix to see how the patient tolerates. Aspirin, Plavix and statin, monitor blood pressure. 4. Acute on chronic renal insufficiency. Patient with right nephrectomy secondary to renal cell carcinoma. Followup BUN and creatinine. Likely possible to contrast nephropathy versus cardiorenal. Followup BUN and creatinine. Strict I and O, daily weights. 5. Hyperglycemia. Prediabetes. A1c appreciated. Followup fingersticks. Likely also secondary to steroids. 6. Smoking. Counseling provided. Nicotine patch. 7. Anxiety. Continue home medications. 8. Depression. Continue home medications. 9. Gastroesophageal reflux disease (GERD). Continue proton pump inhibitor (PPI). 10. Cerebrovascular accident (CVA). Continue aspirin, Plavix, statin. 11. Poor compliance complicating care. 12. Dyslipidemia. Continue statin. 13. Deep venous thrombosis (DVT) prophylaxis. Heparin subcutaneously. DISPOSITION PLANNING: Poor prognosis. Code status discussed with patient and family. The patient would like to be FULL CODE at this time. Patient [facility] Family Services ([facility]FS) consulted. Physical therapy.
[2016-06-08] MEDS: ATORVASTATIN 20 MG TAB PO SCH (20:42)
[2016-06-08] MEDS: FAMOTIDINE 20 MG TAB PO SCH (20:59)
--- NOTE | 2016-06-08 21:19 | EDDOCDS ---
Nurse's Notes [facility] Name: Josephine Silvestre Age: 76 yrs Sex: Male : 1940 Arrival Date: 06/06/2016 Time: 04:58 Bed 2 Private MD: Diagnosis: Acute and chronic respiratory failure;Chronic obstructive pulmonary disease with acute lower respiratory infection Presentation: 06/06 05:01 Presenting complaint: EMS states: Patient called EMS for increased SOB, upon EMS mgs arrival patient was in tripod position in his wheelchair. Patient received albuterol Atrovent and regular albuterol nebulizer treatment en route as well as 125 mg Solu-Medrol. Patients SP 02 was 72% upon EMS arrival, currently in 90's. FSBS 226 mg/dl. Adult Sepsis Screening: The patient does not have new or worsening altered mentation. Patient has a respiratory rate of greater than or equal to 22 (1 point). Systolic blood pressure is greater than 100. Patient has a qSOFA score of 1- Negative Sepsis Screen. Suicide/Homicide risk assessment- the patient denies having any suicidal and/or homicidal ideations and does not present with any other emotional, behavioral or mental health complaints. Status: Patient is not a vice president of consulting services or dependent. Transition of care: patient was not received from another setting of care. 05:01 Acuity: FLIP Level 2 mgs 05:01 Method Of Arrival: Ambulance mgs Triage Assessment: 05:01 General: Appears uncomfortable, Behavior is cooperative. Pain: Denies pain. The patient mgs is triaged at the bedside. See Assessment in Nurses Notes section of ED record. Neurological: Level of Consciousness is awake, alert. Cardiovascular: Capillary refill < 3 seconds Heart tones S1 S2 present Rhythm is sinus tachycardia No ectopy. Respiratory: Onset: The symptoms/episode began/occurred this morning, Airway is patent Respiratory effort is labored, accessory muscle use Respiratory pattern is tachypnea Breath sounds with rhonchi bilaterally. Breath sounds are diminished bilaterally. Breath sounds with wheezes expiratory bilaterally. 05:08 Derm: Skin is pale. mgs Historical: - Allergies: BENZODIAZEPINESreported reaction to unknown benzodiazepine; GABAPENTIN; - Home Meds: 1. DOK 100 mg oral tab 1 tab 2 times per day 2. atorvastatin 40 mg oral tab once daily 3. prednisone 10 mg Oral tab once daily 4. Paxil 20 mg Oral tab 1 tab once daily 5. Xanax 0.25 mg Oral tab 1 tab 3 times per day for Anxiety 6. omeprazole 20 mg Oral cpDR 2 caps 2 times per day 7. theophylline 400 mg Oral TbER 1 tab once daily 8. Combivent Inhl Unknown every 6 hours 9. symbicort 160-4.5 twice a day 10. Oxygen 2.0-2.5 L continuous - PMHx: cancer, kidney; Cataracts; colon polyps; COPD; - Social history: Smoking status: Patient uses tobacco products, heavy tobacco smoker. No barriers to communication noted, The patient speaks fluent Estonian. - Family history: Not pertinent. - : The pt / caregiver states he / she is not on anticoagulants. Home medication list is obtained from [employer] import data, pill bottles. - Exposure Risk Screening:: None identified. Screenin:11 Screening information is obtained from the patient. Fall risk: At risk due to age. mgs Assistance ADL's: requires no assistance with activities of daily living. Abuse/DV Screen: The patient / caregiver reports he/she is: not in a situation that causes fear, pain or injury. Nutritional screening: No deficits noted. home support is adequate. 15:17 Advance Directives: There is. dsf Assessment: 05:12 General: Please see triage assessment. mgs 05:42 General: Appears uncomfortable. Neurological: Level of Consciousness is awake. mgs Cardiovascular: Capillary refill < 3 seconds Rhythm is sinus tachycardia No ectopy. Respiratory: Airway is patent Respiratory effort is labored, Respiratory pattern is tachypnea. Derm: Skin is pale. 05:57 General: After speaking with Dr Luevano the patient stated that while he would want to mgs have CPR performed if it were needed he would not want to be intubated, Dr Luevano aware. 06:00 General: Appears uncomfortable, Behavior is. Neurological: Level of Consciousness is mgs awake, alert, Oriented to person, place, time. Cardiovascular: Capillary refill < 3 seconds. Respiratory: Airway is patent Respiratory effort is even, labored, Respiratory pattern is tachypnea. 06:42 General: Appears uncomfortable, Behavior is. General: Appears to be sleeping. Behavior mgs is. Cardiovascular: Capillary refill < 3 seconds. Respiratory: Airway is patent Respiratory effort is even, labored, Respiratory pattern is tachypnea. 07:09 General: Appears in no apparent distress, comfortable, Behavior is drowsy. Pain: Denies bcj pain. Cardiovascular: Rhythm is sinus rhythm. Respiratory: Airway is patent Respiratory effort is even, labored, Respiratory pattern is tachypnea. Derm: Skin is dusky, pink. 07:09 Respiratory: Breath sounds are diminished bilaterally. bcj 08:51 General: Appears in no apparent distress, comfortable, Behavior is cooperative. Pain: bcj Denies pain. Cardiovascular: Rhythm is sinus rhythm. Derm: Skin is dusky, pink. 09:34 General: Appears in no apparent distress, comfortable, Behavior is cooperative. Pain: bcj Denies pain. Neurological: Level of Consciousness is awake, alert, Oriented to person, place, Speech is normal. Respiratory: Airway is patent Respiratory effort is even, labored, Respiratory pattern is regular. Derm: Skin is dusky, pink. 12:43 General: Appears in no apparent distress, comfortable, Behavior is cooperative. Pain: bcj Denies pain. Cardiovascular: Rhythm is sinus rhythm. Respiratory: Airway is patent Respiratory effort is even, labored, Respiratory pattern is regular. Derm: Skin is dusky, pink. 14:02 General: Appears in no apparent distress, comfortable, Behavior is cooperative. bcj Cardiovascular: Rhythm is sinus rhythm. 18:12 General: Appears in no apparent distress, comfortable, Behavior is cooperative. Pain: dsf Denies pain. Cardiovascular: Rhythm is sinus rhythm. Respiratory: Airway is patent. Derm: Skin is dusky, pink. 19:30 General: Pt sitting on side of bed. No apparent distress. Aware of plan for ICU ld5 admission. Denies any needs at this time. Will continue to monitor. Pain: Denies pain. Neurological: Level of Consciousness is awake, alert. Respiratory: Airway is patent Respiratory effort is even. GI: Abdomen is non- distended Bowel sounds present X 4 quads. Denies nausea. 19:58 General: Appears in no apparent distress, Behavior is cooperative. Pain: Denies pain. ld5 Neurological: Level of Consciousness is awake, alert. Respiratory: Airway is patent. Vital Signs: 05:04 BP 183 / 92 LA Sitting (auto/reg); Pulse 120; Resp 28 S; Temp 97.0(TE); Pulse Ox 97% ; cln 05:04 BP 183 / 92 (auto/); mgs 05:05 Pulse Ox 97% ; mgs 05:15 BP 186 / 116 (auto/); mgs 05:15 Pulse Ox 96% ; mgs 05:16 Pulse 125 MON; Pulse Ox 95% ; mgs 05:17 BP 177 / 86 (auto/); mgs 05:30 Pulse Ox 96% on 40% BiPAP; mgs 05:33 BP 93 / 65 (auto/); mgs 05:33 Pulse 126 MON; Resp 33; Pulse Ox 98% on 40% BiPAP; mgs 05:39 BP 131 / 93 (auto/); mgs 05:39 Pulse 122 MON; Resp 32; Pulse Ox 98% on 40% BiPAP; mgs 05:47 BP 135 / 72 (auto/); mgs 05:47 Pulse 113 MON; Pulse Ox 99% on 40% BiPAP; mgs 06:02 BP 106 / 58 (auto/); mgs 06:02 Pulse 106 MON; Pulse Ox 99% on 40% BiPAP; mgs 06:30 Temp 98.6(TE); cln 06:32 BP 117 / 58 (auto/); mgs 06:32 Pulse 93 MON; Resp 22; Pulse Ox 99% on 30% BiPAP; mgs 07:17 BP 115 / 59 (auto/); bcj 07:17 Pulse 91 MON; Pulse Ox 93% ; bcj 07:32 BP 111 / 57 (auto/); bcj 07:32 Pulse 90 MON; Pulse Ox 93% ; bcj 07:37 Weight 48.5 kg (M); bcj 08:02 BP 117 / 59 (auto/); bcj 08:02 Pulse 87 MON; bcj 08:17 BP 136 / 68 (auto/); bcj 08:17 Pulse 94 MON; bcj 08:32 BP 123 / 61 (auto/); bcj 08:32 Pulse 92 MON; Pulse Ox 93% ; bcj 08:47 BP 122 / 66 (auto/); bcj 08:47 Pulse 88 MON; Pulse Ox 99% ; bcj 09:02 BP 110 / 55 (auto/); bcj 09:02 Pulse 83 MON; Pulse Ox 97% ; bcj 09:17 BP 112 / 60 (auto/); bcj 09:17 Pulse 89 MON; Pulse Ox 95% ; bcj 09:32 BP 116 / 66 (auto/); bcj 09:32 Pulse 88 MON; bcj 09:47 BP 119 / 57 (auto/); bcj 09:47 Pulse 88 MON; bcj 10:02 BP 129 / 62 (auto/); bcj 10:02 Pulse 91 MON; Pulse Ox 92% ; bcj 10:17 BP 112 / 59 (auto/); bcj 10:17 Pulse 84 MON; Pulse Ox 97% ; bcj 10:32 BP 118 / 62 (auto/); bcj 10:32 Pulse 82 MON; Pulse Ox 95% ; bcj 10:47 BP 120 / 84 (auto/); bcj 10:47 Pulse 83 MON; bcj 11:02 BP 140 / 68 (auto/); bcj 11:02 Pulse 84 MON; bcj 11:17 BP 127 / 62 (auto/); bcj 11:17 Pulse 83 MON; bcj 11:32 BP 115 / 60 (auto/); bcj 11:32 Pulse 81 MON; bcj 11:47 BP 110 / 56 (auto/); bcj 11:47 Pulse 79 MON; bcj 12:02 BP 115 / 55 (auto/); bcj 12:02 Pulse 79 MON; bcj 12:17 BP 136 / 84 (auto/); bcj 12:17 Pulse 86 MON; bcj 12:32 BP 131 / 76 (auto/); bcj 12:32 Pulse 95 MON; bcj 12:47 BP 133 / 68 (auto/); bcj 12:47 Pulse 83 MON; bcj 13:02 BP 131 / 70 (auto/); bcj 13:02 Pulse 84 MON; bcj 13:17 BP 118 / 76 (auto/); bcj 13:17 Pulse 83 MON; Pulse Ox 99% ; bcj 13:32 BP 119 / 67 (auto/); bcj 13:32 Pulse 80 MON; Pulse Ox 98% ; bcj 13:47 BP 108 / 63 (auto/); bcj 13:47 Pulse 77 MON; Pulse Ox 99% ; bcj 15:17 BP 155 / 74 (auto/); dsf 15:17 Pulse 76 MON; dsf 15:32 BP 157 / 75 (auto/); dsf 15:32 Pulse 78 MON; dsf 15:47 BP 129 / 67 (auto/); dsf 15:47 Pulse 81 MON; dsf 16:02 BP 121 / 66 (auto/); dsf 16:02 Pulse 78 MON; dsf 16:17 BP 140 / 72 (auto/); dsf 16:17 Pulse 82 MON; dsf 16:32 BP 129 / 70 (auto/); dsf 16:32 Pulse 85 MON; dsf 16:47 BP 128 / 74 (auto/); dsf 16:47 Pulse 84 MON; dsf 17:02 BP 139 / 81 (auto/); dsf 17:02 Pulse 96 MON; Pulse Ox 75% ; dsf 17:17 BP 136 / 74 (auto/); dsf 17:17 Pulse Ox 99% ; dsf 17:47 BP 121 / 62 (auto/); dsf 17:47 Pulse 87 MON; dsf 18:02 BP 106 / 56 (auto/); dsf 18:02 Pulse 85 MON; Pulse Ox 96% ; dsf 19:58 BP 109 / 57; Pulse 95; Resp 22; Temp 98.1; Pulse Ox 96% ; ld5 Vitals: 07:09 Refer to monitor trend for complete vital signs trends. [facility] 07:37 Log In Time N/A - ambulance arrival. [facility] ED Course: 05:00 Patient visited by Sabrina Rose, Gardener Florist. ml3 05:00 Patient moved to Waiting ml3 05:00 Patient moved to 2 ml3 05:01 Florentin Yang RN is Primary Nurse. mgs 05:06 Patient visited by Elly Colmenares PCA. cln 05:06 Patient visited by Elly Colmenares PCA. cln 05:06 Triage Initiated mgs 05:06 Pt greeted and oriented to ED. Patient advised of names of staff involved in care, cln location of call jasmine, wait times and NPO status. Patient has correct armband on for positive identification. Placed in gown. Bed in low position. Call light in reach. Side rails up X 1. 05:12 Maintain field IV. Dressing intact. Good blood return noted. Site clean & dry. Gauge & mgs site: 20 gauge in left AC. 05:13 Patient visited by Florentin Yang RN. mgs 05:13 Evans Luevano DO is Attending Physician. cs11 05:13 Patient visited by Evans Luevano DO. cs11 05:15 -Arterial Blood Gas Sent. jh6 05:18 -Blood Culture Sent. mgs 05:18 Basic Metabolic Profile Sent. mgs 05:18 CBC with Diff Sent. mgs 05:18 Cardiac Injury Profile Sent. mgs 05:18 Troponin Sent. mgs 05:24 Notified attending ED physician of Critical lab value. ph= 7.093 and PC02 94.[address] Luevano. 05:29 Theophylline Level Sent. mgs 05:30 BIPAP: Inspiratory Pressure: 60, Expiratory Pressure: 6, Backup Rate: 10, FiO2: 40%, mgs Full face fask. 05:44 Patient visited by Florentin Yang,SUPRIYA. mgs 06:01 Patient visited by Florentin Yang RN. mgs 06:05 -Arterial Blood Gas Sent. jh6 06:24 [facility] Payment Agreement was scanned into [employer] and attached to record. hs2 06:30 Patient visited by Elly Colmenares PCA. cln 06:43 Patient visited by Florentin Yang,SUPRIYA. mgs 07:09 No apparent distress. Resting quietly. Awaiting bed assignment. bcj 07:09 The patient / caregiver is instructed regarding the plan of care and ED course. Cardiac bcj monitor on. Pulse ox on. NIBP on. 07:09 IV is intact. Labs drawn. (by ED staff). Sent per order to lab. BIPAP: Inspiratory bcj Pressure: 16, Expiratory Pressure: 6, Backup Rate: 10, FiO2: 30%, Full face fask. 07:12 Patient visited by Sarabjit Heard RN. bcj 07:27 Attending Physician role handed off by Evans Luevano DO pc 07:27 Camron Flores MD is Attending Physician. pc 07:27 Rosy Garcia is Hospitalizing Provider. pc 07:38 Patient visited by Sarabjit Heard RN. bcj 08:07 Chest, 1 View Returned. EDMS 08:08 ARTERIAL BLOOD GAS Sent. pc 08:40 EKG-ADULT Returned. EDMS 08:51 Appears to be sleeping. Awaiting bed assignment. bcj 08:51 IV is intact. bcj 08:53 Patient visited by Sarabjit Heard RN. bcj 09:34 No apparent distress. Resting quietly. Awaiting bed assignment. bcj 09:38 Patient visited by Sarabjit Heard, RN. bcj 09:56 CT ANGIO CHEST Returned. EDMS 12:43 No apparent distress. Resting quietly. Awaiting bed assignment. bcj 12:43 IV is intact. O2 via nasal cannula \T\ 4L/min. bcj 12:45 Patient visited by Sarabjit Heard, RN. bcj 14:05 Patient visited by Sarabjit Heard, RN. bcj 15:03 Patient moved to Admit Hold pc 15:17 IV. dsf 18:05 RESPIRATORY PANEL Sent. bcj 18:47 Patient visited by Sammi Wallace,RN. dsf 19:22 Patient moved to 2 apr 19:59 Patient visited by Gianna Moyer,SUPRIYA. ld5 19:59 No procedures done that require assistance. 5 06/07 13:17 T-Sheet-- Draft Copy was scanned into [employer] and attached to record. 13:17 ECG/EKG was scanned into [employer] and attached to record. gb Administered Medications: 06/06 05:28 Drug: Dexamethasone 12 mg [dexamethasone 4 mg/mL injection solution] Route: IV; Rate: mgs bolus; Site: left forearm; 05:37 Drug: Albuterol-Ipratropium 1 neb [ipratropium-albuterol 0.5 mg-3 mg(2.5 mg base)/3 mL jh6 nebulization soln (1 neb)] Route: Nebulizer; 05:57 Drug: Albuterol-Ipratropium 1 neb [ipratropium-albuterol 0.5 mg-3 mg(2.5 mg base)/3 mL jh6 nebulization soln (1 neb)] Route: Nebulizer; 06:18 Drug: Albuterol-Ipratropium 1 neb [ipratropium-albuterol 0.5 mg-3 mg(2.5 mg base)/3 mL jh6 nebulization soln (1 neb)] Route: Nebulizer; RT: 05:15 ABG's drawn from right radial artery pressure held for 5 minutes no bleeding noted jh6 pressure bandage applied specimen sent pt. tolerated well. 05:15 O2 via nasal cannula \T\ 4L/min. jh6 05:15 Respiratory: Airway is patent Respiratory effort is labored, Use of accessory muscles jh6 noted. Respiratory pattern is tachypnea Breath sounds are diminished in right upper lobe, left upper lobe, right middle lobe, left lower lobe, right lower lobe, left posterior upper lobe, right posterior upper lobe, left posterior lower lobe, right posterior middle lobe and right posterior lower lobe Breath sounds with wheezes in right upper lobe, left upper lobe, right middle lobe, left posterior upper lobe, right posterior upper lobe and right posterior middle lobe. 05:31 BIPAP: Inspiratory Pressure: 16, Expiratory Pressure: 6, Backup Rate: 10, FiO2: 40%, jh6 Full face fask. 05:38 Initial Med Neb Given as ordered Patient was instructed and evaluated on procedure jh6 Patient tolerated procedure well without adverse effect. Respiratory: Airway is patent Respiratory effort is labored, Use of accessory muscles noted. w/ retractions, Respiratory pattern is tachypnea Breath sounds are diminished in right upper lobe, left upper lobe, right middle lobe, left lower lobe and right lower lobe Breath sounds with wheezes in right upper lobe, left upper lobe, right middle lobe, left lower lobe and right lower lobe at expiration. 05:45 Respiratory: Breath sounds are coarse in right upper lobe, left upper lobe, right jh6 middle lobe, left lower lobe and right lower lobe Breath sounds are diminished in right upper lobe, left upper lobe, right middle lobe, left lower lobe and right lower lobe. 05:57 Subsequent Med Neb Given as ordered Patient was reinforced on procedure Patient jh6 tolerated procedure well without adverse effect. Respiratory: Airway is patent Respiratory effort is even, labored, Respiratory pattern is regular Breath sounds are coarse in right upper lobe, right middle lobe and right lower lobe Breath sounds are diminished in right upper lobe, left upper lobe, right middle lobe, left lower lobe and right lower lobe. 06:05 ABG's drawn from left radial artery pressure held for 5 minutes no bleeding noted jh6 pressure bandage applied specimen sent pt. tolerated well. 06:18 Subsequent Med Neb Given as ordered Patient was reinforced on procedure Patient jh6 tolerated procedure well without adverse effect. Respiratory: Airway is patent Respiratory effort is even, labored, Respiratory pattern is regular Breath sounds are coarse in right upper lobe, left upper lobe, right middle lobe, left lower lobe and right lower lobe Breath sounds are diminished in right upper lobe, left upper lobe, right middle lobe, left lower lobe and right lower lobe. 06:30 Respiratory: Airway is patent Respiratory effort is even, labored, Respiratory pattern jh6 is regular Breath sounds are coarse in right upper lobe, left upper lobe, right middle lobe, left lower lobe and right lower lobe Breath sounds are diminished in right upper lobe, left upper lobe, right middle lobe, left lower lobe and right lower lobe. 07:44 ABG's drawn from right radial artery pressure held for 5 minutes no bleeding noted kt1 pressure bandage applied specimen sent pt. tolerated well. 14:00 ABG's drawn from left radial artery allens test done and positive pressure held for 5 ac1 minutes no bleeding noted pressure bandage applied specimen sent pt. tolerated well. 18:13 ABG's drawn from right brachial artery pressure held for 5 minutes no bleeding noted ac1 pressure bandage applied specimen sent pt. tolerated well. Order Results: Lab Order: -Arterial Blood Gas; SPEC'M 06/06/16 05:10 Test: ABG pH (ARTERIAL); Value: 7.093; Range: 7.350-7.450; Abnormal: Critical Low; Units: UNITS; Status: F Test: ABG PARTIAL PRESSURE CO2; Value: 94.9; Range: 35.0-45.0; Abnormal: Above upper panic limits; Units: mmHg; Status: F Test: ABG PARTIAL PRESSURE O2; Value: 173.7; Range: 75.0-100.0; Abnormal: Above high normal; Units: mmHg; Status: F Test: ABG TOTAL CO2; Value: 31.3; Range: 23.0-31.0; Abnormal: Above high normal; Units: MEQ/L; Status: F Test: ABG HCO3; Value: 28.3; Range: 22.0-26.0; Abnormal: Above high normal; Units: MEQ/L; Status: F Test: ABG BASE EXCESS; Value: -3.7; Range: -2.0-2.0; Abnormal: Below low normal; Status: F Test: ABG STANDARD HCO3; Value: 21.4; Range: 22.0-26.0; Abnormal: Below low normal; Units: MEQ/L; Status: F Test: ABG O2 SATURATION; Value: 98.7; Range: 95.0-99.0; Units: %; Status: F Test: ABG DEVICE; Value: NASAL DREW; Status: F Lab Order: Basic Metabolic Profile; SPEC'M 06/06/16 05:17 Test: GLUCOSE, FASTING; Value: 239; Range: 83-110; Abnormal: Above high normal; Units: MG/DL; Status: F Test: BLOOD UREA NITROGEN; Value: 20; Range: 7-18; Abnormal: Above high normal; Units: MG/DL; Status: F Test: CREATININE FOR GFR; Value: 1.42; Range: 0.70-1.30; Abnormal: Above high normal; Units: MG/DL; Status: F Test: GLOMERULAR FILTRATION RATE; Value: 51.3; Range: >42; Status: F Test: SODIUM LEVEL; Value: 140; Range: 136-145; Units: MEQ/L; Status: F Test: POTASSIUM SERUM; Value: 4.9; Range: 3.5-5.1; Units: MEQ/L; Status: F Test: CHLORIDE LEVEL; Value: 104; Range: 98-107; Units: MEQ/L; Status: F Test: CARBON DIOXIDE LEVEL; Value: 32; Range: 21-32; Units: MEQ/L; Status: F Test: ANION GAP; Value: 4; Range: 8-16; Abnormal: Below low normal; Units: MEQ/L; Status: F Test: CALCIUM LEVEL; Value: 8.7; Range: 8.8-10.2; Abnormal: Below low normal; Units: MG/DL; Status: F Test Note: ; Units are mL/min/1.73 m2 Chronic Kidney Disease Staging per NKF: Stage I & II GFR >=60 Normal to Mildly Decreased Stage III GFR 30-59 Moderately Decreased Stage IV GFR 15-29 Severely Decreased Stage V GFR <15 Very Little GFR Left ESRD GFR <15 on DRYERMAN/WOMAN Lab Order: CBC with Diff; SPEC'M 06/06/16 05:17 Test: WHITE BLOOD COUNT; Value: 17.9; Range: 4.0-10.0; Abnormal: Above high normal; Units: K/mm3; Status: F Test: RED BLOOD COUNT; Value: 4.56; Range: 4.30-6.10; Units: M/mm3; Status: F Test: HEMOGLOBIN; Value: 12.0; Range: 14.0-18.0; Abnormal: Below low normal; Units: g/dl; Status: F Test: HEMATOCRIT; Value: 40.3; Range: 42.0-52.0; Abnormal: Below low normal; Units: %; Status: F Test: MEAN CORPUSCULAR VOLUME; Value: 88.4; Range: 80.0-96.0; Units: fl; Status: F Test: MEAN CORPUSCULAR HEMOGLOBIN; Value: 26.3; Range: 27.0-33.0; Abnormal: Below low normal; Units: pg; Status: F Test: MEAN CORPUSCULAR HGB CONC; Value: 29.7; Range: 32.0-36.5; Abnormal: Below low normal; Units: g/dl; Status: F Test: RED CELL DISTRIBUTION WIDTH; Value: 15.2; Range: 11.5-14.5; Abnormal: Above high normal; Units: %; Status: F Test: PLATELET COUNT, AUTOMATED; Value: 560; Range: 150-450; Abnormal: Above high normal; Units: k/mm3; Status: F Test: NEUTROPHILS %; Value: 67.4; Range: 36.0-66.0; Abnormal: Above high normal; Units: %; Status: F Test: LYMPH %; Value: 22.5; Range: 24.0-44.0; Abnormal: Below low normal; Units: %; Status: F Test: MONO %; Value: 5.6; Range: 0.0-5.0; Abnormal: Above high normal; Units: %; Status: F Test: EOS %; Value: 2.4; Range: 0.0-3.0; Units: %; Status: F Test: BASO %; Value: 0.8; Range: 0.0-1.0; Units: %; Status: F Test: LARGE UNSTAINED CELL %; Value: 1.3; Range: 0.0-4.0; Units: %; Status: F Test: NEUTROPHILS #; Value: 12.1; Range: 1.8-7.7; Abnormal: Above high normal; Units: K/mm3; Status: F Test: LYMPH #; Value: 4.3; Range: 1.5-4.5; Units: K/mm3; Status: F Test: MONO #; Value: 1.0; Range: 0.0-0.8; Abnormal: Above high normal; Units: K/mm3; Status: F Test: EOS #; Value: 0.4; Range: 0.0-0.50; Units: K/mm3; Status: F Test: BASO #; Value: 0.1; Range: 0.0-0.2; Units: K/mm3; Status: F Test: LARGE UNSTAINED CELL #; Value: 0.2; Range: 0.0-0.4; Units: K/mm3; Status: F Lab Order: Cardiac Injury Profile; [facility]06/06/16 05:17 Test: CPK CREATINE PHOSPHOKINASE; Value: 76; Range: 39-308; Units: U/L; Status: F Test: CK-MB VALUE MASS; Value: 5.0; Range: 0.0-3.6; Abnormal: Above high normal; Units: NG/ML; Status: F Test: MB/CK RELATIVE INDEX; Value: 6.57; Range: < OR =4; Abnormal: Above high normal; Status: F Test Note: ; DIAGNOSIS CRITERIA MMB ng/ml Relative Index (RI) NON-AMI < or = 5 N/A GALVEZ ZONE > 5 < or = 4 AMI > 5 > 4 Lab Order: Troponin; 06/06/16 05:17 Test: TROPONIN I; Value: 0.15; Range: < 0.10; Abnormal: Above high normal; Units: NG/ML; Status: F Test Note: ; Troponin I Reference Interval for [employer] LOCI: 99th Percentile= 0.00-0.045 ng/ml Risk Stratification: <= 0.10 ng/ml Decreased Risk for Adverse Clinical Events. 0.10-1.50 ng/ml Increased Risk for Adverse Clinical Events. Evaluation of additional criterion and/or repeat testing in 2-6 hours is suggested to rule out myocardial damage. >= 1.50 ng/ml Indicative of Myocardial Injury. Lab Order: Theophylline Level; 06/06/16 05:17 Test: THEOPHYLLINE LEVEL; Value: 3.2; Range: 10.0-20.0; Abnormal: Below low normal; Units: UG/ML; Status: F Lab Order: -Arterial Blood Gas; [facility]06/06/16 06:04 Test: ABG pH (ARTERIAL); Value: 7.270; Range: 7.350-7.450; Abnormal: Below low normal; Units: UNITS; Status: F Test: ABG PARTIAL PRESSURE CO2; Value: 63.1; Range: 35.0-45.0; Abnormal: Above upper panic limits; Units: mmHg; Status: F Test: ABG PARTIAL PRESSURE O2; Value: 206.5; Range: 75.0-100.0; Abnormal: Above high normal; Units: mmHg; Status: F Test: ABG TOTAL CO2; Value: 30.3; Range: 23.0-31.0; Units: MEQ/L; Status: F Test: ABG HCO3; Value: 28.3; Range: 22.0-26.0; Abnormal: Above high normal; Units: MEQ/L; Status: F Test: ABG BASE EXCESS; Value: 0.2; Range: -2.0-2.0; Status: F Test: ABG STANDARD HCO3; Value: 24.7; Range: 22.0-26.0; Units: MEQ/L; Status: F Test: ABG O2 SATURATION; Value: 99.5; Range: 95.0-99.0; Abnormal: Above high normal; Units: %; Status: F Test: ABG DEVICE; Value: NASAL DREW; Status: F Lab Order: ARTERIAL BLOOD GAS; [facility] 06/06/16 07:44 Test: ABG pH (ARTERIAL); Value: 7.318; Range: 7.350-7.450; Abnormal: Below low normal; Units: UNITS; Status: F Test: ABG PARTIAL PRESSURE CO2; Value: 56.6; Range: 35.0-45.0; Abnormal: Above high normal; Units: mmHg; Status: F Test: ABG PARTIAL PRESSURE O2; Value: 78.1; Range: 75.0-100.0; Units: mmHg; Status: F Test: ABG TOTAL CO2; Value: 30.1; Range: 23.0-31.0; Units: MEQ/L; Status: F Test: ABG HCO3; Value: 28.4; Range: 22.0-26.0; Abnormal: Above high normal; Units: MEQ/L; Status: F Test: ABG BASE EXCESS; Value: 1.3; Range: -2.0-2.0; Status: F Test: ABG STANDARD HCO3; Value: 25.6; Range: 22.0-26.0; Units: MEQ/L; Status: F Test: ABG O2 SATURATION; Value: 95.1; Range: 95.0-99.0; Units: %; Status: F Test: ABG DEVICE; Value: BIPAP; Status: F Lab Order: CARDIAC MARKER PANEL; [facility] 06/06/16 11:08 Test: CPK CREATINE PHOSPHOKINASE; Value: 81; Range: 39-308; Units: U/L; Status: F Test: CK-MB VALUE MASS; Value: 7.3; Range: 0.0-3.6; Abnormal: Above high normal; Units: NG/ML; Status: F Test: MB/CK RELATIVE INDEX; Value: 9.01; Range: < OR =4; Abnormal: Above high normal; Status: F Test: TROPONIN I; Value: 0.67; Range: < 0.10; Abnormal: High; Units: NG/ML; Status: F Test Note: ; DIAGNOSIS CRITERIA MMB ng/ml Relative Index (RI) NON-AMI < or = 5 N/A GALVEZ ZONE > 5 < or = 4 AMI > 5 > 4 Lab Order: CARDIAC MARKER PANEL; [facility] 06/06/16 17:29 Test: CPK CREATINE PHOSPHOKINASE; Value: 96; Range: 39-308; Units: U/L; Status: F Test: CK-MB VALUE MASS; Value: 8.6; Range: 0.0-3.6; Abnormal: Above high normal; Units: NG/ML; Status: F Test: MB/CK RELATIVE INDEX; Value: 8.95; Range: < OR =4; Abnormal: Above high normal; Status: F Test: TROPONIN I; Value: 1.06; Range: < 0.10; Abnormal: High; Units: NG/ML; Status: F Test Note: ; DIAGNOSIS CRITERIA MMB ng/ml Relative Index (RI) NON-AMI < or = 5 N/A GALVEZ ZONE > 5 < or = 4 AMI > 5 > 4 Lab Order: ARTERIAL BLOOD GAS; [facility] 06/06/16 13:56 Test: ABG pH (ARTERIAL); Value: 7.409; Range: 7.350-7.450; Units: UNITS; Status: F Test: ABG PARTIAL PRESSURE CO2; Value: 48.4; Range: 35.0-45.0; Abnormal: Above high normal; Units: mmHg; Status: F Test: ABG PARTIAL PRESSURE O2; Value: 83.0; Range: 75.0-100.0; Units: mmHg; Status: F Test: ABG TOTAL CO2; Value: 31.4; Range: 23.0-31.0; Abnormal: Above high normal; Units: MEQ/L; Status: F Test: ABG HCO3; Value: 29.9; Range: 22.0-26.0; Abnormal: Above high normal; Units: MEQ/L; Status: F Test: ABG BASE EXCESS; Value: 4.5; Range: -2.0-2.0; Abnormal: Above high normal; Status: F Test: ABG STANDARD HCO3; Value: 28.5; Range: 22.0-26.0; Abnormal: Above high normal; Units: MEQ/L; Status: F Test: ABG O2 SATURATION; Value: 96.6; Range: 95.0-99.0; Units: %; Status: F Lab Order: RESPIRATORY PANEL; [facility] 06/06/16 18:04 Test: RESPIRATORY PANEL; Value: RP PANEL RESULT NEGATIVE by PCR; Status: F Test: RESPIRATORY PANEL; Value: Comments:; Status: F Test Note: ; This respiratory PCR panel detects Influenza A H1, H3 and 2009 H1 viruses, Influenza B virus, Respiratory syncytial virus, Human metapneumovirus, Parainfluenza virus 1, 2, 3 and 4, Adenovirus, Rhinovirus/Enterovirus, Coronavirus HKU1, NL63, OC43 and 229E, Bordetella pertussis, Mycoplasma pneumoniae and Chlamydia pneumoniae. Lab Order: C REACTIVE PROTEIN QUANTITATIV; [facility] 06/06/16 11:08 Test: C REACTIVE PROTEIN QUANTITATIV; Value: 1.24; Range: 0.00-0.30; Abnormal: Above high normal; Units: MG/DL; Status: F Lab Order: HEMOGLOBIN A1C; [facility] 06/06/16 17:29 Test: HEMOGLOBIN A1c; Value: 6.2; Range: 4.5-6.2; Units: %; Status: F Test: ESTIMATED AVERAGE GLUCOSE; Value: 131; Range: 60-110; Abnormal: Above high normal; Units: MG/DL; Status: F Lab Order: ARTERIAL BLOOD GAS; [facility]06/06/16 18:07 Test: ABG pH (ARTERIAL); Value: 7.405; Range: 7.350-7.450; Units: UNITS; Status: F Test: ABG PARTIAL PRESSURE CO2; Value: 41.3; Range: 35.0-45.0; Units: mmHg; Status: F Test: ABG PARTIAL PRESSURE O2; Value: 57.8; Range: 75.0-100.0; Abnormal: Below low normal; Units: mmHg; Status: F Test: ABG TOTAL CO2; Value: 26.6; Range: 23.0-31.0; Units: MEQ/L; Status: F Test: ABG HCO3; Value: 25.3; Range: 22.0-26.0; Units: MEQ/L; Status: F Test: ABG BASE EXCESS; Value: 0.5; Range: -2.0-2.0; Status: F Test: ABG STANDARD HCO3; Value: 24.8; Range: 22.0-26.0; Units: MEQ/L; Status: F Test: ABG O2 SATURATION; Value: 91.5; Range: 95.0-99.0; Abnormal: Below low normal; Units: %; Status: F Lab Order: Fingerstick Blood Sugar; [facility] 06/06/16 17:39 Test: BEDSIDE GLUCOSE; Value: 145; Range: 83-110; Abnormal: Above high normal; Units: MG/DL; Status: F Radiology Order: Chest, 1 View Test: Chest, 1 View REASON FOR EXAMINATION: Shortness of Breath; Clinical: Shortness of breath.; ; Comparison: 05/31/2016.; ; Findings:; Mediastinum and cardiac silhouette are stable and within normal limits for; portable technique. Lung mederos demonstrate diffuse chronic interstitial changes; and blunting to the diaphragmatic surfaces. Trace right basilar atelectasis; cannot be excluded. No definite effusion. No pneumothorax. Skeletal structures; intact.; ; Impression:; Chronic stable changes. 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; : 1940 Requested By: EVANS LUEVANO; Order Number: [id number] Reading MD: Jessica Lemon; Measurements; Intervals Stewart; Rate: 121 P: 75; SC: 154 QRS: 18; QRSD: 130 T: 105; QT: 321; QTc: 456; Interpretive Statements; SINUS TACHYCARDIA; MODERATE INTRAVENTRICULAR CONDUCTION DELAY; ST DEVIATION AND MODERATE T-WAVE ABNORMALITY, CONSIDER ISCHEMIA; CLINICAL CORRELATION; Electronically Signed On 06-06-2016 8:17:28 EST by Jessica Lemon; Radiology Order: CT ANGIO CHEST Test: CT ANGIO CHEST REASON FOR EXAMINATION: r/o pe; Clinical: Acute chest pain.; ; Technique: Axial contrast enhanced images from the thoracic inlet to the upper; abdomen using 100 ml Isovue 370 intravenous contrast material with coronal and; sagittal re-formations.; ; Findings: Satisfactory enhancement of the pulmonary vasculature is achieved and; no filling defects are identified to suggest pulmonary embolus. Opacification; and mucous plugging to the right lower lobe bronchi is appreciated with trace; atelectasis. Diffuse chronic COPD and emphysematous changes are appreciated. No; further consolidation, nodule or mass lesion. No pleural effusion/reaction or; pneumothorax. Mediastinum demonstrates atherosclerotic changes to the thoracic; aorta and coronary arteries without pericardial effusion. Mild cardiomegaly; suggested. No obvious adenopathy. Surrounding musculoskeletal structures; demonstrate age-related changes without focal osseous abnormality.; ; ; ; Impression:; 1. No evidence for pulmonary embolus.; 2. Mucous plugging to the right lower lobe bronchi with associated mild; atelectasis.; ; ; Signed by; Garret Lynn MD 06/06/2016 09:32 A; Outcome: 07:28 Decision to Hospitalize by Provider. pc 19:59 Discharge Assessment: Patient awake, alert and oriented x 3. No cognitive and/or ld5 functional deficits noted. Patient verbalized understanding of disposition instructions. patient administered narcotics - no. The following High Risk Discharge criteria are identified: Yes, ICu admit. Admitted to ICU accompanied by nurse, accompanied by tech, family with patient, via stretcher, with oxygen, on monitor, with chart. Condition: stable. CT Study completed. Property :Personal belongings accompany Pt. 20:18 Patient left the ED. ld5 Signatures: Dispatcher [employer] EDMS Camron Flores MD MD pc Johnson, Bruce, RN RN jose Valentine, Darling Weller, RN RN keith Baird, Milagro, Reg Reg gb Codi,Linh,RT RT ac1 Arlette Lopez kt1 Rose, BayleeButchMarce, Gardener Florist Unit ml3 Gianna Moyer RN RN adriane5 Sammi Wallace,RN RN Adams Cox 6 Evans Luevano, DO cs11 Florentin YangRN RN mgs Clarita Monroe, Reg Reg hs2 Elly Colmenares, AMANDA EDDY CURRENT INSPECTOR cln Corrections: (The following items were deleted from the chart) 05:11 05:11 Home medication list is obtained from pill bottles, mgs mgs 05:38 05:33 Pulse 126bpm; Monitor; Pulse Ox 98%; mgs mgs 06:07 06:05 Respiratory: 6 6 06:43 06:32 Pulse 93bpm; Monitor; Pulse Ox 99% 02 30% BiPAP; mgs mgs Chart Complete MTDD
--- NOTE | 2016-06-08 21:19 | EDDOCDS ---
Physician Documentation [facility] Name: Eliel Silvestre Age: 76 yrs Sex: Male : 1940 Arrival Date: 06/06/2016 Time: 04:58 Bed 2 Private MD: Disposition: 06/06/16 07:28 Hospitalization ordered by Rosy Garcia for Inpatient Admission. Preliminary diagnosis are Acute and chronic respiratory failure, Chronic obstructive pulmonary disease with acute lower respiratory infection. - Bed requested for M ICU. - Status is Inpatient Admission. ld5 - Condition is Stable. - Problem is new. - Symptoms have improved. Historical: - Allergies: BENZODIAZEPINESreported reaction to unknown benzodiazepine; GABAPENTIN; - Home Meds: 1. DOK 100 mg oral tab 1 tab 2 times per day 2. atorvastatin 40 mg oral tab once daily 3. prednisone 10 mg Oral tab once daily 4. Paxil 20 mg Oral tab 1 tab once daily 5. Xanax 0.25 mg Oral tab 1 tab 3 times per day for Anxiety 6. omeprazole 20 mg Oral cpDR 2 caps 2 times per day 7. theophylline 400 mg Oral TbER 1 tab once daily 8. Combivent Inhl Unknown every 6 hours 9. symbicort 160-4.5 twice a day 10. Oxygen 2.0-2.5 L continuous - PMHx: cancer, kidney; Cataracts; colon polyps; COPD; - Social history: Smoking status: Patient uses tobacco products, heavy tobacco smoker. No barriers to communication noted, The patient speaks fluent Hungarian. - Family history: Not pertinent. - : The pt / caregiver states he / she is not on anticoagulants. Home medication list is obtained from [employer] import data, pill bottles. - Exposure Risk Screening:: None identified. Vital Signs: 06/06 05:04 BP 183 / 92 LA Sitting (auto/reg); Pulse 120; Resp 28 S; Temp 97.0(TE); Pulse Ox 97% ; cln 05:04 BP 183 / 92 (auto/); mgs 05:05 Pulse Ox 97% ; mgs 05:15 BP 186 / 116 (auto/); mgs 05:15 Pulse Ox 96% ; mgs 05:16 Pulse 125 MON; Pulse Ox 95% ; mgs 05:17 BP 177 / 86 (auto/); mgs 05:30 Pulse Ox 96% on 40% BiPAP; mgs 05:33 BP 93 / 65 (auto/); mgs 05:33 Pulse 126 MON; Resp 33; Pulse Ox 98% on 40% BiPAP; mgs 05:39 BP 131 / 93 (auto/); mgs 05:39 Pulse 122 MON; Resp 32; Pulse Ox 98% on 40% BiPAP; mgs 05:47 BP 135 / 72 (auto/); mgs 05:47 Pulse 113 MON; Pulse Ox 99% on 40% BiPAP; mgs 06:02 BP 106 / 58 (auto/); mgs 06:02 Pulse 106 MON; Pulse Ox 99% on 40% BiPAP; mgs 06:30 Temp 98.6(TE); cln 06:32 BP 117 / 58 (auto/); mgs 06:32 Pulse 93 MON; Resp 22; Pulse Ox 99% on 30% BiPAP; mgs 07:17 BP 115 / 59 (auto/); bcj 07:17 Pulse 91 MON; Pulse Ox 93% ; bcj 07:32 BP 111 / 57 (auto/); bcj 07:32 Pulse 90 MON; Pulse Ox 93% ; bcj 07:37 Weight 48.5 kg / 106.92 lbs (M); bcj 08:02 BP 117 / 59 (auto/); bcj 08:02 Pulse 87 MON; bcj 08:17 BP 136 / 68 (auto/); bcj 08:17 Pulse 94 MON; bcj 08:32 BP 123 / 61 (auto/); bcj 08:32 Pulse 92 MON; Pulse Ox 93% ; bcj 08:47 BP 122 / 66 (auto/); bcj 08:47 Pulse 88 MON; Pulse Ox 99% ; bcj 09:02 BP 110 / 55 (auto/); bcj 09:02 Pulse 83 MON; Pulse Ox 97% ; bcj 09:17 BP 112 / 60 (auto/); bcj 09:17 Pulse 89 MON; Pulse Ox 95% ; bcj 09:32 BP 116 / 66 (auto/); bcj 09:32 Pulse 88 MON; bcj 09:47 BP 119 / 57 (auto/); bcj 09:47 Pulse 88 MON; bcj 10:02 BP 129 / 62 (auto/); bcj 10:02 Pulse 91 MON; Pulse Ox 92% ; bcj 10:17 BP 112 / 59 (auto/); bcj 10:17 Pulse 84 MON; Pulse Ox 97% ; bcj 10:32 BP 118 / 62 (auto/); bcj 10:32 Pulse 82 MON; Pulse Ox 95% ; bcj 10:47 BP 120 / 84 (auto/); bcj 10:47 Pulse 83 MON; bcj 11:02 BP 140 / 68 (auto/); bcj 11:02 Pulse 84 MON; bcj 11:17 BP 127 / 62 (auto/); bcj 11:17 Pulse 83 MON; bcj 11:32 BP 115 / 60 (auto/); bcj 11:32 Pulse 81 MON; bcj 11:47 BP 110 / 56 (auto/); bcj 11:47 Pulse 79 MON; bcj 12:02 BP 115 / 55 (auto/); bcj 12:02 Pulse 79 MON; bcj 12:17 BP 136 / 84 (auto/); bcj 12:17 Pulse 86 MON; bcj 12:32 BP 131 / 76 (auto/); bcj 12:32 Pulse 95 MON; bcj 12:47 BP 133 / 68 (auto/); bcj 12:47 Pulse 83 MON; bcj 13:02 BP 131 / 70 (auto/); bcj 13:02 Pulse 84 MON; bcj 13:17 BP 118 / 76 (auto/); bcj 13:17 Pulse 83 MON; Pulse Ox 99% ; bcj 13:32 BP 119 / 67 (auto/); bcj 13:32 Pulse 80 MON; Pulse Ox 98% ; bcj 13:47 BP 108 / 63 (auto/); bcj 13:47 Pulse 77 MON; Pulse Ox 99% ; bcj 15:17 BP 155 / 74 (auto/); dsf 15:17 Pulse 76 MON; dsf 15:32 BP 157 / 75 (auto/); dsf 15:32 Pulse 78 MON; dsf 15:47 BP 129 / 67 (auto/); dsf 15:47 Pulse 81 MON; dsf 16:02 BP 121 / 66 (auto/); dsf 16:02 Pulse 78 MON; dsf 16:17 BP 140 / 72 (auto/); dsf 16:17 Pulse 82 MON; dsf 16:32 BP 129 / 70 (auto/); dsf 16:32 Pulse 85 MON; dsf 16:47 BP 128 / 74 (auto/); dsf 16:47 Pulse 84 MON; dsf 17:02 BP 139 / 81 (auto/); dsf 17:02 Pulse 96 MON; Pulse Ox 75% ; dsf 17:17 BP 136 / 74 (auto/); dsf 17:17 Pulse Ox 99% ; dsf 17:47 BP 121 / 62 (auto/); dsf 17:47 Pulse 87 MON; dsf 18:02 BP 106 / 56 (auto/); dsf 18:02 Pulse 85 MON; Pulse Ox 96% ; dsf 19:58 BP 109 / 57; Pulse 95; Resp 22; Temp 98.1; Pulse Ox 96% ; ld5 MDM: 05:06 -Arterial Blood Gas Ordered. EDMS 05:07 -Blood Culture (Adults Only), peripheral from different site, or from device/port/PICC keith etc. if present ordered. 05:07 Power System Dispatcher/Pulse Ox/q 15 min VS ordered. apr 05:07 IV Saline Lock ordered. apr 05:07 Oxygen at 4L/Min NC or Home dosage ordered. apr 05:07 Rhythm Strip to chart ordered. apr 05:08 Chest, 1 View Ordered. EDMS 05:08 -Blood Culture Ordered. EDMS 05:08 Basic Metabolic Profile Ordered. EDMS 05:08 CBC with Diff Ordered. EDMS 05:08 Cardiac Injury Profile Ordered. EDMS 05:08 Troponin Ordered. EDMS 05:08 ECG WITH READING ER PHYS+CARDIAG ordered. EDMS 05:20 Dexamethasone 12 mg IV at bolus once ordered. cs11 05:21 -Blood Culture (Adults Only), peripheral from different site, or from device/port/PICC ml3 etc. if present complete. 05:21 Call Respiratory ordered. cs11 05:21 BIPAP INPATIENT+RESP-VENT ordered. EDMS 05:22 Albuterol-Ipratropium 1 neb Nebulizer every 20 minutes x3 ordered. cs11 05:22 BLOOD CULTURES Ordered. EDMS 05:26 Theophylline Level Ordered. EDMS 05:37 Call Respiratory complete. ml3 05:52 -Arterial Blood Gas Reviewed. cs11 05:52 Basic Metabolic Profile Reviewed. cs11 05:52 CBC with Diff Reviewed. cs11 05:52 Cardiac Injury Profile Reviewed. cs11 05:52 Troponin Reviewed. cs11 05:58 Call Respiratory ordered. jh6 05:58 Call Respiratory complete. jh6 05:59 -Arterial Blood Gas Ordered. EDMS 06:14 Financial registration complete. hs2 06:24 [facility] Payment Agreement was scanned into [employer] and attached to record. hs2 06:57 -Arterial Blood Gas Reviewed. cs11 07:31 Redraw ABG (put time in details section) ordered. pc 07:31 BED REQUEST+ADM ordered. EDMS 07:32 Redraw ABG (put time in details section) complete. lbd 07:36 ARTERIAL BLOOD GAS Ordered. EDMS 08:18 ARTERIAL BLOOD GAS Reviewed. pc 08:18 Chest, 1 View Reviewed. pc 08:49 CARDIAC MARKER PANEL Ordered. EDMS 08:49 CARDIAC MARKER PANEL Ordered. EDMS 08:50 ARTERIAL BLOOD GAS Ordered. EDMS 08:50 RESPIRATORY PANEL Ordered. EDMS 08:50 SPUTUM CULTURE AND GRAM STAIN Ordered. EDMS 08:52 BIPAP INPATIENT ordered. EDMS 08:53 Admission / Observation Status ordered. EDMS 08:53 ECHOCARD,DOPPLER/COLOR FLOW ordered. EDMS 08:53 ELECTROCARDIOGRAM ADULT ordered. EDMS 08:53 CT ANGIO CHEST Ordered. EDMS 11:17 C REACTIVE PROTEIN QUANTITATIV Ordered. EDMS 13:29 HEMOGLOBIN A1C Ordered. EDMS 15:04 ARTERIAL BLOOD GAS Ordered. EDMS 15:17 COPD DIET ordered. EDMS 18:06 Fingerstick Blood Sugar Ordered. EDMS 19:32 C REACTIVE PROTEIN QUANTITATIV Ordered. EDMS 19:32 COMPLETE BLOOD COUNT Ordered. EDMS 19:32 BASIC METABOLIC PROFILE Ordered. EDMS 19:32 MAGNESIUM LEVEL Ordered. EDMS 20:31 MRSA SCREEN Ordered. EDMS 06/07 13:17 T-Sheet-- Draft Copy was scanned into [employer] and attached to record. gb 13:17 ECG/EKG was scanned into [employer] and attached to record. gb Administered Medications: 06/06 05:28 Drug: Dexamethasone 12 mg [dexamethasone 4 mg/mL injection solution] Route: IV; Rate: mgs bolus; Site: left forearm; 05:37 Drug: Albuterol-Ipratropium 1 neb [ipratropium-albuterol 0.5 mg-3 mg(2.5 mg base)/[address] [facility] nebulization soln (1 neb)] Route: Nebulizer; 05:57 Drug: Albuterol-Ipratropium 1 neb [ipratropium-albuterol 0.5 mg-3 mg(2.5 mg base)/3 mL jh6 nebulization soln (1 neb)] Route: Nebulizer; 06:18 Drug: Albuterol-Ipratropium 1 neb [ipratropium-albuterol 0.5 mg-3 mg(2.5 mg base)/3 mL jh6 nebulization soln (1 neb)] Route: Nebulizer; Signatures: Dispatcher [employer] EDMS Camron Flores MD MD pc Daly, Linda, Drop Pit Worker Unit lbd Sarabjit Heard, RN RN bcDarling Rausch RN Milagro Austin, Reg Reg gb Sabrina Rose, Drop Pit Worker Unit ml3 Gianna Moyer RN RN ld5 Adams Zafar jh6 Checo Merritt DO DO cs11 Florentin Yang RN RN s Dima Madrigal RN RN [facility] Clarita Monroe, Reg Reg hs2 The chart was reviewed and I authenticate all verbal orders and agree with the evaluation and treatment provided.Corrections: (The following items were deleted from the chart) 05:11 05:11 Home medication list is obtained from pill bottles, mgs mgs 11:16 08:50 C REACTIVE PROTEIN QUANTITATIV ordered. EDMS EDMS 15:04 08:53 NPO DIET ordered. EDMS EDMS Attachments: 06:24 [facility] Payment Agreement hs2 06/07 13:17 T-Sheet-- Draft Copy gb 13:17 ECG/EKG gb Chart Complete MTDD
--- NOTE | 2016-06-08 21:19 | EDDOCDS ---
Physician Documentation [facility] Name: Eliel Silvestre Age: 76 yrs Sex: Male : 1940 Arrival Date: 06/06/2016 Time: 04:58 Bed 2 Private MD: Disposition: 06/06/16 07:28 Hospitalization ordered by Rosy Garcia for Inpatient Admission. Preliminary diagnosis are Acute and chronic respiratory failure, Chronic obstructive pulmonary disease with acute lower respiratory infection. - Bed requested for M ICU. - Status is Inpatient Admission. ld5 - Condition is Stable. - Problem is new. - Symptoms have improved. Historical: - Allergies: BENZODIAZEPINESreported reaction to unknown benzodiazepine; GABAPENTIN; - Home Meds: 1. DOK 100 mg oral tab 1 tab 2 times per day 2. atorvastatin 40 mg oral tab once daily 3. prednisone 10 mg Oral tab once daily 4. Paxil 20 mg Oral tab 1 tab once daily 5. Xanax 0.25 mg Oral tab 1 tab 3 times per day for Anxiety 6. omeprazole 20 mg Oral cpDR 2 caps 2 times per day 7. theophylline 400 mg Oral TbER 1 tab once daily 8. Combivent Inhl Unknown every 6 hours 9. symbicort 160-4.5 twice a day 10. Oxygen 2.0-2.5 L continuous - PMHx: cancer, kidney; Cataracts; colon polyps; COPD; - Social history: Smoking status: Patient uses tobacco products, heavy tobacco smoker. No barriers to communication noted, The patient speaks fluent Japanese. - Family history: Not pertinent. - : The pt / caregiver states he / she is not on anticoagulants. Home medication list is obtained from [employer] import data, pill bottles. - Exposure Risk Screening:: None identified. Vital Signs: 06/06 05:04 BP 183 / 92 LA Sitting (auto/reg); Pulse 120; Resp 28 S; Temp 97.0(TE); Pulse Ox 97% ; cln 05:04 BP 183 / 92 (auto/); mgs 05:05 Pulse Ox 97% ; mgs 05:15 BP 186 / 116 (auto/); mgs 05:15 Pulse Ox 96% ; mgs 05:16 Pulse 125 MON; Pulse Ox 95% ; mgs 05:17 BP 177 / 86 (auto/); mgs 05:30 Pulse Ox 96% on 40% BiPAP; mgs 05:33 BP 93 / 65 (auto/); mgs 05:33 Pulse 126 MON; Resp 33; Pulse Ox 98% on 40% BiPAP; mgs 05:39 BP 131 / 93 (auto/); mgs 05:39 Pulse 122 MON; Resp 32; Pulse Ox 98% on 40% BiPAP; mgs 05:47 BP 135 / 72 (auto/); mgs 05:47 Pulse 113 MON; Pulse Ox 99% on 40% BiPAP; mgs 06:02 BP 106 / 58 (auto/); mgs 06:02 Pulse 106 MON; Pulse Ox 99% on 40% BiPAP; mgs 06:30 Temp 98.6(TE); cln 06:32 BP 117 / 58 (auto/); mgs 06:32 Pulse 93 MON; Resp 22; Pulse Ox 99% on 30% BiPAP; mgs 07:17 BP 115 / 59 (auto/); bcj 07:17 Pulse 91 MON; Pulse Ox 93% ; bcj 07:32 BP 111 / 57 (auto/); bcj 07:32 Pulse 90 MON; Pulse Ox 93% ; bcj 07:37 Weight 48.5 kg / 106.92 lbs (M); bcj 08:02 BP 117 / 59 (auto/); bcj 08:02 Pulse 87 MON; bcj 08:17 BP 136 / 68 (auto/); bcj 08:17 Pulse 94 MON; bcj 08:32 BP 123 / 61 (auto/); bcj 08:32 Pulse 92 MON; Pulse Ox 93% ; bcj 08:47 BP 122 / 66 (auto/); bcj 08:47 Pulse 88 MON; Pulse Ox 99% ; bcj 09:02 BP 110 / 55 (auto/); bcj 09:02 Pulse 83 MON; Pulse Ox 97% ; bcj 09:17 BP 112 / 60 (auto/); bcj 09:17 Pulse 89 MON; Pulse Ox 95% ; bcj 09:32 BP 116 / 66 (auto/); bcj 09:32 Pulse 88 MON; bcj 09:47 BP 119 / 57 (auto/); bcj 09:47 Pulse 88 MON; bcj 10:02 BP 129 / 62 (auto/); bcj 10:02 Pulse 91 MON; Pulse Ox 92% ; bcj 10:17 BP 112 / 59 (auto/); bcj 10:17 Pulse 84 MON; Pulse Ox 97% ; bcj 10:32 BP 118 / 62 (auto/); bcj 10:32 Pulse 82 MON; Pulse Ox 95% ; bcj 10:47 BP 120 / 84 (auto/); bcj 10:47 Pulse 83 MON; bcj 11:02 BP 140 / 68 (auto/); bcj 11:02 Pulse 84 MON; bcj 11:17 BP 127 / 62 (auto/); bcj 11:17 Pulse 83 MON; bcj 11:32 BP 115 / 60 (auto/); bcj 11:32 Pulse 81 MON; bcj 11:47 BP 110 / 56 (auto/); bcj 11:47 Pulse 79 MON; bcj 12:02 BP 115 / 55 (auto/); bcj 12:02 Pulse 79 MON; bcj 12:17 BP 136 / 84 (auto/); bcj 12:17 Pulse 86 MON; bcj 12:32 BP 131 / 76 (auto/); bcj 12:32 Pulse 95 MON; bcj 12:47 BP 133 / 68 (auto/); bcj 12:47 Pulse 83 MON; bcj 13:02 BP 131 / 70 (auto/); bcj 13:02 Pulse 84 MON; bcj 13:17 BP 118 / 76 (auto/); bcj 13:17 Pulse 83 MON; Pulse Ox 99% ; bcj 13:32 BP 119 / 67 (auto/); bcj 13:32 Pulse 80 MON; Pulse Ox 98% ; bcj 13:47 BP 108 / 63 (auto/); bcj 13:47 Pulse 77 MON; Pulse Ox 99% ; bcj 15:17 BP 155 / 74 (auto/); dsf 15:17 Pulse 76 MON; dsf 15:32 BP 157 / 75 (auto/); dsf 15:32 Pulse 78 MON; dsf 15:47 BP 129 / 67 (auto/); dsf 15:47 Pulse 81 MON; dsf 16:02 BP 121 / 66 (auto/); dsf 16:02 Pulse 78 MON; dsf 16:17 BP 140 / 72 (auto/); dsf 16:17 Pulse 82 MON; dsf 16:32 BP 129 / 70 (auto/); dsf 16:32 Pulse 85 MON; dsf 16:47 BP 128 / 74 (auto/); dsf 16:47 Pulse 84 MON; dsf 17:02 BP 139 / 81 (auto/); dsf 17:02 Pulse 96 MON; Pulse Ox 75% ; dsf 17:17 BP 136 / 74 (auto/); dsf 17:17 Pulse Ox 99% ; dsf 17:47 BP 121 / 62 (auto/); dsf 17:47 Pulse 87 MON; dsf 18:02 BP 106 / 56 (auto/); dsf 18:02 Pulse 85 MON; Pulse Ox 96% ; dsf 19:58 BP 109 / 57; Pulse 95; Resp 22; Temp 98.1; Pulse Ox 96% ; ld5 MDM: 05:06 -Arterial Blood Gas Ordered. EDMS 05:07 -Blood Culture (Adults Only), peripheral from different site, or from device/port/PICC keith etc. if present ordered. 05:07 Senior Procurement Manager/Pulse Ox/q 15 min VS ordered. apr 05:07 IV Saline Lock ordered. apr 05:07 Oxygen at 4L/Min NC or Home dosage ordered. apr 05:07 Rhythm Strip to chart ordered. apr 05:08 Chest, 1 View Ordered. EDMS 05:08 -Blood Culture Ordered. EDMS 05:08 Basic Metabolic Profile Ordered. EDMS 05:08 CBC with Diff Ordered. EDMS 05:08 Cardiac Injury Profile Ordered. EDMS 05:08 Troponin Ordered. EDMS 05:08 ECG WITH READING ER PHYS+CARDIAG ordered. EDMS 05:20 Dexamethasone 12 mg IV at bolus once ordered. cs11 05:21 -Blood Culture (Adults Only), peripheral from different site, or from device/port/PICC ml3 etc. if present complete. 05:21 Call Respiratory ordered. cs11 05:21 BIPAP INPATIENT+RESP-VENT ordered. EDMS 05:22 Albuterol-Ipratropium 1 neb Nebulizer every 20 minutes x3 ordered. cs11 05:22 BLOOD CULTURES Ordered. EDMS 05:26 Theophylline Level Ordered. EDMS 05:37 Call Respiratory complete. ml3 05:52 -Arterial Blood Gas Reviewed. cs11 05:52 Basic Metabolic Profile Reviewed. cs11 05:52 CBC with Diff Reviewed. cs11 05:52 Cardiac Injury Profile Reviewed. cs11 05:52 Troponin Reviewed. cs11 05:58 Call Respiratory ordered. jh6 05:58 Call Respiratory complete. jh6 05:59 -Arterial Blood Gas Ordered. EDMS 06:14 Financial registration complete. hs2 06:24 [facility] [place] Payment Agreement was scanned into [employer] and attached to record. hs2 06:57 -Arterial Blood Gas Reviewed. cs11 07:31 Redraw ABG (put time in details section) ordered. pc 07:31 BED REQUEST+ADM ordered. EDMS 07:32 Redraw ABG (put time in details section) complete. lbd 07:36 ARTERIAL BLOOD GAS Ordered. EDMS 08:18 ARTERIAL BLOOD GAS Reviewed. pc 08:18 Chest, 1 View Reviewed. pc 08:49 CARDIAC MARKER PANEL Ordered. EDMS 08:49 CARDIAC MARKER PANEL Ordered. EDMS 08:50 ARTERIAL BLOOD GAS Ordered. EDMS 08:50 RESPIRATORY PANEL Ordered. EDMS 08:50 SPUTUM CULTURE AND GRAM STAIN Ordered. EDMS 08:52 BIPAP INPATIENT ordered. EDMS 08:53 Admission / Observation Status ordered. EDMS 08:53 ECHOCARD,DOPPLER/COLOR FLOW ordered. EDMS 08:53 ELECTROCARDIOGRAM ADULT ordered. EDMS 08:53 CT ANGIO CHEST Ordered. EDMS 11:17 C REACTIVE PROTEIN QUANTITATIV Ordered. EDMS 13:29 HEMOGLOBIN A1C Ordered. EDMS 15:04 ARTERIAL BLOOD GAS Ordered. EDMS 15:17 COPD DIET ordered. EDMS 18:06 Fingerstick Blood Sugar Ordered. EDMS 19:32 C REACTIVE PROTEIN QUANTITATIV Ordered. EDMS 19:32 COMPLETE BLOOD COUNT Ordered. EDMS 19:32 BASIC METABOLIC PROFILE Ordered. EDMS 19:32 MAGNESIUM LEVEL Ordered. EDMS 20:31 MRSA SCREEN Ordered. EDMS 06/07 13:17 T-Sheet-- Draft Copy was scanned into [employer] and attached to record. gb 13:17 ECG/EKG was scanned into [employer] and attached to record. gb Administered Medications: 06/06 05:28 Drug: Dexamethasone 12 mg [dexamethasone 4 mg/mL injection solution] Route: IV; Rate: mgs bolus; Site: left forearm; 05:37 Drug: Albuterol-Ipratropium 1 neb [ipratropium-albuterol 0.5 mg-3 mg(2.5 mg base)/3 mL [facility] nebulization soln (1 neb)] Route: Nebulizer; 05:57 Drug: Albuterol-Ipratropium 1 neb [ipratropium-albuterol 0.5 mg-3 mg(2.5 mg base)/3 mL jh6 nebulization soln (1 neb)] Route: Nebulizer; 06:18 Drug: Albuterol-Ipratropium 1 neb [ipratropium-albuterol 0.5 mg-3 mg(2.5 mg base)/3 mL jh6 nebulization soln (1 neb)] Route: Nebulizer; Signatures: Dispatcher [employer] EDMS Camron Flores MD MD pc Daly, Linda, Solar Installation Manager Unit lbd Sarabjit Heard, RN RN bcDarling Rausch RN Milagro Austin, Reg Reg gb Sbarina Rose, Solar Installation Manager Unit ml3 Gianna Moyer RN RN ld5 Adams Zafar jh6 Checo Merritt DO DO cs11 Florentin Yang RN RN s Dima Madrigal RN RN [facility] Clarita Monroe, Reg Reg hs2 The chart was reviewed and I authenticate all verbal orders and agree with the evaluation and treatment provided.Corrections: (The following items were deleted from the chart) 05:11 05:11 Home medication list is obtained from pill bottles, mgs mgs 11:16 08:50 C REACTIVE PROTEIN QUANTITATIV ordered. EDMS EDMS 15:04 08:53 NPO DIET ordered. EDMS EDMS Attachments: 06:24 [facility] Payment Agreement hs2 06/07 13:17 T-Sheet-- Draft Copy gb 13:17 ECG/EKG gb Chart Complete MTDD
--- NOTE | 2016-06-08 21:29 | IPN ---
DATE: 06/08/2016 Mr. Eliel Silvestre was seen this evening, he was laying supine in bed in no acute distress at rest but with mild shortness of breath at rest. It seemed that his respiratory condition, his breathing has improved significantly. There is no report of fever or chills. He has no orthopnea. He denies any dizziness or palpitations. No bleeding reported. He does complain of heartburn. On physical examination, the patient is alert and awake and his vital signs this evening revealed a blood pressure of 119/56 with a pulse of 76, respirations 24, and his maximum temperature is 98.4 degrees Fahrenheit with an oxygen saturation of 99-100% on 2 liters nasal cannula. Examination of the head, ears, eyes, nose and throat: Atraumatic. Neck is supple with extended jugular. The lungs did not reveal any wheezing or crackles. The heart examination revealed normal S1 and S2 without gallops. The point of maximum impulse (PMI) is displaced inferiorly and laterally. There is no rub. There is a systolic murmur grade 1-2 over 6 at the apex with some minimal radiation to the axilla. Abdomen is unremarkable. Extremities reveal no pedal edema. Neurologic examination grossly is negative for focal deficit. LABORATORY: CBC done today revealed a WBC of 12.1, hemoglobin 11.1, hematocrit 34.9 and platelets 459,000. BMP revealed a sodium of 138, potassium 5.1, chloride 100, CO2 33, BUN 37, creatinine 1.54, GFR 46.7, fasting glucose 143 and calcium 8.5. Serum magnesium 2.7. IMPRESSION: 1. Status post respiratory failure secondary to exacerbation of chronic obstructive pulmonary disease (COPD) versus in the setting of decompensated congestive heart failure. The patient seems to be stable, and his breathing has improved significantly. He was found to have a severely depressed global left ventricular systolic function and yesterday, he was started on a small dose of valsartan. He also was started today on carvedilol. He will be monitored. He does have a history of severe COPD/emphysema. Tomorrow, I will discuss with him about a LifeVest upon discharge even though I am not sure that he would benefit. I am not sure about his life expectancy based on his underlying lung disease. Otherwise, he will have benefited from an automatic implantable cardioverter defibrillator (AICD) if his left ventricular ejection fraction (LVEF) does not improve with treatment. 2. Tomorrow, I will add a small dose of furosemide but will need to monitor closely his BUN and creatinine. It was a pleasure to participate in the care of . Eliel Silvestre for his underlying cardiac condition. I will continue to monitor him along with you while in the hospital. At the present time, he appears to be stable and his condition has improved.
[2016-06-08] MEDS: ALPRAZolam 0.25 MG TAB PO PRN (23:49)
[2016-06-09] VITALS (9 sets, daily range): BP systolic 101–144; BP diastolic 56–72
[2016-06-09] MEDS ORDERED: methylPREDNISolone INJ 125 MG/2 ML VIAL (J2930) IV SCH
[2016-06-09] MEDS: IPRATROPIUM 0.5MG/ALBUTEROL 2.5MG INH SOL UD 3ML (DUONEB)(J7620) NEB SCH ×4 (02:11→21:00)
[2016-06-09 04:28] LABS: MEAN CORPUSCULAR HEMOGLOBIN 26.2 pg (27.0-33.0); MEAN CORPUSCULAR HGB CONC 30.7 g/dl (32.0-36.5); MEAN CORPUSCULAR VOLUME 85.2 fl (80.0-96.0); RED CELL DISTRIBUTION WIDTH 15.2 % (11.5-14.5); WHITE BLOOD COUNT 12.2 K/mm3 (4.0-10.0)
[2016-06-09 04:56] LABS: CALCIUM LEVEL 8.5 MG/DL (8.8-10.2); CREATININE FOR GFR 1.5 MG/DL (0.70-1.30); GLOMERULAR FILTRATION RATE 48.2 (>42); MAGNESIUM LEVEL 2.6 MG/DL (1.8-2.4); POTASSIUM SERUM 4.7 MEQ/L (3.5-5.1)
[2016-06-09] MEDS: HEPARIN SOD (PORCINE) 5000 UNITS/ML VIAL SC SCH ×3 (05:05→22:06)
[2016-06-09] MEDS: HumaLOG INSULIN (NovoLOG) PER UNIT SC SCH ×4 (07:10→21:00)
[2016-06-09] MEDS: TIOTROPIUM INHALER/CAPSULE (SPIRIVA) INH SCH (08:04)
[2016-06-09] MEDS: SYMBICORT 160/4.5MCG INHALER 6GM INH SCH ×2 (08:05→21:00)
[2016-06-09] MEDS: NICOTINE 14 MG/24 HR TRANSDERMAL TD SCH (09:02)
[2016-06-09] MEDS: MIRALAX *UNIT DOSE* 17GM PACKET PO SCH (09:03)
[2016-06-09] MEDS: MULTIVITAMINS/MINERALS THERAP 1 TAB PO SCH (09:04)
[2016-06-09] MEDS: guaiFENesin ER 600 MG TAB PO SCH ×2 (09:05→22:08)
[2016-06-09] MEDS: ISOSORBIDE MON. (IMDUR) 30 MG XR TAB PO SCH (09:05)
[2016-06-09] MEDS: ASPIRIN 81 MG ENTERIC TAB PO SCH (09:05)
[2016-06-09] MEDS: CARVedilol 3.125 MG TAB PO SCH ×2 (09:05→22:07)
[2016-06-09] MEDS: FAMOTIDINE 20 MG TAB PO SCH ×2 (09:05→22:06)
[2016-06-09] MEDS: FERROUS SULFATE 325MG TAB PO SCH (09:06)
[2016-06-09] MEDS: SENOKOT S TAB PO SCH ×2 (09:06→22:07)
[2016-06-09] MEDS: CLOPIDOGREL 75 MG TAB PO SCH (09:06)
[2016-06-09] MEDS: AZITHROMYCIN 250 MG TAB PO SCH (09:06)
[2016-06-09] MEDS: PARoxetine 20 MG TAB PO SCH (09:07)
[2016-06-09] MEDS: FUROSEMIDE 20 MG TAB PO SCH (09:07)
[2016-06-09] MEDS: VALSARTAN 40MG TABLET (DIOVAN) PO SCH ×2 (11:36→22:08)
[2016-06-09] MEDS ORDERED: methylPREDNISolone INJ 40 MG/1 ML VIAL (J2920) IV SCH (12:00)
[2016-06-09] MEDS: cefTRIAXone SOD 2 GM in D5W MINI-BAG PLUS 50 ML IV SCH (12:59)
[2016-06-09] MEDS: ATORVASTATIN 20 MG TAB PO SCH (22:06)
[2016-06-10] VITALS (8 sets, daily range): BP systolic 91–129; BP diastolic 50–66; O2SAT 97
[2016-06-10] MEDS ORDERED: methylPREDNISolone INJ 40 MG/1 ML VIAL (J2920) IV SCH
[2016-06-10] MEDS: ALPRAZolam 0.25 MG TAB PO PRN (00:20)
[2016-06-10] MEDS: IPRATROPIUM 0.5MG/ALBUTEROL 2.5MG INH SOL UD 3ML (DUONEB)(J7620) NEB SCH ×5 (02:59→23:07)
[2016-06-10 05:13] LABS: MEAN CORPUSCULAR HEMOGLOBIN 27.3 pg (27.0-33.0); MEAN CORPUSCULAR HGB CONC 31.5 g/dl (32.0-36.5); MEAN CORPUSCULAR VOLUME 86.6 fl (80.0-96.0); RED CELL DISTRIBUTION WIDTH 15.2 % (11.5-14.5); WHITE BLOOD COUNT 12.8 K/mm3 (4.0-10.0)
[2016-06-10 05:26] LABS: CALCIUM LEVEL 8.4 MG/DL (8.8-10.2); CREATININE FOR GFR 1.44 MG/DL (0.70-1.30); GLOMERULAR FILTRATION RATE 50.5 (>42); MAGNESIUM LEVEL 2.6 MG/DL (1.8-2.4); POTASSIUM SERUM 4.6 MEQ/L (3.5-5.1)
[2016-06-10 06:00] LABS: ABG BASE EXCESS 3.2 (-2.0-2.0); ABG HCO3 29.1 MEQ/L (22.0-26.0); ABG PARTIAL PRESSURE CO2 49.9 mmHg (35.0-45.0); ABG PARTIAL PRESSURE O2 98.1 mmHg (75.0-100.0); ABG STANDARD HCO3 27.4 MEQ/L (22.0-26.0); ABG TOTAL CO2 30.7 MEQ/L (23.0-31.0); ABG pH (ARTERIAL) 7.384 UNITS (7.350-7.450)
[2016-06-10] MEDS: HEPARIN SOD (PORCINE) 5000 UNITS/ML VIAL SC SCH ×3 (06:54→20:41)
[2016-06-10] MEDS: SYMBICORT 160/4.5MCG INHALER 6GM INH SCH ×2 (07:45→19:31)
[2016-06-10] MEDS: TIOTROPIUM INHALER/CAPSULE (SPIRIVA) INH SCH (07:45)
[2016-06-10] MEDS: SENOKOT S TAB PO SCH ×2 (08:46→20:41)
[2016-06-10] MEDS: CLOPIDOGREL 75 MG TAB PO SCH (08:46)
[2016-06-10] MEDS: guaiFENesin ER 600 MG TAB PO SCH ×2 (08:46→20:41)
[2016-06-10] MEDS: HumaLOG INSULIN (NovoLOG) PER UNIT SC SCH ×4 (08:46→20:51)
[2016-06-10] MEDS: NICOTINE 14 MG/24 HR TRANSDERMAL TD SCH (08:46)
[2016-06-10] MEDS: MULTIVITAMINS/MINERALS THERAP 1 TAB PO SCH (08:46)
[2016-06-10] MEDS: FAMOTIDINE 20 MG TAB PO SCH ×2 (08:46→20:41)
[2016-06-10] MEDS: ISOSORBIDE MON. (IMDUR) 30 MG XR TAB PO SCH (08:47)
[2016-06-10] MEDS: AZITHROMYCIN 250 MG TAB PO SCH (08:59)
[2016-06-10] MEDS: CARVedilol 3.125 MG TAB PO SCH ×2 (08:59→20:41)
[2016-06-10] MEDS: VALSARTAN 40MG TABLET (DIOVAN) PO SCH ×2 (08:59→21:30)
[2016-06-10] MEDS: MIRALAX *UNIT DOSE* 17GM PACKET PO SCH (08:59)
[2016-06-10] MEDS: FERROUS SULFATE 325MG TAB PO SCH (08:59)
[2016-06-10] MEDS: PARoxetine 20 MG TAB PO SCH (09:00)
[2016-06-10] MEDS: ASPIRIN 81 MG ENTERIC TAB PO SCH (09:00)
[2016-06-10] MEDS: FUROSEMIDE 20 MG TAB PO SCH (09:00)
--- NOTE | 2016-06-10 11:22 | IPN ---
DATE: 06/09/2016 Patient is seen and examined. Patient reported breathing much improved, continues to have mild weakness. Denies any chest pain, pressure, or discomfort. Reported breathing much better. VITAL SIGNS: Temperature 97.2, pulse 81, respirations 24, blood pressure 144/66, pulse oximetry 99% on two liters nasal cannula. LABORATORY DATA: WBC 12.2, hemoglobin and hematocrit 10.8/35.2, platelets 474. Chemistry: Sodium 140, potassium 4.7, chloride 100, bicarbonate 35, BUN 43, creatinine 1.5. PHYSICAL EXAMINATION: GENERAL: Patient alert, oriented times three, mild dyspnea, conversational, comfortable. HEENT: Normocephalic, atraumatic. PULMONARY: Mild bilateral expiratory wheeze. Poor air movement. CARDIAC: Regular rate and rhythm. Normal S1, S2. ABDOMEN: Soft. Hypoactive bowel sounds. Inguinal hernia, large, right-sided, reducible, nontender. EXTREMITIES: No edema bilateral lower extremities. ASSESSMENT AND PLAN: This is a 76-year-old male patient with underlying medical history of chronic obstructive pulmonary disease (COPD) on home oxygen, poor compliance, villous adenoma of the colon, coronary artery disease with coronary artery bypass graft (CABG), chronic anxiety, chronic kidney disease (CKD), CVA, renal cell carcinoma with right nephrectomy, smoking, dyslipidemia, gastroesophageal reflux disease (GERD), also with now congestive heart failure (CHF), ejection fraction 20%, admitted for hypercarbic respiratory failure secondary to acute chronic obstructive pulmonary disease (COPD) exacerbation. 1. Acute hypercarbic respiratory failure secondary to acute chronic obstructive pulmonary disease (COPD) exacerbation, possibly due to mucus plugging versus community-acquired bacterial pneumonia. Respiratory panel appreciated and negative. Sputum culture, blood culture, C-reactive protein. Azithromycin and Rocephin. Weaned off bilevel positive airway pressure (BiPAP). Arterial blood gas (ABG) is appreciated. Will check to see if patient qualifies for Trilogy at home. Tolerating diet. CT angio negative for pulmonary embolus (PE). Continue Solu-Medrol, taper as tolerated. Symbicort, Spiriva, DuoNebs. Case discussed with Dr. Vivas. 2. Coronary artery disease with elevation of cardiac enzymes. Dr. Pak has been consulted. Patient sees Dr. Zhong as outpatient. Cardiac enzymes trend to peak. Aspirin and Plavix has been added to the regimen. Statin, ARBs, beta blockers, nitrates has been added by Dr. Pak. Lasix diuretic has also been added as well. Patient denies any chest pain. As per Dr. Pak, likely demand ischemia secondary to severe respiratory distress. Echo shows ejection fraction 20% with global hypokinesis. 3. Congestive heart failure with diastolic and systolic dysfunction, ejection fraction (EF) of 20%. Cardiology has been consulted. Lasix has been added today. Patient has been on ARBs, beta roe, nitrates, aspirin, and Plavix for optimization. Strict intake and output, daily weight. Patient will potentially need a LifeVest, patient and family services (PFS) consulted for arrangement for a LifeVest. Monitor blood pressure. 4. Acute on chronic renal insufficiency. Patient with underlying right renal cell carcinoma with right nephrectomy. Followup BUN and creatinine. Possible contrast nephropathy versus cardiorenal. BUN and creatinine has been improved. Strict intake and output, daily weight. 5. Hyperglycemia, pre-diabetes. A1c appreciated. Insulin as per protocol. Followup finger sticks. Taper steroids. Hyperglycemia likely secondary to steroids. 6. Smoking. Counseling provided. Nicotine patch. 7. Anxiety. Continue home medication. 8. Depression. Continue home medication. 9. Gastroesophageal reflux disease (GERD). Continue proton pump inhibitor (PPI). 10. CVA. Continue aspirin, Plavix, and statin. 11. Poor compliance complicating care. 12. Dyslipidemia. Continue statin. 13. Deep venous thrombosis (DVT) prophylaxis. Heparin subcutaneous. DISPOSITION PLANNING: Poor prognosis given severe cardiopulmonary condition and chronic kidney disease (CKD). Code status was discussed with patient and family. Patient would like to be FULL CODE. Patient and family services (PFS) has been consulted for possible Trilogy, LifeVest and, as per cardiology, will eventually need automatic implantable cardioverter defibrillator (AICD). Physical therapy has been appreciated, patient cleared from physical therapy, but will need additional arrangements, given patient does not feel safe at home, via assisted living versus home with home health.
[2016-06-10] MEDS: IPRATROPIUM 0.5MG/ALBUTEROL 2.5MG INH SOL UD 3ML (DUONEB)(J7620) NEB PRN ×2 (11:47→17:15)
[2016-06-10] MEDS: cefTRIAXone SOD 2 GM in D5W MINI-BAG PLUS 50 ML IV SCH (13:58)
[2016-06-10] MEDS: predniSONE 10 MG TAB PO SCH (14:08)
[2016-06-10] MEDS: ATORVASTATIN 20 MG TAB PO SCH (20:40)
[2016-06-11] MEDS: IPRATROPIUM 0.5MG/ALBUTEROL 2.5MG INH SOL UD 3ML (DUONEB)(J7620) NEB PRN ×3 (03:32→15:49)
[2016-06-11 05:18] VITALS: BP 116/58
[2016-06-11 05:34] LABS: MEAN CORPUSCULAR HEMOGLOBIN 26.9 pg (27.0-33.0); MEAN CORPUSCULAR VOLUME 86.7 fl (80.0-96.0); RED CELL DISTRIBUTION WIDTH 15.2 % (11.5-14.5); WHITE BLOOD COUNT 10.7 K/mm3 (4.0-10.0)
[2016-06-11] MEDS: HEPARIN SOD (PORCINE) 5000 UNITS/ML VIAL SC SCH ×3 (05:42→22:55)
[2016-06-11 05:50] LABS: CALCIUM LEVEL 8.6 MG/DL (8.8-10.2); CREATININE FOR GFR 1.49 MG/DL (0.70-1.30); GLOMERULAR FILTRATION RATE 48.6 (>42); MAGNESIUM LEVEL 2.7 MG/DL (1.8-2.4); POTASSIUM SERUM 4.6 MEQ/L (3.5-5.1)
[2016-06-11 07:50] VITALS: BP 119/65
[2016-06-11] MEDS: IPRATROPIUM 0.5MG/ALBUTEROL 2.5MG INH SOL UD 3ML (DUONEB)(J7620) NEB SCH ×4 (08:01→23:54)
[2016-06-11] MEDS: TIOTROPIUM INHALER/CAPSULE (SPIRIVA) INH SCH (08:01)
[2016-06-11] MEDS: SYMBICORT 160/4.5MCG INHALER 6GM INH SCH ×2 (08:01→19:29)
[2016-06-11] MEDS: HumaLOG INSULIN (NovoLOG) PER UNIT SC SCH ×4 (08:18→21:00)
[2016-06-11] MEDS: NICOTINE 14 MG/24 HR TRANSDERMAL TD SCH (08:18)
[2016-06-11] MEDS: MIRALAX *UNIT DOSE* 17GM PACKET PO SCH (08:18)
[2016-06-11] MEDS: AZITHROMYCIN 250 MG TAB PO SCH (08:19)
[2016-06-11] MEDS: FUROSEMIDE 20 MG TAB PO SCH (08:19)
[2016-06-11] MEDS: PARoxetine 20 MG TAB PO SCH (08:19)
[2016-06-11] MEDS: predniSONE 10 MG TAB PO SCH (08:19)
[2016-06-11] MEDS: ASPIRIN 81 MG ENTERIC TAB PO SCH (08:19)
[2016-06-11] MEDS: VALSARTAN 40MG TABLET (DIOVAN) PO SCH ×2 (08:19→20:03)
[2016-06-11] MEDS: MULTIVITAMINS/MINERALS THERAP 1 TAB PO SCH (08:20)
[2016-06-11] MEDS: FAMOTIDINE 20 MG TAB PO SCH ×2 (08:20→20:03)
[2016-06-11] MEDS: SENOKOT S TAB PO SCH ×2 (08:20→20:03)
[2016-06-11] MEDS: ISOSORBIDE MON. (IMDUR) 30 MG XR TAB PO SCH (08:20)
[2016-06-11] MEDS: CARVedilol 3.125 MG TAB PO SCH ×2 (08:20→20:03)
[2016-06-11] MEDS: guaiFENesin ER 600 MG TAB PO SCH ×2 (08:20→20:03)
[2016-06-11] MEDS: CLOPIDOGREL 75 MG TAB PO SCH (08:20)
[2016-06-11] MEDS: FERROUS SULFATE 325MG TAB PO SCH (08:20)
[2016-06-11 11:34] VITALS: BP 109/60
[2016-06-11] MEDS: cefTRIAXone SOD 2 GM in D5W MINI-BAG PLUS 50 ML IV SCH (12:56)
[2016-06-11 15:43] VITALS: BP 110/50
[2016-06-11 19:33] VITALS: BP 120/53
[2016-06-11] MEDS: ATORVASTATIN 20 MG TAB PO SCH (20:03)
[2016-06-11] MEDS: ALPRAZolam 0.25 MG TAB PO PRN (22:55)
[2016-06-11 23:07] VITALS: BP 111/56
[2016-06-12] MEDS: IPRATROPIUM 0.5MG/ALBUTEROL 2.5MG INH SOL UD 3ML (DUONEB)(J7620) NEB PRN ×3 (02:15→11:51)
[2016-06-12 05:30] LABS: MEAN CORPUSCULAR HEMOGLOBIN 27.2 pg (27.0-33.0); MEAN CORPUSCULAR HGB CONC 31.4 g/dl (32.0-36.5); MEAN CORPUSCULAR VOLUME 86.5 fl (80.0-96.0); RED CELL DISTRIBUTION WIDTH 15.1 % (11.5-14.5); WHITE BLOOD COUNT 11.7 K/mm3 (4.0-10.0)
[2016-06-12 05:39] VITALS: BP 111/56
[2016-06-12 05:50] LABS: ANION GAP 4 MEQ/L (8-16); BLOOD UREA NITROGEN 43 MG/DL (7-18); CALCIUM LEVEL 8.7 MG/DL (8.8-10.2); CARBON DIOXIDE LEVEL 35 MEQ/L (21-32); CHLORIDE LEVEL 100 MEQ/L (98-107); CREATININE FOR GFR 1.59 MG/DL (0.70-1.30); GLOMERULAR FILTRATION RATE 45.1 (>42); GLUCOSE, FASTING 100 MG/DL (83-110); MAGNESIUM LEVEL 2.5 MG/DL (1.8-2.4); POTASSIUM SERUM 4.8 MEQ/L (3.5-5.1); SODIUM LEVEL 139 MEQ/L (136-145)
[2016-06-12] MEDS: HEPARIN SOD (PORCINE) 5000 UNITS/ML VIAL SC SCH ×3 (06:17→21:48)
[2016-06-12] MEDS: SYMBICORT 160/4.5MCG INHALER 6GM INH SCH ×2 (07:07→19:44)
[2016-06-12] MEDS: TIOTROPIUM INHALER/CAPSULE (SPIRIVA) INH SCH (07:07)
[2016-06-12] MEDS: IPRATROPIUM 0.5MG/ALBUTEROL 2.5MG INH SOL UD 3ML (DUONEB)(J7620) NEB SCH ×3 (07:07→19:45)
[2016-06-12] MEDS: HumaLOG INSULIN (NovoLOG) PER UNIT SC SCH ×4 (07:29→21:00)
[2016-06-12 08:00] VITALS: BP 113/51
[2016-06-12] MEDS: FERROUS SULFATE 325MG TAB PO SCH (08:55)
[2016-06-12] MEDS: predniSONE 10 MG TAB PO SCH (08:55)
[2016-06-12] MEDS: guaiFENesin ER 600 MG TAB PO SCH ×2 (08:56→21:48)
[2016-06-12] MEDS: VALSARTAN 40MG TABLET (DIOVAN) PO SCH (08:56)
[2016-06-12] MEDS: MULTIVITAMINS/MINERALS THERAP 1 TAB PO SCH (08:56)
[2016-06-12] MEDS: AZITHROMYCIN 250 MG TAB PO SCH (08:56)
[2016-06-12] MEDS: FAMOTIDINE 20 MG TAB PO SCH ×2 (08:57→21:48)
[2016-06-12] MEDS: ASPIRIN 81 MG ENTERIC TAB PO SCH (08:57)
[2016-06-12] MEDS: FUROSEMIDE 20 MG TAB PO SCH (08:57)
[2016-06-12] MEDS: MIRALAX *UNIT DOSE* 17GM PACKET PO SCH (08:57)
[2016-06-12] MEDS: CLOPIDOGREL 75 MG TAB PO SCH (08:57)
[2016-06-12] MEDS: CARVedilol 3.125 MG TAB PO SCH ×2 (08:57→21:48)
[2016-06-12] MEDS: PARoxetine 20 MG TAB PO SCH (08:57)
[2016-06-12] MEDS: ISOSORBIDE MON. (IMDUR) 30 MG XR TAB PO SCH (08:57)
[2016-06-12] MEDS: NICOTINE 14 MG/24 HR TRANSDERMAL TD SCH (08:58)
[2016-06-12] MEDS: SENOKOT S TAB PO SCH ×2 (08:58→21:48)
[2016-06-12] MEDS: traMADol 50 MG TAB PO PRN (11:46)
[2016-06-12] MEDS: cefTRIAXone SOD 2 GM in D5W MINI-BAG PLUS 50 ML IV SCH (11:48)
--- NOTE | 2016-06-12 11:48 | IPN ---
DATE: 06/06/2016 No acute events overnight. Reported comfortable. Only mild weakness. Denies any chest pain, pressure, or discomfort. VITAL SIGNS: Temperature 96.9, pulse 77, respirations 20, blood pressure 104/50, pulse oximetry 95% on 2 liters nasal cannula. LABORATORY DATA: WBC 12.8, hemoglobin and hematocrit 11.6/36.7, platelets 470. Chemistry: Sodium 140, potassium 4.6, chloride 101, bicarbonate 31, BUN 42, creatinine 1.04. PHYSICAL EXAMINATION: GENERAL: The patient is alert and oriented times three. Mild dyspnea, conversational. Comfortable. HEENT: Normocephalic, atraumatic. PULMONARY: Poor air movement. Mild expiratory wheeze. CARDIAC: Regular rate and rhythm. Normal S1, S2. ABDOMEN: Soft, hypoactive bowel sounds. Inguinal hernia, large, right sided, reducible, nontender. EXTREMITIES: No edema in bilateral lower extremities. ASSESSMENT AND PLAN: This is a 76-year-old male patient with underlying medical history of chronic obstructive pulmonary disease (COPD) on home oxygen, poor compliance, villous adenoma of the colon, coronary artery disease with coronary artery bypass graft (CABG), chronic anxiety, chronic kidney disease, CVA, renal cell carcinoma with right-sided nephrectomy, smoking, dyslipidemia, gastroesophageal reflux disease (GERD), also with congestive heart failure (CHF) with ejection fraction of 20% and admitted for hypercarbic respiratory failure secondary to acute on chronic COPD exacerbation. 1. Acute hypercarbic respiratory failure secondary to acute COPD exacerbation, possibly due to mucous plugging versus community acquired bacterial pneumonia. Respiratory panel appreciated and negative. Sputum culture, blood culture, C-reactive protein appreciated. Azithromycin, Rocephin. Wean off BiPAP. ABG appreciated. Likely, the patient will not qualify for Trilogy based on ABG. Tolerating diet. CT angiogram negative for pulmonary embolism. Continue to taper steroids. Symbicort, Spiriva, DuoNeb. Case discussed with Dr. Vivas. 2. Coronary arterial disease with elevation of cardiac enzymes. Dr. Pak has been consulted. The patient sees Dr. Zhong as outpatient. Cardiac enzymes trend to peak. Aspirin and Plavix have been added to the regimen. Statin, ARB, beta roe, nitrates added by Dr. Pak. Lasix diuretic has also been added as well. The patient denies any chest pain. As per Dr. Pak, likely demand ischemia secondary to severe respiratory distress. Echo shows ejection fraction of 20% with global hypokinesis. 3. Congestive heart failure (CHF) with diastolic and systolic dysfunction, ejection fraction of 20%. Cardiology consulted. Lasix has been added. The patient has been on ARB, beta roe, nitrate, aspirin and Plavix for optimization of cardiac function. Strict input and output and daily weight. Will potentially need a Life Vest. Patient and family services (PFS) consulted. Outpatient arrangement for AICD as per cardiology. Monitor blood pressure. 4. Acute on chronic renal insufficiency. The patient with underlying right renal cell carcinoma with right nephrectomy. Followup BUN and creatinine. Possible contrast nephropathy versus cardiorenal. BUN and creatinine have improved. Strict input and output and daily weights. 5. Hyperglycemia, prediabetic. A1/c appreciated. Hyperglycemia likely secondary to steroids. Insulin as per protocol. Followup fingersticks. Taper steroids. 6. Smoking. Counseling provided. Nicotine patch. 7. Anxiety. Continue home medications. 8. Depression. Continue home medications. 9. Gastroesophageal reflux disease (GERD). Continue proton pump inhibitor. 10. CVA. Continue aspirin, Plavix, and statin. 11. Poor compliance complicating care. 12. Dyslipidemia. Continue statin. 13. Deep vein thrombosis (DVT) prophylaxis. Heparin subcutaneously. DISPOSITION: Poor prognosis given severe cardiopulmonary conditions and chronic kidney disease. Code status discussed with the patient and family. The patient would like to be FULL CODE at this time. Patient and family services (PFS) has been consulted for Life Vest, and the patient will eventually need an AICD. Physical therapy (PT) evaluation appreciated. The patient is cleared by PT for discharge. The patient does not yet feel safe going home, will likely need services at home versus assisted living. Patient and family services (PFS) has been consulted. As of right now, baseline ABG, the patient does not qualify for Trilogy.
[2016-06-12 12:00] VITALS: BP 115/54
[2016-06-12 16:00] VITALS: BP 114/51
[2016-06-12] MEDS ORDERED: traMADol 50 MG TAB PO ONE (16:00)
--- NOTE | 2016-06-12 19:17 | IPN ---
DATE: 06/11/2016 Patient seen and examined. No acute events overnight. Reported improved respiration. Denies any fevers or chills, chest pain, pressure, or discomfort. Patient is anxious to get discharged but counseling provider, that additional setup was needed for the patient to return home safety. VITAL SIGNS: Temperature 97.2, pulse 86, respirations 20, blood pressure 110/50, pulse oximetry 98% on 2 liters nasal cannula. LABORATORY DATA: WBC 10.7, hemoglobin and hematocrit 11.7/37.7, platelets 498. Chemistry: Sodium 140, potassium 4.6, chloride 101, bicarbonate 32, BUN 43, creatinine 1.49. PHYSICAL EXAMINATION: GENERAL: The patient is alert and oriented times three. Mild dyspnea, conversational. Comfortable. HEENT: Normocephalic, atraumatic. PULMONARY: Poor air movement bilateral. Mild bilateral expiratory wheeze. CARDIAC: Regular rate and rhythm. Normal S1, S2. ABDOMEN: Soft, hypoactive bowel sounds. Inguinal hernia, large, right sided, reducible, nontender. EXTREMITIES: No edema in bilateral lower extremities. ASSESSMENT AND PLAN: This is a 76-year-old male patient with underlying medical history of chronic obstructive pulmonary disease (COPD) on home oxygen, poor compliance, history of villous adenoma of the colon, coronary artery disease with coronary artery bypass graft (CABG), chronic anxiety, chronic kidney disease, CVA, renal cell carcinoma with right-sided nephrectomy, smoking, dyslipidemia, gastroesophageal reflux disease (GERD), also with now congestive heart failure (CHF) with ejection fraction of 20% and admitted for hypercarbic respiratory failure secondary to acute on chronic COPD exacerbation. 1. Acute hypercarbic respiratory failure secondary to acute COPD exacerbation, possibly due to mucous plugging versus community acquired bacterial pneumonia. Respiratory panel appreciated and negative. Sputum culture, blood culture appreciated. C-reactive protein appreciated. Azithromycin, Rocephin. Wean off BiPAP. Oxygen blood gas appreciated. Patient's ABG showed patient is not a candidate for Trilogy. Tolerating diet. CT angiogram negative for pulmonary embolism. Continue to taper steroids. Symbicort, Spiriva, DuoNeb. Case discussed with Dr. Vivas. 2. Coronary arterial disease with elevated cardiac enzymes. Dr. Pak has been consulted. The patient sees Dr. Zhong as outpatient. Cardiac enzymes trend to peak. Aspirin and Plavix has been added to the regimen. Statin, ARB, beta roe, nitrates, Lasix has been added by Dr. Pak. Strict intake and output (I and O), daily weight. The patient denies any chest pain. Possibly demand ischemia secondary to severe respiratory distress. Echo shows ejection fraction of 20% with global hypokinesis. 3. Congestive heart failure (CHF) with diastolic and systolic dysfunction, ejection fraction of 20%. Cardiology has been consulted. Lasix has been added today as well. The patient has been on ARB, beta roe, nitrate, aspirin and Plavix for optimization. Strict I and O, daily weight. Patient will potentially need a Life Vest. Patient and family services (PFS) consulted to help make arrangements. Monitor blood pressure. 4. Acute on chronic renal insufficiency. The patient with underlying right renal cell carcinoma with right nephrectomy. Followup BUN and creatinine. Possible contrast nephropathy versus cardiorenal. BUN and creatinine has reached based. Strict I and O, daily weights. 5. Hyperglycemia, prediabetic. Likely secondary to steroids. A1c appreciated. Insulin as per protocol. Followup fingersticks. Taper steroids. 6. Smoking. Counseling provided. Nicotine patch. 7. Anxiety. Continue home medications. 8. Depression. Continue home medications. 9. Gastroesophageal reflux disease (GERD). Continue proton pump inhibitor. 10. CVA. Continue aspirin, Plavix, and statin. 11. Poor compliance complicating care. 12. Dyslipidemia. Continue statin. 13. Deep vein thrombosis (DVT) prophylaxis. Heparin subcutaneously. DISPOSITION: Poor prognosis given severe cardiopulmonary conditions with chronic kidney disease. Code status discussed with the patient and family. The patient would like to be FULL CODE at this time. Patient and family services (PFS) has been consulted for arrangement of Life Vest and home services versus assisted living. Physical therapy (PT) evaluation appreciated. The patient passed PT. The patient's family is concerned about patient home safety, given the patient lives alone.
[2016-06-12 19:38] VITALS: BP 110/54
--- NOTE | 2016-06-12 21:13 | IPN ---
DATE: 06/12/2016 Patient seen and examined. No acute events overnight. Denies any fevers, chills, chest pain, pressure or discomfort. Anxious about discharge. Respirations are much improved. VITAL SIGNS: Temperature 97.8, pulse 62, respirations 20, blood pressure 110/54, pulse oximetry 95% on 2 liters nasal cannula. LABORATORY DATA: WBC 11.7, hemoglobin and hematocrit 11.1 over 35.4, platelets 501. Chemistry: Sodium 139, potassium 4.8, chloride 100, bicarbonate 35, BUN 43, creatinine 1.59. PHYSICAL EXAMINATION: GENERAL: Patient alert and oriented times three, in mild dyspnea, conversational, comfortable. HEENT: Normocephalic, atraumatic. PULMONARY: Poor air movement bilateral. Distant breath sounds. No significant wheeze. CARDIAC: Regular rate and rhythm. Normal S1, S2. ABDOMEN: Soft, hypoactive bowel sounds. Inguinal hernia, large, right sided, reducible, nontender. EXTREMITIES: No edema bilateral lower extremities. ASSESSMENT AND PLAN: This is a 76-year-old male patient with underlying medical history of chronic obstructive pulmonary disease (COPD), on home oxygen, poor compliance, history of villous adenoma of the colon, coronary artery disease with coronary artery bypass graft (CABG), chronic anxiety, chronic kidney disease, cerebrovascular accident, renal cell carcinoma with right-sided nephrectomy, smoking, dyslipidemia, gastroesophageal reflux disease (GERD), also with now congestive heart failure with ejection fraction 20%, admitted for hypercarbic respiratory failure secondary to acute on chronic COPD exacerbation. Problems: 1. Acute hypercarbic respiratory failure secondary to acute COPD exacerbation, possibly also due to mucous plugging, community-acquired bacterial pneumonia. Respiratory panel negative. Sputum culture negative today. Blood culture negative today. C-reactive protein much improved. Azithromycin and Rocephin, currently day #6. Will complete a 7-day course. Wean off bilevel positive airway pressure (BiPAP). Oxygen supplementation. Arterial blood gas (ABG) is appreciated. Not a candidate for Trilogy based on ABG. Tolerating diet. CT angio negative for pulmonary embolism (PE). Taper steroids. Symbicort, Spiriva, DuoNebs. Case was discussed with Dr. Vivas. 2. Coronary artery disease with elevated cardiac enzymes. Dr. Pak has been consulted. The patient sees Dr. Zhong as an outpatient. Cardiac enzymes trend to peak. Telemetry monitoring. Aspirin and Plavix has been added to the regimen and statin, beta roe has been added as well as nitrate. Initially started on angiotensin receptor blockers (ARBs) and Lasix by Dr. Pak with strict intake and output and daily weight but Lasix and ARB have been temporarily discontinued given mildly elevated kidney function. The patient denies any chest pain. Likely cardiac enzyme elevation due to demand ischemia due to severe respiratory distress. Echo shows ejection fraction 20% with global hypokinesis. 3. Congestive heart failure with diastolic and systolic dysfunction. Ejection fraction (EF) of 20%. Cardiology consulted. Lasix initially has been added but currently Lasix and ARB have been discontinued given patient with mildly uptrending creatinine. Will continue to monitor and restart as the patient tolerates. Beta roe, nitrate, aspirin and Plavix for optimization, strict intake and output, daily weight. Appreciate Cardiology's assistance. LifeVest paperwork left in the front of the chart for Dr. Pak to fill out. Continue to monitor. Patient and family services (PFS) consulted. 4. Acute on chronic renal insufficiency. Patient with underlying renal cell carcinoma with right nephrectomy. Followup creatinine. Possible contrast nephropathy versus cardiorenal. BUN and creatinine is pretty baseline at this point. Will continue to follow. ARBs and Lasix on hold given mild elevation. Strict intake and output, daily weight. 5. Hyperglycemia. Prediabetes. Likely secondary to steroids. A1c appreciated. Insulin as per protocol. Taper steroids. 6. Smoking. Counseling provided. Nicotine patch. 7. Anxiety. Continue home medication. 8. Depression. Continue home medication. 9. Gastroesophageal reflux disease. Continue proton pump inhibitor (PPI). 10. Cerebrovascular accident. Continue aspirin, Plavix, statin. Poor compliance, complicating care. 11. Dyslipidemia. Continue statin. 12. Deep vein thrombosis (DVT) prophylaxis. Heparin subcu. DISPOSITION PLANNING: Poor prognosis given severe cardiopulmonary conditions with chronic kidney disease. Code status discussed with the patient and family. Would like to be FULL CODE. Patient and family services has been consulted for LifeVest arrangement. Physical therapy (PT) has previously evaluated the patient. The patient passed PT. Concerns of patient's safety at home. Likely discharge planning home with services after LiveVest.
[2016-06-12] MEDS: ALPRAZolam 0.25 MG TAB PO PRN (21:48)
[2016-06-12] MEDS: ATORVASTATIN 20 MG TAB PO SCH (21:48)
[2016-06-13] VITALS: BP 107/46
[2016-06-13] MEDS: IPRATROPIUM 0.5MG/ALBUTEROL 2.5MG INH SOL UD 3ML (DUONEB)(J7620) NEB SCH ×4 (01:13→20:25)
[2016-06-13] MEDS: traMADol 50 MG TAB PO PRN (03:44)
[2016-06-13] MEDS: IPRATROPIUM 0.5MG/ALBUTEROL 2.5MG INH SOL UD 3ML (DUONEB)(J7620) NEB PRN (03:47)
[2016-06-13 04:00] VITALS: BP 111/56
[2016-06-13 05:31] LABS: MEAN CORPUSCULAR HEMOGLOBIN 27.4 pg (27.0-33.0); MEAN CORPUSCULAR HGB CONC 31.7 g/dl (32.0-36.5); MEAN CORPUSCULAR VOLUME 86.5 fl (80.0-96.0); RED CELL DISTRIBUTION WIDTH 15.2 % (11.5-14.5); WHITE BLOOD COUNT 14.9 K/mm3 (4.0-10.0)
[2016-06-13 05:47] LABS: CALCIUM LEVEL 8.3 MG/DL (8.8-10.2); CREATININE FOR GFR 1.59 MG/DL (0.70-1.30); GLOMERULAR FILTRATION RATE 45.1 (>42); MAGNESIUM LEVEL 2.6 MG/DL (1.8-2.4)
[2016-06-13 05:52] LABS: POTASSIUM SERUM 5.2 MEQ/L (3.5-5.1)
[2016-06-13] MEDS: HEPARIN SOD (PORCINE) 5000 UNITS/ML VIAL SC SCH ×3 (06:44→22:28)
[2016-06-13] MEDS: TIOTROPIUM INHALER/CAPSULE (SPIRIVA) INH SCH (07:05)
[2016-06-13] MEDS: SYMBICORT 160/4.5MCG INHALER 6GM INH SCH ×2 (07:06→20:25)
[2016-06-13] MEDS: HumaLOG INSULIN (NovoLOG) PER UNIT SC SCH ×4 (07:18→21:00)
[2016-06-13 08:00] VITALS: BP 124/64
[2016-06-13] MEDS: NICOTINE 14 MG/24 HR TRANSDERMAL TD SCH (08:59)
[2016-06-13] MEDS: MIRALAX *UNIT DOSE* 17GM PACKET PO SCH (08:59)
[2016-06-13] MEDS: AZITHROMYCIN 250 MG TAB PO SCH (09:05)
[2016-06-13] MEDS: FAMOTIDINE 20 MG TAB PO SCH ×2 (09:05→22:27)
[2016-06-13] MEDS: MULTIVITAMINS/MINERALS THERAP 1 TAB PO SCH (09:05)
[2016-06-13] MEDS: predniSONE 10 MG TAB PO SCH (09:05)
[2016-06-13] MEDS: CLOPIDOGREL 75 MG TAB PO SCH (09:05)
[2016-06-13] MEDS: SENOKOT S TAB PO SCH ×2 (09:05→22:27)
[2016-06-13] MEDS: ISOSORBIDE MON. (IMDUR) 30 MG XR TAB PO SCH (09:06)
[2016-06-13] MEDS: PARoxetine 20 MG TAB PO SCH (09:06)
[2016-06-13] MEDS: FERROUS SULFATE 325MG TAB PO SCH (09:06)
[2016-06-13] MEDS: ASPIRIN 81 MG ENTERIC TAB PO SCH (09:06)
[2016-06-13] MEDS: CARVedilol 3.125 MG TAB PO SCH ×2 (09:06→22:27)
[2016-06-13] MEDS: guaiFENesin ER 600 MG TAB PO SCH ×2 (09:06→22:28)
[2016-06-13] MEDS: ALPRAZolam 0.25 MG TAB PO PRN ×2 (09:12→22:31)
[2016-06-13 12:00] VITALS: BP 129/57
[2016-06-13 13:27] LABS: CALCIUM LEVEL 8.5 MG/DL (8.8-10.2); CREATININE FOR GFR 1.59 MG/DL (0.70-1.30); GLOMERULAR FILTRATION RATE 45.1 (>42); POTASSIUM SERUM 4.9 MEQ/L (3.5-5.1)
[2016-06-13] MEDS: cefTRIAXone SOD 2 GM in D5W MINI-BAG PLUS 50 ML IV SCH (14:02)
[2016-06-13 16:00] VITALS: BP 109/50
[2016-06-13 20:00] VITALS: BP 107/48
--- NOTE | 2016-06-13 21:48 | IPN ---
DATE: 06/13/2016 SUBJECTIVE: Today the patient tells me he feels great. He denies shortness of breath. Tells me that he is at his baseline. Denies fevers, chills, chest pain, nausea, vomiting. OBJECTIVE: VITAL SIGNS: Temperature 96.7, pulse 78, respiratory rate 18, blood pressure 124/64, oxygen saturation 98% on two liters. GENERAL: He is a disheveled, elderly man who sits up in bed to greet me as I enter the room. He does not appear to be in any acute distress whatsoever. HEENT: Disheveled, malodorous. Poor dentition. Moist mucous membranes. No elevation of central venous pressure (CVP). CARDIOVASCULAR: S1, S2. Regular rate. RESPIRATORY: Exam is fairly clear. ABDOMEN: Benign. EXTREMITIES: No clubbing, cyanosis or edema. He has very poor nail care. LABORATORY DATA: WBC 14.9, hemoglobin 9.7, hematocrit 30.5, platelet count 491. Chemistry panel: Sodium 139, potassium 4.9, chloride 99, bicarbonate 34, BUN 46, creatinine 1.5. MICROBIOLOGY: All negative. IMAGING: No new imaging. ASSESSMENT AND PLAN: This is a 76-year-old man with a history of chronic obstructive pulmonary disease (COPD) on home oxygen with poor medical compliance, presented now with hypercarbic respiratory failure secondary to COPD exacerbation and was found to have new, severe systolic dysfunction. 1. Hypercarbic respiratory failure secondary to COPD exacerbation, possibly due to mucous membrane versus community-acquired pneumonia. The patient today is completing his seventh day of antibiotics for community-acquired pneumonia. He has also been treated for COPD exacerbation with his steroids being weaned. He did initially present in respiratory failure requiring bilevel positive airway pressure (BiPAP). As per Dr. Garcia, the patient is not a candidate for Trilogy based on his arterial blood gas (ABG). He is tolerating a diet. He is on Symbicort, Spiriva, DuoNeb. His case was discussed with Dr. Vivas earlier in his hospital course. The patient's respiratory status appears to be at baseline. 2. Coronary artery disease. The patient has been consulted by Dr. Pak who, it appears, last saw the patient on 06/08. The patient normally follows with Dr. Zhong. The patient had did have some troponin leak during his stay felt to be secondary to demand ischemia. He is continued on telemetry monitoring. He is on aspirin, Plavix, statin, beta roe, as well as nitrate. There was an attempt to start the patient on an angiotensin II receptor blockers (ARB) and Lasix; however, they were temporarily discontinued as he had some mild acute kidney injury secondary to these medications. 3. Severe systolic and diastolic congestive heart failure, ejection fraction 20%. Medications as outlined above. The patient would also likely benefit from Aldactone if his blood pressure can tolerate it, given his low ejection fraction. Dr. Pak is reportedly on the case. We have been seeking out cardiology's help but in order to arrange for a Life Vest which is, at this point in time, appears to be the only thing keeping this patient in the hospital. I did make several attempts to contact Dr. Pak today and am waiting to hear back from him. The patient has informed me that he would like to leave the hospital AGAINST MEDICAL ADVICE even if the vest is unable to be arranged for him. Risks and benefits including sudden cardiac have been discussed at length with him. At this time, he has stayed thus far, but I would not be surprised if he did leave against medical advice at any time. 4. Acute kidney injury, possibly secondary to ARB and Lasix. These are being held. He is at his baseline renal function. 5. Hyperglycemia secondary to steroids. 6. Tobacco use. Cessation counseling offered. 7. Anxiety/depression. He is continued on his home medications for mood disorder. 8. Gastroesophageal reflux disease. He is on a proton pump inhibitor (PPI). 9. History of cerebrovascular accident (CVA). The patient is on aspirin and Plavix and a statin, but he has poor compliance. 10. Dyslipidemia. He is on a statin. 11. Deep venous thrombosis (DVT) prophylaxis. The patient is on heparin. DISPOSITION: The patient is a FULL CODE. We are waiting for Life Vest arrangement. He is otherwise ready for potential discharge home. At this time, he is agreeable to stay, but I would not be surprised if he leaves against medical advice.
[2016-06-13] MEDS: ATORVASTATIN 20 MG TAB PO SCH (22:27)
[2016-06-14] VITALS (7 sets, daily range): BP systolic 103–129; BP diastolic 51–69
[2016-06-14] MEDS: IPRATROPIUM 0.5MG/ALBUTEROL 2.5MG INH SOL UD 3ML (DUONEB)(J7620) NEB SCH ×4 (01:25→21:11)
[2016-06-14] MEDS: HEPARIN SOD (PORCINE) 5000 UNITS/ML VIAL SC SCH ×3 (06:29→21:16)
[2016-06-14] MEDS: SYMBICORT 160/4.5MCG INHALER 6GM INH SCH ×2 (07:05→21:11)
[2016-06-14] MEDS: TIOTROPIUM INHALER/CAPSULE (SPIRIVA) INH SCH (07:05)
[2016-06-14] MEDS: HumaLOG INSULIN (NovoLOG) PER UNIT SC SCH ×4 (07:30→20:00)
[2016-06-14] MEDS: MIRALAX *UNIT DOSE* 17GM PACKET PO SCH (08:24)
[2016-06-14] MEDS: FERROUS SULFATE 325MG TAB PO SCH (08:24)
[2016-06-14] MEDS: ASPIRIN 81 MG ENTERIC TAB PO SCH (08:24)
[2016-06-14] MEDS: CARVedilol 3.125 MG TAB PO SCH ×2 (08:24→21:17)
[2016-06-14] MEDS: ISOSORBIDE MON. (IMDUR) 30 MG XR TAB PO SCH (08:24)
[2016-06-14] MEDS: predniSONE 10 MG TAB PO SCH (08:24)
[2016-06-14] MEDS: guaiFENesin ER 600 MG TAB PO SCH ×2 (08:25→21:17)
[2016-06-14] MEDS: SENOKOT S TAB PO SCH ×2 (08:25→21:16)
[2016-06-14] MEDS: CLOPIDOGREL 75 MG TAB PO SCH (08:25)
[2016-06-14] MEDS: AZITHROMYCIN 250 MG TAB PO SCH (08:25)
[2016-06-14] MEDS: NICOTINE 14 MG/24 HR TRANSDERMAL TD SCH (08:25)
[2016-06-14] MEDS: FAMOTIDINE 20 MG TAB PO SCH ×2 (08:25→21:17)
[2016-06-14] MEDS: PARoxetine 20 MG TAB PO SCH (08:25)
[2016-06-14] MEDS: MULTIVITAMINS/MINERALS THERAP 1 TAB PO SCH (08:25)
[2016-06-14] MEDS: cefTRIAXone SOD 2 GM in D5W MINI-BAG PLUS 50 ML IV SCH (12:39)
[2016-06-14] MEDS ORDERED: NICO14PA TD (13:49)
[2016-06-14] MEDS ORDERED: NITR4TASL SL (13:49)
[2016-06-14] MEDS ORDERED: CLOP75TA2 PO (13:49)
[2016-06-14] MEDS ORDERED: CARV3.12 PO (13:49)
[2016-06-14] MEDS ORDERED: ASPI81TAEC PO (13:49)
[2016-06-14] MEDS ORDERED: ISOS30TA4 PO (13:49)
[2016-06-14] MEDS: IPRATROPIUM 0.5MG/ALBUTEROL 2.5MG INH SOL UD 3ML (DUONEB)(J7620) NEB PRN (16:43)
[2016-06-14] MEDS: ALPRAZolam 0.25 MG TAB PO PRN (16:51)
[2016-06-14] MEDS: ATORVASTATIN 20 MG TAB PO SCH (21:17)
[2016-06-15] MEDS: IPRATROPIUM 0.5MG/ALBUTEROL 2.5MG INH SOL UD 3ML (DUONEB)(J7620) NEB SCH ×3 (01:13→13:06)
[2016-06-15 04:17] VITALS: BP 107/53
[2016-06-15] MEDS: HEPARIN SOD (PORCINE) 5000 UNITS/ML VIAL SC SCH ×2 (06:08→14:42)
--- NOTE | 2016-06-15 06:59 | IPN ---
DATE: 06/15/2016 SUBJECTIVE: The patient tells me he continues to feels well and has no complaints. He denies any chest pain, shortness of breath, fevers, chills, nausea, vomiting, or diarrhea. OBJECTIVE: VITAL SIGNS: Temperature 96.4, pulse 80, respiratory rate 18, blood pressure (BP) 122/66, oxygen saturation 98% on room air. GENERAL: He is a disheveled, elderly man who sits up to greet me as I enter the room. He does not appear to be in any acute distress. HEENT: He is disheveled. He has long hair. He has poor dentition. Moist mucous membranes. No elevation of central venous pressure (CVP). CARDIOVASCULAR EXAM: S1, S2. Regular. RESPIRATORY EXAM: Is fairly clear and good air movement. He is kyphotic. ABDOMINAL EXAM: Was benign. EXTREMITIES: No clubbing, cyanosis or edema. Once again, his poor nail care is noted. LABORATORY STUDIES: The patient has no new labs. No new imaging. ASSESSMENT AND PLAN: This is a 76-year-old man with a history of chronic obstructive pulmonary disease (COPD) on home oxygen with poor medical compliance, presented with hypercarbic respiratory failure secondary to chronic obstructive pulmonary disease exacerbation, also found to have a new, severe systolic dysfunction. PROBLEMS: 1. Hypercarbic respiratory failure secondary to COPD exacerbation, possibly due to mucous plugging versus community-acquired pneumonia. The patient completed seven days of antibiotics. He was also treated for COPD and his steroids are being weaned. His respiratory status has returned to his baseline. As per Dr. Garcia, the patient is not a candidate for Trilogy because of his arterial blood gases (ABGs). He is tolerating a diet. He is continued on Symbicort, Spiriva, DuoNebs. His case was discussed with Dr. Vivas earlier in his hospital stay. 2. Severe systolic cardiomyopathy, diastolic and systolic congestive heart failure. He is euvolemic at this time. His ejection fraction is 20%. He has been seen by cardiology. Dr. Pak has been following closely. He is on aspirin and Plavix, statin, a beta-roe as well as nitrates. He did not tolerate an angiotensin II receptor roe (ARB) or Lasix secondary to some acute kidney injury. If he can tolerate aldactone, it would be beneficial for him. He is unable to tolerate an ARB. Perhaps, hydralazine would be beneficial as well in combination with the nitrate. Given the patient's severe cardiomyopathy and his low ejection fraction, he is at risk for sudden cardiac . I have been in contact with Dr. Pak very closely for the last 24 hours. We are trying to arrange for a LifeVest for this patient prior to him leaving the hospital. He otherwise, has been stable and ready for discharge. All necessary information, documentation has been faxed to the LifeVest people. I have been assured by both patient and family services (PFS) and Dr. Pak as they have both done this. 3. Acute kidney injury, possibly secondary to ARB and Lasix. These are being held and he is back to his baseline renal function. 4. Hyperglycemia secondary to steroids, improving with weaning of steroids. 5. Tobacco use. Cessation counseling offered. 6. Anxiety/depression. He is continued on his home medications. 7. Gastroesophageal reflux disease. He is on a proton pump inhibitor (PPI). 8. History of cerebrovascular accident (CVA). He is on aspirin and Plavix and a statin, but he has poor compliance. 9. Dyslipidemia. He is on a statin. 10. Deep venous thrombosis (DVT) prophylaxis. He is on heparin. DISPOSITION: He is a FULL CODE. We are waiting for LifeVest. Otherwise, he potentially ready and stable for discharge home. He has a history of poor compliance, a history of leaving against medical advice. He understands the risks and benefits of doing this, and also, given his poor compliance his long-term prognosis appears to be quite poor.
[2016-06-15] MEDS: TIOTROPIUM INHALER/CAPSULE (SPIRIVA) INH SCH (07:18)
[2016-06-15] MEDS: SYMBICORT 160/4.5MCG INHALER 6GM INH SCH (07:18)
[2016-06-15] MEDS: HumaLOG INSULIN (NovoLOG) PER UNIT SC SCH ×2 (07:30→12:36)
[2016-06-15 07:33] LABS: MEAN CORPUSCULAR HEMOGLOBIN 27.4 pg (27.0-33.0); MEAN CORPUSCULAR HGB CONC 31.6 g/dl (32.0-36.5); MEAN CORPUSCULAR VOLUME 86.9 fl (80.0-96.0); RED CELL DISTRIBUTION WIDTH 15.6 % (11.5-14.5); WHITE BLOOD COUNT 11.2 K/mm3 (4.0-10.0)
[2016-06-15 07:45] VITALS: BP 106/53
[2016-06-15 08:00] LABS: CALCIUM LEVEL 8.1 MG/DL (8.8-10.2); CREATININE FOR GFR 1.38 MG/DL (0.70-1.30); GLOMERULAR FILTRATION RATE 53.1 (>42); MAGNESIUM LEVEL 2.3 MG/DL (1.8-2.4)
[2016-06-15 08:01] LABS: POTASSIUM SERUM 5.4 MEQ/L (3.5-5.1)
[2016-06-15] MEDS: SENOKOT S TAB PO SCH (09:00)
[2016-06-15] MEDS: MIRALAX *UNIT DOSE* 17GM PACKET PO SCH (09:00)
[2016-06-15] MEDS: NICOTINE 14 MG/24 HR TRANSDERMAL TD SCH (09:00)
[2016-06-15] MEDS: FERROUS SULFATE 325MG TAB PO SCH (09:24)
[2016-06-15] MEDS: predniSONE 10 MG TAB PO SCH (09:24)
[2016-06-15 09:25] VITALS: BP 106/53
[2016-06-15] MEDS: PARoxetine 20 MG TAB PO SCH (09:25)
[2016-06-15] MEDS: MULTIVITAMINS/MINERALS THERAP 1 TAB PO SCH (09:25)
[2016-06-15] MEDS: ASPIRIN 81 MG ENTERIC TAB PO SCH (09:25)
[2016-06-15] MEDS: CARVedilol 3.125 MG TAB PO SCH (09:25)
[2016-06-15] MEDS: FAMOTIDINE 20 MG TAB PO SCH (09:25)
[2016-06-15] MEDS: CLOPIDOGREL 75 MG TAB PO SCH (09:26)
[2016-06-15] MEDS: guaiFENesin ER 600 MG TAB PO SCH (09:26)
[2016-06-15] MEDS: ISOSORBIDE MON. (IMDUR) 30 MG XR TAB PO SCH (09:27)
[2016-06-15 12:00] VITALS: BP 96/69
[2016-06-15] MEDS: cefTRIAXone SOD 2 GM in D5W MINI-BAG PLUS 50 ML IV SCH (12:35)
--- NOTE | 2016-06-15 23:03 | DSES ---
DATE OF ADMISSION: 06/06/2016 DATE OF DISCHARGE: 06/15/2016 DISCHARGE DIAGNOSIS: Hypercarbic respiratory failure. SECONDARY DIAGNOSES: Decompensated chronic obstructive pulmonary disease (COPD). Community-acquired pneumonia. Severe systolic cardiomyopathy with depressed ejection fraction. Acute kidney injury. Hyperglycemia. Tobacco abuse. Anxiety. Depression Medical noncompliance. Gastroesophageal reflux disease. History of a cerebrovascular accident. Dyslipidemia. CONSULTS: Dr. Pak, Cardiology. HOSPITAL COURSE: The patient is a 76-year-old man with a history of medical noncompliance, known COPD, active tobacco use, chronically on 2 liters of nasal cannula home oxygen, lives alone, who presented with complicated COPD and hypercarbic respiratory failure, initially requiring bilevel positive airway pressure (BiPAP) in the medical intensive care unit. The patient did slowly progress. An echocardiogram revealed a new severe systolic cardiomyopathy with an ejection fraction of 20% He was seen by Dr. Pak from Cardiology who altered his cardiac medication regimen. He was medically optimized. He did receive a placement of a LifeVest prior to discharge. He did wait several days while this was being arranged towards the end of his stay. SUBJECTIVE: Today, the patient tells me he is feeling great. He tells me he feels back to normal. He has no complaints. No chest pain, shortness of breath, fevers , chills, nausea, vomiting or diarrhea. OBJECTIVE: VITAL SIGNS: Temperature 98.1, pulse 82, respiratory rate 20, blood pressure 106/53, oxygen saturation 98% on 2 liters. GENERAL: He is a disheveled, elderly man sitting up in bed. He is in no distress. HEENT: Cranial nerves II-XII are grossly intact. He has moist mucous membranes, poor dentition. No elevation of central venous pressure (CVP). CARDIOVASCULAR EXAM: S1, S2, regular. RESPIRATORY EXAM: Fairly clear. He is kyphotic. ABDOMINAL EXAM: Benign. EXTREMITIES: No clubbing, cyanosis or edema. He has very poor nail care. LABORATORY STUDIES: WBC 11.2, hemoglobin 10.9, hematocrit 34.6, platelet count 472. Chemistry panel: Sodium 138, potassium 5.4, chloride 101, BUN 47, creatinine 1.3. Microbiology: Blood cultures were negative. Respiratory panel was negative. Methicillin-resistant Staphylococcus aureus (MRSA) screen was negative. IMAGING: The patient had a CT angiography of his chest at the time of admission which revealed no evidence of pulmonary embolism (PE) but did reveal mucous plugging in the right lower lobe associated with mild atelectasis. ASSESSMENT AND PLAN: This is a 76-year-old male with chronic obstructive pulmonary disease, on home oxygen, with poor medical compliance, who presented in hypercarbic respiratory failure secondary to COPD exacerbation versus community-acquired pneumonia versus mucous plugging, found to have new severe systolic dysfunction. PROBLEMS: 1. Hypercarbic respiratory failure, likely secondary to COPD, possibly due to mucous plugging versus community-acquired pneumonia. The patient completed seven days of antibiotics in the hospital. He was initially on BiPAP, but his respiratory status did improve. The patient is currently back at his baseline. As per Dr. Garcia's evaluation, the patient is not a candidate for Trilogy because of his arterial blood gases (ABGs). He is tolerating a diet. He was continued on Symbicort, Spiriva, DuoNebs. Apparently his case was discussed with Dr. Vivas earlier in his hospital stay. 2. Severe systolic dysfunction with cardiomyopathy, systolic and likely diastolic component as well. The patient is euvolemic. His ejection fraction is 20%. He has been seen by Dr. Pak of cardiology who has placed him on aspirin, Plavix, statin, beta roe, as well as nitrates. He did not tolerate an angiotensin receptor roe (ARB) or Lasix secondary to acute kidney injury. If he can tolerate aldactone, he may benefit from this or perhaps hydralazine would be beneficial in combination with the nitrates in place of an angiotensin- converting enzyme (ROSARIO) or an ARB. Given his severe ejection fraction, he is at risk for sudden cardiac . Dr. Pak has arranged for the patient to receive a LifeVest. The LifeVest was placed, and he has been educated on this. Home health services have been arranged today at the time that the patient is being discharged home with his LifeVest greatly with the help of Dr. Pak and patient and family services (PFS). 3. Acute kidney injury, likely secondary to ARB and Lasix. These are being held. He is back to his baseline renal function. 4. Hyperglycemia, likely secondary to steroids. Improved now that the patient is back on his home dose of steroids. 5. Tobacco use. Cessation and counseling offered. 6. Medication noncompliance. Compliance has been stressed. He is aware that he is likely near the end of his life and unless he takes care of himself, appears for regular doctors appointments and take medications as prescribed, he will likely get there sooner rather than later, he is aware of this and wishes to remain a FULL CODE. 7. Anxiety, depression. Continued on Paxil and Xanax. 8. Gastroesophageal reflux disease. He is continued on omeprazole. 9. History of cerebrovascular accident. The patient is on Plavix, statin; however, he has poor compliance. 10. Dyslipidemia. He is on a statin. 11. Deep vein thrombosis (DVT) prophylaxis. The patient has been on heparin. DISPOSITION: The patient is being discharged home. He has been cleared by physical therapy. He is at his functional baseline and he is to followup within 7 days with PCP and cardiology within 1 week. His activity is as prior to admission. His diet is a 2-gram consistent carbohydrate diet. 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 He is to return to the emergency room (ER) if his symptoms worsen. MEDICATIONS AT THE TIME OF DISCHARGE: - aspirin 81 mg daily - Coreg 3.125 mg every 12 hours - Plavix 75 mg daily - isosorbide mononitrate 30 mg daily - Nicoderm patch transdermally daily - Nitrostat 0.4 mg sublingually every 5 minutes as needed for chest pain - Tylenol 650 mg every 4 hours as needed for pain - Ventolin HFA two puffs inhaled every 4 hours as needed for shortness of breath - DuoNeb solution nebulizer inhaled every 4 hours as needed for shortness of breath - alprazolam 0.25 mg three times a day as needed for anxiety - atorvastatin 40 mg by mouth nightly - Symbicort two puffs inhaled twice a day 160-4.5 - Docusate Plus 50-8.6 one tablet by mouth twice a day - ferrous sulfate 325 mg daily - multivitamin one tablet daily - omeprazole 40 mg twice a day - Paxil 20 mg daily - prednisone 10 mg daily - theophylline extended release 400 mg daily - tramadol 50 mg tablets, one to two tablets every 6 hours as needed for pain Greater than 30 minutes was spent organizing patient's disposition. [facility]
== END 2016-06-15 16:21 | disposition home health service (06) | DRG 291 ==
LOC: M ED 04:58 → M ED INP 08:50 → M ICU 20:37 → M PCU 06-09 17:31
PROVIDERS: ADMIT Hospitalist; ATTEND Internal Medicine
DX: I50.33 Acute on chronic diastolic (congestive) heart failure (principal); J96.02 Acute respiratory failure with hypercapnia; J15.9 Unspecified bacterial pneumonia; J44.1 Chronic obstructive pulmonary disease with (acute) exacerbation; I24.8 Other forms of acute ischemic heart disease; N17.9 Acute kidney failure, unspecified; F41.9 Anxiety disorder, unspecified; N18.9 Chronic kidney disease, unspecified; E78.5 Hyperlipidemia, unspecified; R73.9 Hyperglycemia, unspecified; H54.42 Blindness, left eye, normal vision right eye; G43.909 Migraine, unspecified, not intractable, without status migrainosus; K59.00 Constipation, unspecified; I25.10 Atherosclerotic heart disease of native coronary artery without angina pectoris; T38.0X5A Adverse effect of glucocorticoids and synthetic analogues, initial encounter; Z95.1 Presence of aortocoronary bypass graft; Z86.73 Personal history of transient ischemic attack (TIA), and cerebral infarction without residual deficits; Z85.528 Personal history of other malignant neoplasm of kidney; Z86.010 Personal history of colon polyps; Z91.19 Patient's noncompliance with other medical treatment and regimen; Z90.5 Acquired absence of kidney; Z79.51 Long term (current) use of inhaled steroids; Z79.899 Other long term (current) drug therapy; Z79.891 Long term (current) use of opiate analgesic; Z99.81 Dependence on supplemental oxygen; Z95.820 Peripheral vascular angioplasty status with implants and grafts

== ENCOUNTER 2016-09-14 17:41 | Inpatient (IN) | payer MEDICARE, MEDICAID ==
[~2016-09-14] VITALS: Ht 167.6 cm; Wt 47.0 kg
[~2016-09-14 17:41] MED LIST changes: +ASPI81TAEC PO; +CARV3.12 PO; -COLA100C PO; +COLA100C3 PO; +ISOS30TA4 PO; +MYLASUS16 PO; -MYLASUS2 PO; +NICO14PA TD; +NICO7DIS2 TD; -NICO7DIS23 TD; -PARO20TA2 PO; +PARO20TA3 PO; +THEO1TAB PO; -[UNRECOGNIZED DRUG - CODE] PO
[2016-09-14 18:35] LABS: VENOUS BASE EXCESS 6.5 (-2.0-2.0); VENOUS O2 SATURATION 65.6 % (60.0-80.0); VENOUS PARTIAL PRESSURE O2 35.9 mmHg (30.0-50.0); VENOUS STANDARD HCO3 29.8 MEQ/L
[2016-09-14 18:43] LABS: MEAN CORPUSCULAR HEMOGLOBIN 27.6 pg (27.0-33.0); MEAN CORPUSCULAR HGB CONC 31.4 g/dl (32.0-36.5); MEAN CORPUSCULAR VOLUME 87.8 fl (80.0-96.0); RED CELL DISTRIBUTION WIDTH 14.4 % (11.5-14.5); WHITE BLOOD COUNT 6.4 K/mm3 (4.0-10.0)
--- NOTE | 2016-09-14 18:55 | REP ---
Clinical: COPD. Technique: PA and lateral. Comparison: 06/07/2016. Findings: Mediastinum and cardiac silhouette are normal. Lung mederos demonstrate diffuse chronic interstitial changes consistent with COPD lateral view suggests lower lobe infiltrate/atelectasis. No effusion. No pneumothorax. Skeletal structures intact. Impression: Cannot exclude right lower lobe atelectasis/infiltrate. Signed by Garret Lynn MD 09/14/2016 06:47 P
[2016-09-14 19:01] LABS: ALBUMIN/GLOBULIN RATIO 1.07 (1.00-1.93); ALKALINE PHOSPHATASE 81 U/L (45-117); ALT/SGPT 19 U/L (12-78); ANION GAP 4 MEQ/L (8-16); AST/SGOT 13 U/L (15-37); BILIRUBIN,DIRECT < 0.1 MG/DL (0.0-0.2); BILIRUBIN,TOTAL 0.2 MG/DL (0.2-1.0); BLOOD UREA NITROGEN 34 MG/DL (7-18); CARBON DIOXIDE LEVEL 32 MEQ/L (21-32); CHLORIDE LEVEL 108 MEQ/L (98-107); CREATININE FOR GFR 1.38 MG/DL (0.70-1.30); GLOMERULAR FILTRATION RATE 53.1 (>42); GLUCOSE, FASTING 101 MG/DL (83-110); POTASSIUM SERUM 4.8 MEQ/L (3.5-5.1); SODIUM LEVEL 144 MEQ/L (136-145); TOTAL PROTEIN 5.8 GM/DL (6.4-8.2)
[2016-09-14] MEDS ORDERED: AZITHROMYCIN INJ 500 MG, VIAL MATE ADAPTER 1 EACH in D5W 250 ML IV ONE (20:30)
[2016-09-14] MEDS ORDERED: cefTRIAXone SOD 1 GM in D5W MINI-BAG PLUS 50 ML IV ONE (20:30)
[2016-09-14 20:36] LABS: METHADONE URINE NEGATIVE (NEGATIVE)
[2016-09-14 21:34] LABS: RETIC HEMOGLOBIN CONTENT CHr 26.5 PG (24-36); RETICULOCYTE % ADVIA2120 2.2 % (0.5-1.5)
[2016-09-14 21:35] VITALS: O2SAT 99
[2016-09-14 21:48] LABS: FERRITIN 9 NG/ML (26-388); PERCENT SATURATION 7.7 % (19.7-37.4); TOTAL IRON BINDING CAPACITY 311 UG/DL (250-450)
[2016-09-14 21:49] LABS: ABG BASE EXCESS 5.9 (-2.0-2.0); ABG HCO3 33.2 MEQ/L (22.0-26.0); ABG PARTIAL PRESSURE CO2 64.2 mmHg (35.0-45.0); ABG PARTIAL PRESSURE O2 82.7 mmHg (75.0-100.0); ABG STANDARD HCO3 29.8 MEQ/L (22.0-26.0); ABG TOTAL CO2 35.2 MEQ/L (23.0-31.0); ABG pH (ARTERIAL) 7.332 UNITS (7.350-7.450)
[2016-09-14] MEDS ORDERED: ONDANSETRON 4MG/2ML VIAL (J2405) IV PRN (22:15)
[2016-09-14] MEDS ORDERED: IPRATROPIUM 0.5MG/ALBUTEROL 2.5MG INH SOL UD 3ML (DUONEB)(J7620) NEB SCH ×2 (22:45→22:57)
[2016-09-14] MEDS ORDERED: ALBUTEROL SULFATE 2.5 MG/0.5 ML INH NEB SOLN NEB SCH ×2 (22:45→22:57)
[2016-09-14] MEDS ORDERED: NICOTINE 21MG/24HR 1 EA TRANSDERMAL TD ONE (23:00)
--- NOTE | 2016-09-14 23:18 | HPEPDOC ---
General Date of Admission 09/14/2016 Primary Care Physician: REGAN DAVID MD [facility] Attending Physician: JAYDEN GUILLORY DO Chief Complaint The patient is a 76-year-old male admitted with a reason for visit of Shoulder Pain. Source: Family, Old records Exam Limitations: Clinical conditions Associated Symptoms: Unobtainable History of Present Illness Mr. Silvestre is a 76-year-old male who presents to [facility]'s emergency Department with altered mental status. Past medical history significant for chronic obstructive pulmonary disease, systolic dysfunction with a left ventricular ejection fraction 20%, mitral regurgitation, hypertension, coronary artery disease with coronary artery bypass graft, chronic kidney disease, dyslipidemia, gastroesophageal reflux disease, cerebrovascular accident, anemia, anxiety, villous adenoma, nicotine abuse, hiatal hernia, right inguinal hernia, hemorrhagic papillary renal carcinoma, gastric intestinal bleed. Patient is unable to provide any history secondary to clinical condition. I telephoned his daughter, Radha Alvarenga, whose contact information is listed in patient's EMR, and she reported to me that patient had activated his lifeline button. Apparently he reported to her that he was unable to determine why he was going to the hospital. She reports that he thought that his nephew, who lives in another state, was trying to kill him. She further states that he then changed his story and said that there were 4 people in his home trying to kill him. She states that this has never happened before. Patient is unable to contribute to review of systems secondary to clinical condition. Patient's prior hospitalization was from 06/06 - for hypercarbic respiratory failure. He initially required bilevel positive airway pressure ( BiPAP) in the medical intensive care unit. The patient did slowly progress. An echocardiogram revealed a new severe systolic cardiomyopathy with an ejection fraction of 20%. He was seen by cardiology who altered his cardiac medication regimen. He was medically optimized. He did receive a placement of a LifeVest prior to discharge. He did wait several days while this was being arranged towards the end of his stay. Hospitalist service was consulted and patient was admitted for further medical management. Home Medications Scheduled Amoxicillin/Clavulanate Potas (Amoxicillin/Clavulanate P 875-125 mg) 1 Tab Tab, 875 MG PO BID, (Reported) Aspirin (Aspirin EC) 81 Mg Tabec, 81 MG PO DAILY, (Reported) Atorvastatin Calcium (Atorvastatin Calcium) 40 Mg Tab, 40 MG PO QHS, (Reported) Budesonide/Formoterol (Symbicort 160-4.5 Mcg/Act) 60 Puff/Inhaler Aers, 2 PUFFS INH BID, (Reported) Carvedilol (Carvedilol) 3.125 Mg Tab, 3.125 MG PO BID, (Reported) Clopidogrel Bisulfate (Clopidogrel) 75 Mg Tab, 75 MG PO DAILY, (Reported) Isosorbide Mononitrate (Isosorbide Mononitrate ER) 30 Mg Tab, 30 MG PO DAILY, ( Reported) Loratadine (Loratadine) 10 Mg Tab, 10 MG PO DAILY, (Reported) Multivitamins *[facility] STOCKED* (Thera M Plus *[facility] STOCKED*) 1 Tab Tab, 1 TAB PO DAILY, (Reported) Omeprazole (Omeprazole) 20 Mg Cap, 40 MG PO BID, (Reported) Paroxetine (Paroxetine HCl) 20 Mg Tab, 20 MG PO DAILY, (Reported) Prednisone (Prednisone) 10 Mg Tab, 10 MG PO DAILY, (Reported) Terbinafine HCl (Terbinafine HCl) 250 Mg Tab, 250 MG PO DAILY, (Reported) Theophylline (Theophylline ER) 400 Mg Tabcr, 400 MG PO DAILY, (Reported) Scheduled PRN Acetaminophen (Acetaminophen) 325 Mg Tab, 650 MG PO Q4H PRN for PAIN, (Reported) Albuterol Sulfate (Ventolin Hfa) 200 Puff/8 Gm Aers, 2 PUFF INH Q4H PRN for SHORTNESS OF BREATH, (Reported) Albuterol/Ipratropium (Ipratropium [place]/Albut 0.5-2.5 (3) mg/3Ml) 1 Aroldo Aroldo, 1 AROLDO INH Q4H PRN for SHORTNESS OF BREATH, (Reported) Alprazolam (Alprazolam) 0.25 Mg Tab, 0.25 MG PO TID PRN for ANXIETY, (Reported) Docusate Sodium (Docusate Sodium) 100 Mg Cap, 100 MG PO BID PRN for CONSTIPATION , (Reported) Nitroglycerin (Nitrostat) 0.4 Mg Subl, 0.4 MG SL NITRO PRN for CHEST PAIN, ( Reported) Tramadol HCl (Tramadol HCl) 50 Mg Tab, 1-2 MG PO Q6H PRN for PAIN, (Reported) Allergies Coded Allergies: Gabapentin (Unverified Adverse Reaction, Severe, RESPIRATORY DISTRESS, ) RESPIRATORY ACIDOSIS Benzodiazepines (Verified Adverse Reaction, Mild, LETHARGY, 06/06/16) Past Medical History Medical History 1. Chronic obstructive pulmonary disease 2. Systolic dysfunction with a left ventricular ejection fraction 20% 3. Mitral regurgitation 4. Coronary artery disease with coronary artery bypass graft 5. Chronic kidney disease 6. Dyslipidemia 7. Gastroesophageal reflux disease 8. Cerebrovascular accident 9. Anemia 10. Anxiety 11. Villous adenoma 12. Nicotine abuse 13. Noncompliance 14. Hiatal hernia 15. Right inguinal hernia 16. Hemorrhagic papillary renal carcinoma 17. Gastric intestinal bleed 18. Hypertension Surgical History 1. Polypectomy 2. Colonoscopy 3. Small bowel resection 4. Right inguinal hernia repair 5. Right radical nephrectomy with adrenalectomy 6. EGD 7. 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 moist/pink, Tongue Midline, Nares Patent, Other ENT (edentulous) Neck Exam: Positive: Supple, Negative: JVD, thyromegaly, Lymphadenopathy Chest Exam: Positive: Clear to auscultation, Diminished Heart Exam: Positive: Rate Normal, Regular Rhythm, Normal S1, Normal S2, Negative: Gallops, Murmurs, Rubs Telemetry: Positive: No significant arrhythmia Abdomen Exam: Positive: BS Hypoactive, Soft, Negative: Tenderness, Hepatospenomegaly Extremity Exam: Positive: Edema (+1 in the bilateral feet), Normal pulses, Other (finger and toenails sclerotic) Skin Exam: Positive: Rash, Other skin issue (dry skin with flaking, multiple ecchymoses noted along upper extremities bilaterally) Neuro Exam: Positive: Other (lethargic, responds to painful stimuli only) Other physical findings Chest x-ray IMPRESSION: Cannot exclude right lower lobe atelectasis/infiltrate. Vital Signs Vital Signs Date Time Temp Pulse Resp B/P (MAP) Pulse Ox O2 Delivery O2 Flow Rate FiO2 09/14/16 22:14 123/56 (78) 09/14/16 22:11 77 100 09/14/16 21:35 Nasal Cannula 5.0 09/14/16 20:55 26 09/14/16 18:27 99.1 Height (in): 66 Weight (kg): 38.555 BMI (kg): 13.7 Laboratory Data Labs 24H Laboratory Tests 2 09/14/16 18:21: Absolute Reticulocyte Count 77, Percent Reticulocyte Count 2.20H, Reticulocyte Hgb Content (CHr) 26.5, Blood Gas Bicarbonate Standard 29.8, Venous Blood pH 7.336, Venous Blood Partial Pressure CO2 65.0H, Venous Blood Partial Pressure O2 35.9, Venous Blood Total Carbon Dioxide 36.0H, Venous Blood HCO3 34.0H, Venous Blood Oxygen Saturation 65.6, Venous Blood Base Excess 6.5H, Anion Gap 4L , Glomerular Filtration Rate 53.1, Calcium Level 9.0, Iron Level 24L, Total Iron Binding Capacity 311, Transferrin % Saturation 7.7L, Ferritin 9L, Aspartate Amino Transf (AST/SGOT) 13L, Alanine Aminotransferase (ALT/SGPT) 19, Alkaline Phosphatase 81, Total Bilirubin 0.2, Direct Bilirubin < 0.1, Total Protein 5.8L, Albumin 3.0L, Albumin/Globulin Ratio 1.07, Thyroid Stimulating Hormone (TSH) 2.040, Salicylates Level 4.4L, Acetaminophen Level 3.7L, Theophylline Level 2.3L, Ethyl Alcohol Level < 0.003 09/14/16 19:57: Urine Amphetamines Screen NEGATIVE, Urine Benzodiazepines Screen NEGATIVE, Urine Opiates Screen NEGATIVE, Urine Methadone Screen NEGATIVE, Urine Barbiturates Screen NEGATIVE, Urine Phencyclidine Screen NEGATIVE, Urine Cocaine Metabolite Screen NEGATIVE, Urine Cannabinoids Screen NEGATIVE 09/14/16 21:36: Blood Gas Bicarbonate Standard 29.8H, Arterial Blood pH 7.332L, Arterial Blood Partial Pressure CO2 64.2*H, Arterial Blood Partial Pressure O2 82.7, Arterial Blood Total CO2 35.2H, Arterial Blood HCO3 33.2H, Arterial Blood Base Excess 5.9H, Arterial Blood Oxygen Saturation 95.9 CBC/BMP Laboratory Tests 09/14/16 18:21 Red Blood Count 3.57 L, Mean Corpuscular Volume 87.8, Mean Corpuscular Hemoglobin 27.6, Mean Corpuscular Hemoglobin Concent 31.4 L, Red Cell Distribution Width 14.4 Microbiology Microbiology 09/14/16 Blood Culture, Received Pending Assessment/Plan Mr. Silvestre is a 76-year-old male with a past medical history significant for chronic obstructive pulmonary disease, systolic dysfunction with a left ventricular ejection fraction 20%, mitral regurgitation, hypertension, coronary artery disease with coronary artery bypass graft, chronic kidney disease, dyslipidemia, gastroesophageal reflux disease, cerebrovascular accident, anemia, anxiety, villous adenoma, nicotine abuse, hiatal hernia, right inguinal hernia, hemorrhagic papillary renal carcinoma, gastric intestinal bleed who presents with altered mental status secondary to respiratory versus metabolic versus medication induced. Plan / VTE VTE Prophylaxis Ordered?: Yes (TEDs and sequentials with knee-high compression stockings) Plan / Urinary Catheter Urinary Catheter: Place L[place] Reason for insertion/continuin: Critical Pt monitoring Plan Plan Altered mental status secondary to metabolic encephalopathy Likely secondary to respiratory versus metabolic versus medication etiology. Toxicology was negative. Lactic acid 3.2. Reflexive order in 4 hours. Ammonia 60. Ordered lactulose. ABG shows respiratory acidosis. Holding sedatives/ hypnotics at this time. Holding oral medications at this time. Could consider restarting once patient becomes more clinically stable. Aspiration precautions. Obtaining blood and urine cultures. Respiratory acidosis with hypercarbia Likely secondary to COPD exacerbation. Patient has systolic dysfunction with an ejection fraction 20%. Likely contributed to COPD exacerbation. BNP 1150. Hesitant to initiate intravenous fluid resuscitation or diuretics secondary to severely decreased cardiac output. ABG confirms respiratory acidosis with hypercarbia. Place patient on duo nebs, Ventolin, Solu-Medrol 40 mg every 8 hours. Obtaining sputum culture, respiratory panel, MRSA screen. Antibiotics intravenously, ceftriaxone and azithromycin. Oxygen therapy orders in place with titration. Admit to the intensive care unit. Anemia Appears stable at this time. No active bleeding noted. Obtaining iron studies, reticulocyte count, stool for occult blood. Monitor daily CBC. Chronic kidney disease Is around baseline. Renally adjusted antibiotics. Monitor with daily BMP. Obtain urinalysis and urine culture. Severe protein calorie malnutrition with cachexia Patient remains nothing by mouth at this time secondary to clinical conditions. Holding oral medicines at this time. Avoiding sedatives and hypnotics. Obtaining nutritional assessment. Ordered web content & social media manager consultation. Nicotine abuse Ordered nicotine patch. Hypertension Holding oral medications at this time secondary to clinical condition. Could consider restarting home medications in the a.m. Anxiety Holding sedatives/hypnotics at this time secondary to clinical condition. Gastroesophageal reflux disease Oral medications on hold at this time secondary to clinical condition. Could consider restarting patient's home medication in the a.m. Dyslipidemia Oral medications on hold at this time secondary to clinical condition. Could consider restarting her medications in the a.m. Disposition Admit: Intensive care unit Anticipated hospitalization: 2 nights Attending: Dr. Landa Prognosis: Guarded Diet: Make NPO Activity: Continue Current (bedrest with commode) Pt and Family Services: Home Care Medications: Change to IV, Start Antibiotics (ceftriaxone and azithromycin), Start Steroids (Solu-Medrol 40 mg every 8 hours) Diagnostics: Check Labs, Repeat Labs in AM, Obtain Cultures YOEL CHRISTIANSON September 14, 2016 23:18
--- NOTE | 2016-09-14 23:30 | REPUSA ---
CT of the head Clinical history: altered mental status. Protocol: Multiple axial CT images obtained with 5 mm slice thickness were obtained through the head without administration of contrast. Comparison: 02/12/2015. Findings: The ventricles and sulci are symmetric but prominent in size bilaterally. There are periven tricular areas of low attenuation throughout the deep white matter. There is no evidence of acute hem orrhage or infarct. There is no midline shift, mass effect, or extra-axial fluid collection. The osse ous structures are unremarkable. There is partial fluid opacification of the right maxillary sinus. T he other visualized paranasal sinuses and mastoid air cells are clear. Impression: 1. No acute hemorrhage or infarct. Findings are consistent with age-related atrophy and chronic small vessel ischemic disease. 2. Right maxillary sinusitis.
[2016-09-14] MEDS ORDERED: ALBUTEROL SULFATE 2.5 MG/0.5 ML INH NEB SOLN NEB PRN (23:45)
[2016-09-15] VITALS (8 sets, daily range): BP systolic 117–165; BP diastolic 58–83
[2016-09-15] MEDS ORDERED: NITROGLYCERIN 0.4 MG SUBL TABLET SL PRN (00:45)
[2016-09-15] MEDS ORDERED: ACETAMINOPHEN TAB 650MG DOSE (2X325MG) PO PRN (00:45)
[2016-09-15] MEDS ORDERED: NITR4TASL SL (01:08)
[2016-09-15] MEDS ORDERED: PARO20TA3 PO (01:08)
[2016-09-15] MEDS ORDERED: ISOS30TA4 PO (01:08)
[2016-09-15] MEDS ORDERED: DOCU100C PO (01:08)
[2016-09-15] MEDS ORDERED: LORA10TA2 PO (01:08)
[2016-09-15] MEDS ORDERED: ASPI81TAEC PO (01:08)
[2016-09-15] MEDS ORDERED: CARV3.12 PO (01:08)
[2016-09-15] MEDS ORDERED: CLOP75TA2 PO (01:08)
[2016-09-15] MEDS ORDERED: TERB250T57 PO (01:08)
[2016-09-15] MEDS ORDERED: AMOX875T2 PO (01:08)
[2016-09-15] MEDS: methylPREDNISolone INJ 125 MG/2 ML VIAL (J2930) IV SCH ×2 (02:00→11:23)
[2016-09-15] MEDS: IPRATROPIUM 0.5MG/ALBUTEROL 2.5MG INH SOL UD 3ML (DUONEB)(J7620) NEB SCH ×6 (04:00→23:24)
[2016-09-15 05:00] LABS: BASO % 0.4 % (0.0-1.0); EOS % 0.3 % (0.0-3.0); LARGE UNSTAINED CELL # 0.1 K/mm3 (0.0-0.4); LARGE UNSTAINED CELL % 0.7 % (0.0-4.0); LYMPH # 0.5 K/mm3 (1.5-4.5); LYMPH % 4.5 % (24.0-44.0); MEAN CORPUSCULAR HEMOGLOBIN 26.6 pg (27.0-33.0); MEAN CORPUSCULAR HGB CONC 30.2 g/dl (32.0-36.5); MEAN CORPUSCULAR VOLUME 87.8 fl (80.0-96.0); MONO # 0.2 K/mm3 (0.0-0.8); MONO % 1.7 % (0.0-5.0); NEUTROPHILS # 10.3 K/mm3 (1.8-7.7); NEUTROPHILS % 92.4 % (36.0-66.0); PLATELET COUNT, AUTOMATED 447 k/mm3 (150-450); RED CELL DISTRIBUTION WIDTH 14.4 % (11.5-14.5); WHITE BLOOD COUNT 11.2 K/mm3 (4.0-10.0)
[2016-09-15 05:12] LABS: CALCIUM LEVEL 9.2 MG/DL (8.8-10.2); CREATININE FOR GFR 1.27 MG/DL (0.70-1.30); GLOMERULAR FILTRATION RATE 58.4 (>42); MAGNESIUM LEVEL 2.5 MG/DL (1.8-2.4); PHOSPHORUS LEVEL 3.9 MG/DL (2.5-4.9)
[2016-09-15 05:58] LABS: ABG BASE EXCESS 2.7 (-2.0-2.0); ABG HCO3 28.4 MEQ/L (22.0-26.0); ABG PARTIAL PRESSURE CO2 48.6 mmHg (35.0-45.0); ABG PARTIAL PRESSURE O2 57.7 mmHg (75.0-100.0); ABG STANDARD HCO3 26.7 MEQ/L (22.0-26.0); ABG TOTAL CO2 29.9 MEQ/L (23.0-31.0); ABG pH (ARTERIAL) 7.384 UNITS (7.350-7.450)
--- NOTE | 2016-09-15 06:15 | ECGEPIP ---
Stationary ECG Study [facility] - ED Test Date: 2016-09-14 Pat Name: JOSEPHINE MEZA Department: Room: - Gender: M Tufter: lubna : [id number] Requested By: ZOEY GARAY Order Number: [id number] Reading MD: Camron Flores Measurements Intervals [place] Rate: 85 P: 71 OK: 154 QRS: 26 QRSD: 134 T: 98 QT: 421 QTc: 501 Interpretive Statements SINUS RHYTHM INTRAVENTRICULAR CONDUCTION DELAY ANTERIOR ST ELEVATION, CONSIDER ISCHEMIA SIMILAR TO 06/06/16 Electronically Signed On 09-15-2016 6:14:56 EDT by Camron Flroes
[2016-09-15] MEDS: SYMBICORT 160/4.5MCG INHALER 6GM INH SCH ×2 (07:43→21:00)
[2016-09-15] MEDS: FERROUS SULFATE 325MG TAB PO SCH (09:00)
[2016-09-15] MEDS: PARoxetine 20 MG TAB PO SCH (09:00)
[2016-09-15] MEDS: ASPIRIN 81 MG ENTERIC TAB PO SCH (09:00)
[2016-09-15] MEDS ORDERED: OMEPRAZOLE 20 MG CAP PO SCH (09:00)
[2016-09-15] MEDS: SENOKOT S TAB PO SCH ×2 (09:00→19:42)
[2016-09-15] MEDS: LACTULOSE 20 GM/30 ML SYRUP UD PO SCH ×2 (09:00→19:41)
[2016-09-15] MEDS: CLOPIDOGREL 75 MG TAB PO SCH (09:00)
[2016-09-15] MEDS: CARVedilol 3.125 MG TAB PO SCH ×2 (09:00→19:42)
[2016-09-15] MEDS ORDERED: AZITHROMYCIN INJ 500 MG, VIAL MATE ADAPTER 1 EACH in D5W 250 ML IV ONE (09:00)
[2016-09-15] MEDS: ISOSORBIDE MON. (IMDUR) 30 MG XR TAB PO SCH (09:00)
[2016-09-15] MEDS: MULTIVITAMINS/MINERALS THERAP 1 TAB PO SCH (09:00)
[2016-09-15] MEDS: cefTRIAXone SOD 1 GM in D5W MINI-BAG PLUS 50 ML IV SCH (09:18)
[2016-09-15] MEDS ORDERED: LACTULOSE 20 GM/30 ML SYRUP UD PR ONE (11:15)
[2016-09-15] MEDS: PANTOPRAZOLE 40MG INJ (PROTONIX) (C9113) IV SCH (11:29)
--- NOTE | 2016-09-15 14:33 | IPNPDOC ---
Text Note Date of Service The patient was seen on 09/15/16. NOTE Subjective: Patient is a 76 year old male with a PMHx of COPD, Systolic CHF (EF: 20%), Mitral regurgitation, HTN, CAD s/p CABG, CKD3, DLP, CVA, Anemia, Anxiety, Hx of Upper GI bleed, Hx of Papillary renal CA, and GERD who presented to the ER with altered mental status. Patient had activated his life alert button and upon initial evaluation he was noted to exhibit paranoid behavior. Patient was recently admitted from 06/06 to 06/15 for possible COPD exacerbation requiring BIPAP. During that hospital course he was found to have a very low EF and had a LifeVest established prior to discharge. Patient was seen and examined at the bedside. Currently he is very agitated and not cooperating. He refuses to take medications and answer questions. Objective: Vitals (See below) General: Lying in bed, no acute distress, comfortable, Knows his name - refuses to answer other questions HEENT: NC, AT CVS: RRR, +S1S2 Lungs: Fair air entry b/l, -w/r/r Abdomen: Soft, ND, NT, +BSx4 Extremities: +PPx4, - Edema, - Calf tenderness Assessment and plan: 1. Acute metabolic encephalopathy - possibly 2/2 ... - Presented with agitation and paranoia - Physical reveals that he is oriented to person at this time; refuses to answer additional questions - Labs reveal mild leukocytosis, Elevated lactic acid, Elevated ammonia - ABG with respiratory acidosis - CXR 09/14: RLL pneumonia - CT head 09/14: no acute pathology; right maxillary sinusitis A. Acid base disturbance (Lactic acidosis, Respiratory acidosis - 2/2 possible COPD exacerbation) - c/w Solumedrol, Duoneb, Budesonide B. 2/2 medications / intoxication - c/w Aspiration precautions - avoid sedative medications at this time C. 2/2 Elevated ammonia - c/w Lactulose (given rectally via enema since not taking PO) D. Possibly 2/2 infection (2/2 Community acquire pneumonia) - will f/u blood cultures, urine cultures and sputum cultures - c/w Ceftriaxone and Azithromycin (Day #1) 2. Normocytic anemia - Hg at baseline of 10- - will monitor for now 3. CKD3 - Cr better than baseline at this time 4. Severe protein calorie malnutrition with cachexia 5. Continuous nicotine dependence - c/w nicotine patch 6. HTN - BP well controlled currently - will c/w Carvedilol, Isosorbide mononitrate 7. CAD s/p CABG - c/w ASA, Plavix, Carvedilol, Isosorbide mononitrate 8. Systolic CHF (EF: 20%) / Mitral regurgitation - Clinically does not appear to have any signs of fluid overload - Was advised to keep a life vest on continually - Elevated BNP - c/w Carvedilol, Isosorbide mononitrate - Not on a standing dose of lasix - Will keep on telemetry until life vest is available 9. Anxiety - hold sedatives at this time 10. DLP - c/w Atorvastatin 11. GERD - dc omeprazole - start Protonix IV VS,Fishbone, I+O VS, Fishbone, I+O Laboratory Tests 09/14/16 18:21 Red Blood Count 3.57 L, Mean Corpuscular Volume 87.8, Mean Corpuscular Hemoglobin 27.6, Mean Corpuscular Hemoglobin Concent 31.4 L, Red Cell Distribution Width 14.4 09/15/16 04:41 Red Blood Count 4.10 L, Mean Corpuscular Volume 87.8, Mean Corpuscular Hemoglobin 26.6 L, Mean Corpuscular Hemoglobin Concent 30.2 L, Red Cell Distribution Width 14.4, Neutrophils (%) (Auto) 92.4 H, Lymphocytes (%) (Auto) 4.5 L, Monocytes (%) (Auto) 1.7, Eosinophils (%) (Auto) 0.3, Basophils (%) (Auto ) 0.4, Neutrophils # (Auto) 10.3 H, Lymphocytes # (Auto) 0.5 L, Monocytes # ( Auto) 0.2, Eosinophils # (Auto) 0.0, Basophils # (Auto) 0.0, Calcium Level 9.2 Vital Signs Date Time Temp Pulse Resp B/P (MAP) Pulse Ox O2 Delivery O2 Flow Rate FiO2 09/15/16 12:00 Nasal Cannula 2.0 09/15/16 12:00 98.5 82 22 122/58 (79 97 I&O- Last 24 Hours up to 6 AM 09/15/16 06:00 Intake Total 0 ml Output Total 550 ml Balance -550 ml CHONG BLANC MD September 15, 2016 14:28
[2016-09-15 17:05] LABS: ABG BASE EXCESS 1.9 (-2.0-2.0); ABG HCO3 27.9 MEQ/L (22.0-26.0); ABG PARTIAL PRESSURE CO2 49.9 mmHg (35.0-45.0); ABG PARTIAL PRESSURE O2 80.4 mmHg (75.0-100.0); ABG STANDARD HCO3 26.2 MEQ/L (22.0-26.0); ABG TOTAL CO2 29.4 MEQ/L (23.0-31.0); ABG pH (ARTERIAL) 7.365 UNITS (7.350-7.450)
[2016-09-15 18:03] LABS: ALBUMIN 2.8 GM/DL (3.2-5.2); ALKALINE PHOSPHATASE 72 U/L (45-117); ALT/SGPT 16 U/L (12-78); ANION GAP 5 MEQ/L (8-16); AST/SGOT 12 U/L (15-37); BILIRUBIN,TOTAL 0.2 MG/DL (0.2-1.0); BLOOD UREA NITROGEN 32 MG/DL (7-18); CALCIUM LEVEL 9.1 MG/DL (8.8-10.2); CARBON DIOXIDE LEVEL 33 MEQ/L (21-32); CHLORIDE LEVEL 105 MEQ/L (98-107); GLOMERULAR FILTRATION RATE > 60.0 (>42); GLUCOSE, FASTING 93 MG/DL (83-110); MAGNESIUM LEVEL 2.2 MG/DL (1.8-2.4); PHOSPHORUS LEVEL 4.6 MG/DL (2.5-4.9); POTASSIUM SERUM 4.7 MEQ/L (3.5-5.1); SODIUM LEVEL 143 MEQ/L (136-145); TOTAL PROTEIN 5.6 GM/DL (6.4-8.2)
[2016-09-15] MEDS: methylPREDNISolone INJ 40 MG/1 ML VIAL (J2920) IV SCH (18:23)
[2016-09-15] MEDS: ATORVASTATIN 20 MG TAB PO SCH (19:42)
[2016-09-16] VITALS (8 sets, daily range): BP systolic 103–143; BP diastolic 48–88
[2016-09-16] MEDS: methylPREDNISolone INJ 40 MG/1 ML VIAL (J2920) IV SCH ×2 (01:19→09:58)
[2016-09-16] MEDS: IPRATROPIUM 0.5MG/ALBUTEROL 2.5MG INH SOL UD 3ML (DUONEB)(J7620) NEB SCH ×6 (03:22→23:01)
[2016-09-16 03:31] LABS: DIFF SLIDE NUMBER 302; MEAN CORPUSCULAR HEMOGLOBIN 26.6 pg (27.0-33.0); MEAN CORPUSCULAR VOLUME 88.5 fl (80.0-96.0); PLATELET COUNT, AUTOMATED 463 k/mm3 (150-450); RED CELL DISTRIBUTION WIDTH 14.2 % (11.5-14.5); WHITE BLOOD COUNT 7.8 K/mm3 (4.0-10.0)
[2016-09-16 04:29] LABS: HYPOCHROMASIA 1+
[2016-09-16 04:40] LABS: BASO % 0.1 % (0.0-1.0); EOS % 0.1 % (0.0-3.0); LARGE UNSTAINED CELL # 0.1 K/mm3 (0.0-0.4); LARGE UNSTAINED CELL % 0.9 % (0.0-4.0); LYMPH # 0.5 K/mm3 (1.5-4.5); MEAN CORPUSCULAR HEMOGLOBIN 26.2 pg (27.0-33.0); MEAN CORPUSCULAR HGB CONC 29.9 g/dl (32.0-36.5); MEAN CORPUSCULAR VOLUME 87.7 fl (80.0-96.0); MONO # 0.2 K/mm3 (0.0-0.8); MONO % 2.8 % (0.0-5.0); NEUTROPHILS % 90.1 % (36.0-66.0); PLATELET COUNT, AUTOMATED 428 k/mm3 (150-450); RED CELL DISTRIBUTION WIDTH 14.3 % (11.5-14.5); WHITE BLOOD COUNT 7.8 K/mm3 (4.0-10.0)
[2016-09-16 04:55] LABS: CALCIUM LEVEL 8.7 MG/DL (8.8-10.2); CREATININE FOR GFR 1.33 MG/DL (0.70-1.30); GLOMERULAR FILTRATION RATE 55.4 (>42)
[2016-09-16 05:02] LABS: POTASSIUM SERUM 5.3 MEQ/L (3.5-5.1)
[2016-09-16] MEDS: LACTULOSE 20 GM/30 ML SYRUP UD PO SCH (07:58)
[2016-09-16] MEDS: cefTRIAXone SOD 1 GM in D5W MINI-BAG PLUS 50 ML IV SCH (07:59)
[2016-09-16] MEDS: MULTIVITAMINS/MINERALS THERAP 1 TAB PO SCH (07:59)
[2016-09-16] MEDS: PANTOPRAZOLE 40MG INJ (PROTONIX) (C9113) IV SCH (07:59)
[2016-09-16] MEDS: CLOPIDOGREL 75 MG TAB PO SCH (07:59)
[2016-09-16] MEDS: PARoxetine 20 MG TAB PO SCH (08:00)
[2016-09-16] MEDS: SENOKOT S TAB PO SCH ×2 (08:00→20:24)
[2016-09-16] MEDS: ISOSORBIDE MON. (IMDUR) 30 MG XR TAB PO SCH (08:00)
[2016-09-16] MEDS ORDERED: SOD POLYSTYRENE SULFONATE SUSP 15 GM/60 ML UD PO ONE ×2 (08:00→15:00)
[2016-09-16] MEDS: FERROUS SULFATE 325MG TAB PO SCH (08:00)
[2016-09-16] MEDS: CARVedilol 3.125 MG TAB PO SCH ×2 (08:00→20:25)
[2016-09-16] MEDS: ASPIRIN 81 MG ENTERIC TAB PO SCH (08:01)
[2016-09-16] MEDS: SYMBICORT 160/4.5MCG INHALER 6GM INH SCH ×2 (08:09→19:33)
--- NOTE | 2016-09-16 13:06 | IPNPDOC ---
Text Note Date of Service The patient was seen on 09/16/16. NOTE Subjective: Patient is a 76 year old male with a PMHx of COPD, Systolic CHF (EF: 20%), Mitral regurgitation, HTN, CAD s/p CABG, CKD3, DLP, CVA, Anemia, Anxiety, Hx of Upper GI bleed, Hx of Papillary renal CA, and GERD who presented to the ER with altered mental status. Patient had activated his life alert button and upon initial evaluation he was noted to exhibit paranoid behavior. Patient was recently admitted from 06/06 to 06/15 for possible COPD exacerbation requiring BIPAP. During that hospital course he was found to have a very low EF and had a LifeVest established prior to discharge. Patient was seen and examined at the bedside. He notes that he is feeling well, no issues that he notes. Objective: Vitals (See below) General: Lying in bed, no acute distress, comfortable, AAOx3 HEENT: NC, AT CVS: RRR, +S1S2 Lungs: Fair air entry b/l, -w/r/r Abdomen: Soft, ND, NT, +BSx4 Extremities: +PPx4, - Edema, - Calf tenderness Assessment and plan: 1. Acute metabolic encephalopathy - possibly 2/2 ... acid / base disturbance, intoxication / medications, infection - Initially presented with agitation / paranoia that has resolved - Currently AAOx3 - Labs abnormalities resolved (s/p Leukocytosis, Lactic acidosis) - ABG with improvement in CO2 retention - CXR 09/14: RLL pneumonia - CT head 09/14: no acute pathology; right maxillary sinusitis A. Acid base disturbance (Lactic acidosis, Respiratory acidosis - 2/2 possible COPD exacerbation) - c/w Duoneb, Budesonide - will d/c solumedrol; will start Prednisone taper B. 2/2 medications / intoxication - avoid sedative medications at this time - Will start diet at this time C. 2/2 Elevated ammonia - Will DC lactulose D. Possibly 2/2 infection (2/2 Community acquire pneumonia) - Blood cultures negative at 24 hours, Urine cultures negative, Sputum cultures pending - c/w Ceftriaxone and Azithromycin (Day #2) 2. Normocytic anemia - Hg at baseline of 10-11 - will monitor for now 3. CKD3 - Cr baseline of 1.4-1.5 - Cr better than baseline at this time 4. Severe protein calorie malnutrition with cachexia 5. Continuous nicotine dependence - c/w nicotine patch 6. HTN - BP well controlled currently - c/w Carvedilol, Isosorbide mononitrate 7. CAD s/p CABG - c/w ASA, Plavix, Carvedilol, Isosorbide mononitrate 8. Systolic CHF (EF: 20%) / Mitral regurgitation - Clinically does not appear to have any signs of fluid overload - Was advised to keep a life vest on continually - Elevated BNP - ECHO 06/07: EF: 20%, Diastolic dysfunction, Moderate MR, Trace pericardial effusion - c/w Carvedilol, Isosorbide mononitrate - Not on a standing dose of Lasix - Will keep on telemetry until life vest is available 9. Anxiety - hold sedatives at this time 10. DLP - c/w Atorvastatin 11. GERD - dc Protonix IV - start omeprazole VS,Fishbone, I+O VS, Fishbone, I+O Laboratory Tests 09/15/16 17:14 Red Blood Count 3.88 L, Mean Corpuscular Volume 88.5, Mean Corpuscular Hemoglobin 26.6 L, Mean Corpuscular Hemoglobin Concent 30.0 L, Red Cell Distribution Width 14.2, Calcium Level 9.1, Phosphorus Level 4.6, Aspartate Amino Transf (AST/SGOT) 12 L, Alanine Aminotransferase (ALT/SGPT) 16, Total Creatine Kinase 99, Alkaline Phosphatase 72, Total Bilirubin 0.2, Total Protein 5.6 L, Albumin 2.8 L 09/16/16 04:21 Red Blood Count 3.76 L, Mean Corpuscular Volume 87.7, Mean Corpuscular Hemoglobin 26.2 L, Mean Corpuscular Hemoglobin Concent 29.9 L, Red Cell Distribution Width 14.3, Calcium Level 8.7 L, Neutrophils (%) (Auto) 90.1 H, Lymphocytes (%) (Auto) 6.0 L, Monocytes (%) (Auto) 2.8, Eosinophils (%) (Auto) 0.1, Basophils (%) (Auto) 0.1, Neutrophils # (Auto) 7.0, Lymphocytes # (Auto) 0.5 L, Monocytes # (Auto) 0.2, Eosinophils # (Auto) 0.0, Basophils # (Auto) 0.0 Vital Signs Date Time Temp Pulse Resp B/P (MAP) Pulse Ox O2 Delivery O2 Flow Rate FiO2 09/16/16 12:00 Nasal Cannula 2.0 09/16/16 12:00 98.6 76 19 143/67 (68) 98 I&O- Last 24 Hours up to 6 AM 09/16/16 06:00 Intake Total 305 ml Output Total 185 ml Balance 120 ml CHONG BLANC MD September 16, 2016 13:06
[2016-09-16 14:35] LABS: MAGNESIUM LEVEL 2.5 MG/DL (1.8-2.4); PHOSPHORUS LEVEL 4.7 MG/DL (2.5-4.9)
[2016-09-16 14:47] LABS: POTASSIUM SERUM 5.2 MEQ/L (3.5-5.1)
[2016-09-16] MEDS: predniSONE 20 MG TAB PO SCH (17:36)
[2016-09-16] MEDS: OMEPRAZOLE 20 MG CAP PO SCH (20:25)
[2016-09-16] MEDS: ATORVASTATIN 20 MG TAB PO SCH (21:00)
[2016-09-16] MEDS ORDERED: AZITHROMYCIN 250 MG TAB PO SCH (21:00)
[2016-09-17] VITALS (8 sets, daily range): BP systolic 121–163; BP diastolic 62–95
[2016-09-17] MEDS: IPRATROPIUM 0.5MG/ALBUTEROL 2.5MG INH SOL UD 3ML (DUONEB)(J7620) NEB SCH ×4 (02:37→16:51)
[2016-09-17 04:49] LABS: BASO % 0.1 % (0.0-1.0); EOS % 0.1 % (0.0-3.0); LARGE UNSTAINED CELL # 0.1 K/mm3 (0.0-0.4); LYMPH # 0.4 K/mm3 (1.5-4.5); LYMPH % 5.5 % (24.0-44.0); MEAN CORPUSCULAR HEMOGLOBIN 26.5 pg (27.0-33.0); MEAN CORPUSCULAR HGB CONC 30.3 g/dl (32.0-36.5); MEAN CORPUSCULAR VOLUME 87.5 fl (80.0-96.0); MONO # 0.4 K/mm3 (0.0-0.8); MONO % 5.2 % (0.0-5.0); NEUTROPHILS # 5.9 K/mm3 (1.8-7.7); NEUTROPHILS % 88.1 % (36.0-66.0); PLATELET COUNT, AUTOMATED 388 k/mm3 (150-450); RED CELL DISTRIBUTION WIDTH 14.3 % (11.5-14.5); WHITE BLOOD COUNT 6.7 K/mm3 (4.0-10.0)
[2016-09-17] MEDS: predniSONE 20 MG TAB PO SCH ×2 (05:11→16:58)
[2016-09-17 05:16] LABS: CREATININE FOR GFR 1.58 MG/DL (0.70-1.30); GLOMERULAR FILTRATION RATE 45.4 (>42)
[2016-09-17 05:39] LABS: POTASSIUM SERUM 3.9 MEQ/L (3.5-5.1)
[2016-09-17] MEDS: SYMBICORT 160/4.5MCG INHALER 6GM INH SCH (07:24)
[2016-09-17] MEDS: HumaLOG INSULIN (NovoLOG) PER UNIT SC SCH ×3 (07:30→16:57)
[2016-09-17] MEDS ORDERED: GLUCAGON FOR INJ 1 MG VIAL (J1610) SC PRN (07:45)
[2016-09-17] MEDS ORDERED: GLUCOSE 4 GM CHEW TABLET PO PRN (07:45)
[2016-09-17] MEDS ORDERED: DEXTROSE 50% 50 ML SYRINGE IV PRN (07:45)
[2016-09-17 07:51] LABS: RETIC HEMOGLOBIN CONTENT CHr 25.9 PG (24-36); RETICULOCYTE ABSOLUTE ADVIA212 77 x10(9)/L (17-77)
[2016-09-17] MEDS: CLOPIDOGREL 75 MG TAB PO SCH (09:15)
[2016-09-17] MEDS: SENOKOT S TAB PO SCH (09:15)
[2016-09-17] MEDS: PARoxetine 20 MG TAB PO SCH (09:15)
[2016-09-17] MEDS: ASPIRIN 81 MG ENTERIC TAB PO SCH (09:15)
[2016-09-17] MEDS: OMEPRAZOLE 20 MG CAP PO SCH (09:16)
[2016-09-17] MEDS: CARVedilol 3.125 MG TAB PO SCH (09:16)
[2016-09-17] MEDS: FERROUS SULFATE 325MG TAB PO SCH (09:16)
[2016-09-17] MEDS: ISOSORBIDE MON. (IMDUR) 30 MG XR TAB PO SCH (09:19)
[2016-09-17] MEDS: cefTRIAXone SOD 1 GM in D5W MINI-BAG PLUS 50 ML IV SCH (09:19)
[2016-09-17] MEDS: MULTIVITAMINS/MINERALS THERAP 1 TAB PO SCH (09:19)
--- NOTE | 2016-09-17 10:43 | REP ---
Clinical: Rule out hydronephrosis. Technique: Real time stroud scale ultrasound examination using curved array transducer. Findings: The patient is noted to be status post right nephrectomy. The right renal fossa is normal in appearance and without obvious mass lesion or fluid collection. The left kidney measures 12.5 x 5.0 x 5.5 cm and demonstrates 3.6 cm, 2.5 cm, 1.0 cm cortical cysts without hydronephrosis, nephrolithiasis or obvious mass lesion. The bladder appears distended and without wall thickening or obvious mass lesion. Impression: 1. Status post right nephrectomy. 2. Left kidney demonstrates few simple cysts and no hydronephrosis. Signed by Garret Lynn MD 09/17/2016 10:34 A
--- NOTE | 2016-09-17 11:25 | IPNPDOC ---
Text Note Date of Service The patient was seen on 09/17/16. NOTE Subjective: Patient is a 76 year old male with a PMHx of COPD, Systolic CHF (EF: 20%), Mitral regurgitation, HTN, CAD s/p CABG, CKD3, DLP, CVA, Anemia, Anxiety, Hx of Upper GI bleed, Hx of Papillary renal CA, and GERD who presented to the ER with altered mental status. Patient had activated his life alert button and upon initial evaluation he was noted to exhibit paranoid behavior. Patient was recently admitted from 06/06 to 06/15 for possible COPD exacerbation requiring BIPAP. During that hospital course he was found to have a very low EF and had a LifeVest established prior to discharge. Patient was seen and examined at the bedside. Currently he notes that he is feeling better. He denies any SOB, he does note a productive cough. He denies any urinary problems and notes that he urinates regularly. Objective: Vitals (See below) General: Lying in bed, no acute distress, comfortable, AAOx3 HEENT: NC, AT CVS: RRR, +S1S2 Lungs: Fair air entry b/l, no appreciable wheezing / rhonchi at this time Abdomen: Soft, ND, NT, +BSx4 Extremities: +PPx4, - Edema, - Calf tenderness Assessment and plan: 1. s/p Acute metabolic encephalopathy - possibly 2/2 acid / base disturbance (2/ 2 lactic acidosis and respiratory acidosis - possibly 2/2 acute COPD exacerbation), intoxication / medications, infection (2/2 Community acquire pneumonia) - Initially presented with agitation / paranoia that has resolved - Currently AAOx3 - CT head 09/14: no acute pathology; right maxillary sinusitis - avoid sedative medications at this time 2. Acute hypercapnic respiratory failure - possible 2/2 acute COPD exacerbation and Community acquire pneumonia - Still notes a productive cough, no shortness of breath - Physical unrevealing - Blood cultures negative at 24 hours, Urine cultures negative, Sputum cultures pending - CXR 09/14: RLL pneumonia - c/w Prednisone (will taper); s/p Solumedrol - c/w Duoneb, Budesonide - c/w Ceftriaxone and Azithromycin (Day #2) 3. Normocytic anemia - Hg at baseline of 10-11 - No reported blood loss, no blood in stool - Hg this morning has trended down to 8.4 - Iron panel consistent with DEYA - Occult blood positive - will repeat H&H at 12PM - Transfusion consent documented; will transfuse if <8 / Symptomatic - c/w Ferrous sulfate 4. Systolic CHF (EF: 20%) / Mitral regurgitation - Clinically does not appear to have any signs of fluid overload - Was advised to keep a life vest on continually - Elevated BNP - ECHO 06/07: EF: 20%, Diastolic dysfunction, Moderate MR, Trace pericardial effusion - c/w Carvedilol, Isosorbide mononitrate - Not on a standing dose of Lasix - I have advised patient that he may need to have a LifeVest before he leave the hospital; he has refused to wear it - He is aware of the consequence of not wearing the vest; including worsening of CHF, arrhythmia and 5. CKD3 - Cr baseline of 1.4-1.5 - Cr today is at 1.58 - Renal US negative for hydronephrosis on L - will follow Cr 6. History of Renal Cell CA - s/p Right nephrectomy 7. CAD s/p CABG - c/w ASA, Plavix, Carvedilol, Isosorbide mononitrate 8. HTN - BP well controlled currently - c/w Carvedilol, Isosorbide mononitrate 9. Depression / Anxiety - c/w Paroxetine - hold sedatives at this time 10. DLP - c/w Atorvastatin 11. Continuous nicotine dependence - c/w nicotine patch 12. Severe protein calorie malnutrition with cachexia 13. GERD - c/w omeprazole 14. DVT prophylaxis - c/w SCDs Disposition: - Awaiting PT evaluation; currently uses wheelchair at baseline - Awaiting repeat H&H at 12PM - determine if transfusion is required - c/w Prednisone taper and antibiotics - Monitor renal function VS,Juan José, I+O VS, Juan José, I+O Laboratory Tests 09/16/16 13:20 09/17/16 04:20 Red Blood Count 3.16 L, Mean Corpuscular Volume 87.5, Mean Corpuscular Hemoglobin 26.5 L, Mean Corpuscular Hemoglobin Concent 30.3 L, Red Cell Distribution Width 14.3, Neutrophils (%) (Auto) 88.1 H, Lymphocytes (%) (Auto) 5.5 L, Monocytes (%) (Auto) 5.2 H, Eosinophils (%) (Auto) 0.1, Basophils (%) ( Auto) 0.1, Neutrophils # (Auto) 5.9, Lymphocytes # (Auto) 0.4 L, Monocytes # ( Auto) 0.4, Eosinophils # (Auto) 0.0, Basophils # (Auto) 0.0, Calcium Level 8.0 L Vital Signs Date Time Temp Pulse Resp B/P (MAP) Pulse Ox O2 Delivery O2 Flow Rate FiO2 09/17/16 09:16 142/65 09/17/16 08:00 97.5 86 20 92 Nasal Cannula 2.0 I&O- Last 24 Hours up to 6 AM 09/17/16 06:00 Intake Total 2330 ml Output Total 0 ml Balance 2330 ml CHONG BLANC MD September 17, 2016 11:25
[2016-09-17 13:26] LABS: CREATININE FOR GFR 1.26 MG/DL (0.70-1.30); GLOMERULAR FILTRATION RATE 58.9 (>42)
[2016-09-17] MEDS ORDERED: HumaLOG INSULIN (NovoLOG) PER UNIT SC SCH (21:00)
[2016-09-18 09:05] LABS: FOLATE 17.1 NG/ML (>5.4)
--- NOTE | 2016-09-18 13:50 | DSES ---
DATE OF ADMISSION: 09/15/2016 DATE OF DISCHARGE: 09/17/2016 PRIMARY CARE PHYSICIAN: Dr. Michael Chavarria CONSULTING PHYSICIAN: None. CONDITION ON DISCHARGE: Guarded. FINAL DIAGNOSES: 1. Acute metabolic encephalopathy likely secondary to multifactorial etiology secondary to acid base disturbance from lactic acidosis and respiratory acidosis possibly secondary to acute chronic obstructive pulmonary disease (COPD) exacerbation and also component of intoxication, plus medications, possibly secondary to infection secondary to community acquired pneumonia. 2. Acute hypercapnic respiratory failure possibly secondary to acute COPD exacerbation and community acquired pneumonia. HISTORY OF PRESENT ILLNESS: The patient is a 76-year old male with a past medical history of COPD, systolic congestive heart failure with ejection fraction of 20%, mitral regurgitation, hypertension, coronary artery disease status post coronary artery bypass graft, chronic kidney disease Stage III, dyslipidemia, cerebrovascular accident, anemia, anxiety, history of upper GI bleed, history of papillary renal carcinoma, and gastroesophageal reflux disease who presented to the emergency room with altered mental status. The patient had activated his Life Alert button and upon initial evaluation he was noted to exhibit paranoid behavior. The patient was recently admitted from 06/06/2016 to 06/15/2016 for possible COPD exacerbation requiring BiPAP supplementation. During his hospital course, he was found to have a very low ejection fraction and had a Life Alert established prior to discharge. On presentation to the emergency room, the patient was found to have altered mental status and very confused. He was admitted to the intensive care unit (ICU) for acute metabolic encephalopathy. HOSPITAL COURSE: 1. Acute metabolic encephalopathy possibly secondary to acid base disturbance/lactic acidosis and respiratory acidosis, possibly related to acute COPD exacerbation, medications or infection. Initially presently with agitation and paranoid behavior which has resolved. CT scan was negative for any acute pathology. Avoided sedative medications. 2. Acute hypercapnic respiratory failure, possibly secondary to acute COPD exacerbation and community acquired pneumonia. The patient had a productive cough with no shortness of breath. Physical was unrevealing. Blood cultures initially revealed no positive results. Chest x-ray revealed right lower lobe infiltrate. The patient was started on Solu-Medrol and transitioned to prednisone. The patient was put on DuoNeb and budesonide. The patient was put on azithromycin and ceftriaxone and received a two day course of antibiotics. 3. Normocytic anemia; Requiring transfusion 4. Systolic congestive heart failure. 5. Chronic kidney disease Stage III. 6. History of renal cell carcinoma. 7. Coronary artery disease status post coronary artery bypass graft. 8. Hypertension. 9. Depression and anxiety. 10. Dyslipidemia. 11. Continued nicotine dependence. 12. Severe protein calorie malnutrition and cachexia. 13. Gastroesophageal reflux disease. 14. Deep vein thrombosis prophylaxis. DISCHARGE INSTRUCTIONS: The patient was advised to remain inpatient for continued monitoring of his hemoglobin and continued monitoring of his altered mental status as well as treatment of his COPD exacerbation. The patient refused to remain inpatient and wanted to leave against medical advice. The risks of leaving against medical advice were explained to the patient which included worsening of his medical condition, disability and ; however, the patient refused to stay. He was aware of the risks and was fully oriented at that time when he made the decision. He was capable of making the decision at that time. He was oriented to person, place and time, as well as, he knew the president was. He was able to make complete sentences and make his own decisions at this time. The patient signed AMA paperwork and left against medical advice. The patient was advised to return to the emergency room if he experiences any problems or changes his mind. TIME SPENT ON DISCHARGE: 35 minutes. CUR[facility]
== END 2016-09-17 18:57 | disposition left against medical advice (07) | DRG 70 ==
LOC: M ED 18:19 → M ED INP 09-15 00:03 → M ICU 09-15 01:16
PROVIDERS: ADMIT Internal Medicine; ATTEND Internal Medicine
PROC: 30233N1 Transfusion of Nonautologous Red Blood Cells into Peripheral Vein, Percutaneous Approach (ICD-10-PCS; principal; 2016-09-17)
DX: G93.41 Metabolic encephalopathy (principal); E43 Unspecified severe protein-calorie malnutrition; J18.9 Pneumonia, unspecified organism; J96.02 Acute respiratory failure with hypercapnia; J44.1 Chronic obstructive pulmonary disease with (acute) exacerbation; E87.2 Acidosis; I50.20 Unspecified systolic (congestive) heart failure; I13.0 Hypertensive heart and chronic kidney disease with heart failure and stage 1 through stage 4 chronic kidney disease, or unspecified chronic kidney disease; N18.3 Chronic kidney disease, stage 3 (moderate); E78.5 Hyperlipidemia, unspecified; F41.9 Anxiety disorder, unspecified; F32.9 Major depressive disorder, single episode, unspecified; K21.9 Gastro-esophageal reflux disease without esophagitis; F17.200 Nicotine dependence, unspecified, uncomplicated; I25.10 Atherosclerotic heart disease of native coronary artery without angina pectoris; I34.0 Nonrheumatic mitral (valve) insufficiency; D64.9 Anemia, unspecified; Z86.73 Personal history of transient ischemic attack (TIA), and cerebral infarction without residual deficits; Z79.899 Other long term (current) drug therapy; Z79.82 Long term (current) use of aspirin; Z88.8 Allergy status to other drugs, medicaments and biological substances